=== PATIENT | female | born 1985 | race Caucasian/White ===

== ENCOUNTER → 2019-01-18 11:26 | Outpatient (CLI) | payer OTHER, SELFPAY ==
[2019-01-18 11:22] VITALS: BMI 35.3
--- NOTE | 2019-01-18 11:30 | RAD_ITS ---
STUDY: X-RAY - RIGHT ANKLE REASON FOR EXAM: Female, 33 years old. Lateral pain following a recent twisting injury to TECHNIQUE: 3 view(s) of the ankle. COMPARISON: None. FINDINGS: Normal visualized distal tibia and fibula. Normal medial and lateral malleoli. Normal tibiotalar articulation and ankle mortise. Normal visualized talus and calcaneus. The visualized subtalar, talonavicular, calcaneocuboid and tarsal articulations are normal. Lateral soft tissue swelling. RAD/Ankle min 3 Views IMPRESSION: Lateral soft tissue swelling. Electronically Signed: Ray Nguyen, at 12:21 EDT , Service support ,
== END ==
PROVIDERS: Family Provider Physician Assistant; PCP Physician Assistant; Referring Provider Physician Assistant Surgical; Visit Provider Physician Assistant Surgical
DX: S93.401A Sprain of unspecified ligament of right ankle, initial encounter (principal); W19.XXXA Unspecified fall, initial encounter
CPT/HCPCS: 73610

== ENCOUNTER 2021-08-11 15:50 | Outpatient (CLI) | payer OTHER, SELFPAY ==
[2021-08-11 16:18] VITALS: BP 122/79; TEMP 36.8
[2021-08-11 16:19] VITALS: PULSE 102; O2SAT 97
[2021-08-11 16:28] VITALS: BP 121/79; PULSE 99
[2021-08-11 16:30] LABS: Bedside Glucose 92 mg/dL (74-106)
[2021-08-11 16:38] VITALS: BP 118/72; PULSE 93
[2021-08-11] MEDS: 0.9% Normal Saline 1,000 ML 500 ML IV (17:05)
[2021-08-11] MEDS: Ondansetron 4 MG/2 ML Vial IV (17:09)
[2021-08-11 17:29] VITALS: BMI 34.4
[2021-08-11 17:33] LABS: Hematocrit 33.1 % (37-47); Hemoglobin 10.6 g/dL (12.0-15.0); Mean Corpuscular Hgb 28.3 pg (27.0-32.0); Mean Corpuscular Volume 88.5 fL (81-99); Mean Platelet Vol. 10.9 fl (6.2-12.0); Platelet Count 179 K/mm3 (150-450); RBC Distribution Width CV 15.9 % (11.6-14.6); RBC Distribution Width SD 51.7 fl (35.1-43.9); Red Blood Count 3.74 M/mm3 (4.2-5.4); White Blood Count 8.4 K/mm3 (4.4-11.0)
[2021-08-11 17:43] LABS: AST(SGOT) 20 U/L (15-37); Alanine Aminotransfer ALT/SGPT 27 U/L (13-56); Creatinine, Serum 0.51 mg/dL (0.55-1.02); EST Glomerular Filtration Rate 145 mL/min (>60); Est Glom Filt Rate - Afr Amer 175 mL/min (>60); Estimated Creatinine Clearance 146.87 ml/min
[2021-08-11 17:44] LABS: Anion Gap 8 (5-15); BUN 8 mg/dL (7-18); BUN/Creat Ratio 14.7 RATIO (10-20); Calcium,Total 8.9 mg/dL (8.5-10.1); Chloride 107 mmol/L (98-107); Creatinine, Serum 0.54 mg/dL (0.55-1.02); EST Glomerular Filtration Rate 134 mL/min (>60); Est Glom Filt Rate - Afr Amer 162 mL/min (>60); Estimated Creatinine Clearance 138.71 ml/min; Glucose 80 mg/dL (74-106); Potassium 3.5 mmol/L (3.5-5.1); Sodium Level 138 mmol/L (136-145)
[2021-08-11 18:02] LABS: Protein, Urine (Random) 91.7 mg/dL (<11.9); Protein:Creat Ratio 309 mg/g CRE (0-200)
--- NOTE | 2021-08-11 18:25 | OB.TRI.NOTE ---
HPI - General HPI Narrative BALTAZAR DEMPSEY, is a 36 F who presents with N&V since yesterday. She is feeling better since the zofran. Denies headache or blurry vision. Denies regular ctxs/VB/LOF. Also reports good FM. Maternal Data Information Gestational age: 34&5 PFSH [facility] Medical History (Updated 08/11/21 @ 18:[address] Brian Aguilar MD) Arthritis Home Medications acetaminophen 325 mg capsule 325 mg PO Q6H PRN 01/18/19 [History Last Taken Unknown] Benadryl 50 mg PO/SL QHS PRN 08/11/21 [History Last Taken Unknown] Humalog Pen 4 units OTHER BREAKFAST 08/11/21 [History Last Taken Unknown] Novolin N Flexpen 10 unit OTHER QHS 08/11/21 [History Last Taken 08/10/21 22:00] Novolin N Flexpen 16 unit OTHER DINNER 08/11/21 [History Last Taken 08/10/21 17:30] Novolin N Flexpen 30 units OTHER BREAKFAST 08/11/21 [History Last Taken 08/11/21 08:00] Prenatabs FA 1 tab PO/SL DAILY 08/11/21 [History Last Taken Unknown] iron 1 tablet PO/SL QODAY 08/11/21 [History Last Taken 08/09/21] omeprazole 1 tab PO/SL BID PRN 08/11/21 [History Last Taken Unknown] Allergy/AdvReac Type Severity Reaction Status Date / Time azithromycin Allergy Hives Verified 08/11/21 17:31 erythromycin base Allergy Unknown Verified 08/11/21 17:31 metoclopramide [From Reglan] Allergy Other Verified 08/11/21 17:31 Penicillins Allergy Hives Verified 08/11/21 17:31 Surgical History (Updated 01/18/19 @ 11:21 by Jodi Maxwell) Hx of section Social History (Updated 01/18/19 @ 12:08 by PHILOMENA Clarke) Smoking Status: Current some day smoker alcohol intake: never History Elective abortions Hx Para 1 Spontaneous abortions Hx # Term Pregnancies Ectopic pregnancies Hx # Pregnancies Multiple births # of living children NST FHR Rate Baby A Baseline: 135 Variability:: Moderate Accelerations:: 15 x 15 Decelerations:: None NST Reactive:: Yes Uterine Activity:: Irregular Assessment & Plan (1) Nausea/vomiting in : COMMENT: 34&5 PLAN: Labs overall normal Suspect GI virus IV hydration & anti-emetics GDM - BS normal Plan for discharge later today if continues to improve
[2021-08-11] MEDS: 0.9% Normal Saline 1,000 ML 200 ML IV (18:28)
--- NOTE | 2021-08-11 18:53 | NURSING ---
Patient is to skip Novolin N @ [facility]. Take full bedtime dose of Novolin N. Patient should not take Lispro while sick. If patient is still sick tomorrow, she should half each dose of her Novolin N.
[2021-08-11] MEDS: proMETHazine 25 MG Tablet PO (19:30)
[2021-08-11 19:42] VITALS: BP 119/73; PULSE 97
[2021-08-11] MEDS: Mag Hydrox/Al Hydrox/Simeth 30 ML UDC PO (21:26)
== END 2021-08-11 23:59 | disposition home or self-care (01) ==
LOC: WPOUT 16:01 → WP 16:01
PROVIDERS: PCP Physician Assistant; Visit Provider Obstetrics & Gynecology
DX: O21.2 Late vomiting of pregnancy (principal); O99.333 Smoking (tobacco) complicating pregnancy, third trimester; O99.891 Other specified diseases and conditions complicating pregnancy; F17.200 Nicotine dependence, unspecified, uncomplicated; M19.90 Unspecified osteoarthritis, unspecified site; Z3A.34 34 weeks gestation of pregnancy; Z79.899 Other long term (current) drug therapy
CPT/HCPCS: 36415; 59025; 59050; 80048; 82565; 82570; 82962; 84156; 84450; 84460; 84550; 85027; 96374; 99218; J7030; G0378; J2405

== ENCOUNTER 2021-09-10 05:00 | Inpatient (IN) | payer OTHER, SELFPAY ==
--- NOTE | 2021-09-07 10:34 | HP.PCM_ITS ---
History and Physical Date of Admission: 09/10/21 HPI: The patient is a 36 year old female presenting for pre-operative visit. She is scheduled for , for previous c/s, 39 weeks on 09/10/21. Procedure discussed along with risks, benefits and complications. Other alternatives discussed for management. Consent form signed? Yes. ? ? PAST MEDICAL HISTORY PAST MEDICAL HISTORY Diagnosis Date ? Anemia during in third trimester 07/06/2021 ? DEPRESSION ? ? elevated liver enzymes ? ? 1st ? Endometriosis ? ? Fibromyalgia ? ? Gestational diabetes mellitus, class A1 12/20/2016 ? Hypertension ? ? Infertility, female ? ? Clomid ? Lumbar herniated disc 10/2006 ? Migraines ? ? with aura ? PCOS (polycystic ovarian syndrome) ? ? depression ? ? ? PAST SURGICAL HISTORY PAST SURGICAL HISTORY Procedure Laterality Date ? DELIVERY ONLY ? 12/11/2013 ? , low transverse ? DELIVERY ONLY ? 03/06/2017 ? INSERTION OF IUD ? 07/31/2018 ? removed ? PAST SURGICAL HISTORY OF ? 2002 ? WISDOM TEETH ? ? ? CURRENT MEDICATIONS Current Outpatient Medications Medication Sig Dispense Refill ? lidocaine (XYLOCAINE) 5 % ointment Apply to affected area as needed (for rectal pain). use a small amount to affected area qid prn pain 50 g 1 ? insulin lispro 100 unit/mL injection Inject 4 Units subcutaneously daily with breakfast. 10 mL 0 ? insulin 50/50 lispro protamine/lispro units/mL (HUMALOG MIX 50-50 KWIKPEN) 100 unit/mL (50-50) inpn Inject 4 Units subcutaneously daily with breakfast. 15 mL 0 ? Insulin [place], Disposable, (PEN NEEDLE) 32 gauge x 5/32 1 Each once daily. 100 Each 5 ? insulin NPH (HumuLIN N,NovoLIN N) pen Inject 10 Units subcutaneously daily at bedtime. 30 units at breakfast and 16 units with supper 1 Pen 3 ? Insulin [place], Disposable, (MICRODOT INSULIN PEN NEEDLE) 32 gauge x 5/32 1 Each once daily. 30 Each 3 ? doxylamine-pyridoxine, vit B6, (DICLEGIS) 10-10 mg TbEC Take 2 tabs at night. If symptoms persist after 2 days add one tab in the morning. If symptoms still persist after 4 days add a tab mid-day 40 tablet 1 ? diphenhydramine HCl (BENADRYL ALLERGY ORAL) Take by mouth. ? ? ? Lancets lancets 1 Each four times daily. Use as instructed 120 Each 9 ? blood sugar diagnostic (FREESTYLE LITE STRIPS) test strip Use as instructed 120 Strip 4 ? omeprazole (PRILOSEC) 20 mg capsule Take 20 mg by mouth once daily. ? ? ? ondansetron orally disintegrating (ZOFRAN ODT) 4 mg disintegrating tablet Take 1 tablet by mouth every 8 hours as needed for nausea/vomiting. DISSOLVE ON TONGUE 30 tablet 1 ? [id number] fum-folic 27 mg iron- 800 mcg tab Take 1 tablet by mouth daily with breakfast. ? ? ? acetaminophen 325 mg cap PM ? ? ? DRYSOL 20 % external solution APPLY ONCE DAILY TO AFFECTED AREA(S) AT BEDTIME. ONCE EXCESSIVE SWEATING HAS STOPPED MAY DECREASE TO ONCE OR TWICE WEEKLY OR NEEDED. WASH ? ? ? acetaminophen 300 mg-caffeine 40 mg-butalbital 50 mg (FIORICET) per capsule Take 1 capsule by mouth every 4 hours as needed. (Patient not taking: Reported on 08/03/2021 ) 15 capsule 0 ? No current facility-administered medications for this visit. ? ? ALLERGIES: Penicillins, Erythromycin Base, and Reglan [Metoclopramide Hcl] ? PERSONAL HISTORY: SOCIAL HISTORY Social History ? Tobacco Use ? Smoking status: Current Some Day Smoker ? ? Years: 5.00 ? ? Types: Cigarettes ? Smokeless tobacco: Former User ? ? Types: Snuff ? ? Quit date: 03/30/2013 ? Tobacco comment: 1-3 cigarettes a day Vaping Use ? Vaping Use: Former ? Quit date: 02/05/2017 Substance Use Topics ? Alcohol use: Yes ? ? Comment: occasionally, NOT WHILE ? Drug use: No ? FAMILY HISTORY: FAMILY HISTORY FAMILY HISTORY Problem Relation Age of Onset ? Heart Father ? ? Hypertension Father ? ? Hypertension Paternal Grandmother ? ? Heart Paternal Grandmother ? ? other (PARKINSONS DISEASE) Paternal Grandmother ? ? Hypertension Paternal Grandfather ? ? Cancer Paternal Grandfather ? ? PRE-LEUKEMIA ? other ( DEPRESSION) Mother ? ? HAD ATTACHMENT DISORDER ? ? REVIEW OF SYMPTOMS: GENERAL: denies fevers or chills ENDOCRINOLOGY: has not been on steroids Cardiology : denies palpitations or chest pain Respiratory: denies SOB or cough Hematology: denies history of prolonged bleeding or easy bruising or VTE Allergy: Denies history of personal or family history of allergy to anesthesia ? PHYSICAL EXAMINATION: ? VITALS: Last menstrual period 12/05/2020. ? GENERAL: The patient is well nourished, well hydrated in no acute distress. , The patient is oriented to time, place, and person. NECK: Supple. No lynphadenopathy, normal thyroid, no thyromegaly. LUNGS: Clear to auscultation bilaterally. no wheezes, rhonchi or rales HEART: Regular rate and rhythm, Normal heart sounds and No murmurs or gallops abd- soft, nontender, gravid IMPRESSION: Estimated Date of Delivery: 09/17/21 w/ GDM A2 for repeat c/s ? PLAN: The risks/benefits/alternatives and personal involved for the planned repeat c/s were reviewed with the patient. Her questions were answered to her satisfaction and she desires to proceed. Consent was signed. I reviewed with her postop instructions and expectations. ? ? I have reviewed and updated past medical and surgical history, medications and allergies Assessment & Plan Assessment/Plan (1) Supervision of other high risk pregnancies, third trimester: (2) 39 weeks gestation of : (3) Gestational diabetes mellitus, class A2: (4) Advanced maternal age (AMA) in :
[2021-09-10] VITALS (24 sets, daily range): BP systolic 108–128; BP diastolic 58–95; PULSE 64–92; RESP 16–18; TEMP 36–36.6; O2SAT 93–99; BMI 35.0
[2021-09-10] MEDS: Lactated Ringers 1,000 ML 999 ML IV (05:35)
[2021-09-10] MEDS: Acetaminophen 500 MG Tablet 1000 MG PO ×4 (06:04→23:34)
[2021-09-10 06:14] LABS: Absolute Neutrophil Count 6.4 X10^3/uL (2.0-7.7); Basophil# 0.03 X10^3/uL; Basophil% 0.3 % (0-1); Eosinophil# 0.15 X10^3/uL; Eosinophils% 1.7 % (0-5); Hematocrit 32.3 % (37-47); Hemoglobin 10.4 g/dL (12.0-15.0); Lymphocyte % 17.3 % (19-41); Mean Corp Hgb Conc 32.2 g/dL (32-36); Mean Corpuscular Hgb 28.1 pg (27.0-32.0); Mean Corpuscular Volume 87.3 fL (81-99); Mean Platelet Vol. 11.5 fl (6.2-12.0); Monocyte# 0.48 X10^3/uL; Monocyte% 5.5 % (0-10); NRBC Flagged by Analyzer 0.7 % (0-5); Neutrophil # 6.39 X10^3/uL (2.7-7.7); Neutrophil % 73.8 % (47-70); Platelet Count 209 K/mm3 (150-450); RBC Distribution Width CV 15.7 % (11.6-14.6); RBC Distribution Width SD 49.7 fl (35.1-43.9); White Blood Count 8.7 K/mm3 (4.4-11.0)
[2021-09-10 06:15] LABS: Bedside Glucose 127 mg/dL (74-106)
[2021-09-10] MEDS: Lactated Ringers 1,000 ML 150 ML IV (06:26)
[2021-09-10] MEDS: Sodium Citrate/Citric Acid 30 ML UDC PO (07:07)
[2021-09-10] MEDS: Clindamycin 900 MG/50 ML BAG 75 MG IV (07:42)
--- NOTE | 2021-09-10 08:12 | OP.PCM_ITS ---
Maternal Data Information Final JAISON: 09/17/21 Gestational age: 39 0/7 Details Operative Information Date of Procedure: 09/10/21 Pre-Operative Diagnosis: 39 weeks, previous c/s Post-Operative Diagnosis: same Indications for : Repeat Elective Classification: Scheduled Procedure Type: low transverse four roll calender operator #1: Kerrie Hopkins Type of Anesthesia: Spinal Anesthesiologist: Zach Charles Special Medications: duramorph Antibiotic Given: Clindamycin 600mg IV x1 and Gentamicin 1.5mg/kg IV x1 Drain: Chaudhry to straight drain Estimated Blood Loss: 800 Fluids Replaced: 900 Procedure Start Time: 07:45 Procedure Stop Time: 08:14 Time of Delivery: 07:47 Findings Description of Procedure: The patient was taken to the operating room. She was prepped and draped in the dorsal supine position with a leftward tilt. A Pfannenstiel skin incision was made approximately 2 cm above the symphysis pubis and carried through to underlying layer fascia with the scalpel. The fascia was incised incised in the midline and extended laterally with the Gonzalez scissors. The fascia was dissected off the rectus muscles with blunt and sharp dissection. The rectus muscles were in the midline and the peritoneum was entered [bluntly]. The peritoneal incision was stretched and the bladder blade was placed. The uterine incision was made in a low transverse fashion with the scalpel and extended superiorly and inferiorly with blunt dissection. [The amniotic membranes were ruptured bluntly and clear amniotic fluid returned]. The 's head was brought to the incision in the flexed position and delivered without difficulty. The remainder of the infant was delivered with gentle traction and fundal pressure in the standard fashion. The mouth and nares were bulb suctioned. The cord was clamped and cut as the infant was stimulated. Cord clamping was delayed. The infant was handed off to the waiting nursing staff. The placenta was delivered with fundal massage and gentle traction in the standard fashion. The uterus was left in the peritoneal cavity cleared of all clots and debris. The cervix was dilated with a ring forcep. The uterine incision was closed with #1 Vicryl in a running locked fashion. A second layer of the same suture was used in an imbricating fashion. 2 [id number] sutures were needed to obtain hemostasis of some bleeding sinuses. The tubes and ovaries were examined and found to be normal. The incision was examined and was found to be hemostatic. The rectus muscles were examined and any bleeding was Bovie cauterized. The parietal peritoneum and rectus muscles were closed en bloc with an 0 Vicryl running suture. The surgical teams outer gloves were then changed. The rectus fascia was examined and any bleeding was Bovie cauterized and the rectus fascia was closed with 0 PDS suture in a running standard fashion. The subcutaneous tissue was examining and any bleeding was Bovie cauterized. The subcutaneous tissue was reapproximated with 3-0 Vicryl suture. The skin was closed in a subcuticular fashion by the DIRECTOR OF SURGERY with me present in the labor and delivery suite. I performed the remainder of the procedure with assistance. All sponge, lap, and needle counts were correct. The patient was taken to her room for recovery in a stable condition. Presentation: Positive for Vertex Amniotic Membrane Rupture Type: Spontaneous Amniotic Fluid Description: Clear Placental Delivery Description: Expressed Placenta Disposition: [facility] Specimen(s) Sent to Pathology: none Cord Vessel Description: 3 Vessels Cord Entanglement: None Infant A Gender: Male (9 lb 1 oz) (1 minute): 8 (5 minute): 9 Delayed Cord Clamping: Yes Complications Complications: none Admit VTE Documentation VTE Present on Admission: No VTE Mechan Device Prophylaxis: SCD's VTE Pharm Prophylaxis Ordered: Yes
[2021-09-10] MEDS: Oxytocin 30 units/NS 500 ml 30 UNITS/500 ML IV.SOLN 167 UNITS IV (08:45)
[2021-09-10] MEDS: Ketorolac 30 MG/ML Syringe IV ×3 (09:20→22:23)
[2021-09-10 09:30] LABS: Bedside Glucose 89 mg/dL (74-106)
[2021-09-10] MEDS: Senna/Docusate Sodium 1 Tablet PO (10:38)
[2021-09-10] MEDS: Lactated Ringers 1,000 ML 100 ML IV (12:09)
[2021-09-10] MEDS: Enoxaparin 40 MG/0.4 ML Syringe SC (20:18)
[2021-09-11 02:12] VITALS: BP 111/69; PULSE 76; RESP 14; TEMP 36.7; O2SAT 93
[2021-09-11 04:20] VITALS: BP 120/70; PULSE 86; RESP 14; TEMP 36.4; O2SAT 95
[2021-09-11] MEDS: Ketorolac 30 MG/ML Syringe IV (04:30)
[2021-09-11 06:02] VITALS: BP 115/71; PULSE 81; RESP 14; TEMP 36.6; O2SAT 96
[2021-09-11] MEDS: Acetaminophen 500 MG Tablet 1000 MG PO ×2 (06:18→12:16)
[2021-09-11 06:26] LABS: Hematocrit 29.8 % (37-47); Hemoglobin 9.4 g/dL (12.0-15.0); Mean Corp Hgb Conc 31.5 g/dL (32-36); Mean Corpuscular Hgb 27.7 pg (27.0-32.0); Mean Corpuscular Volume 87.9 fL (81-99); Mean Platelet Vol. 10.8 fl (6.2-12.0); Platelet Count 159 K/mm3 (150-450); RBC Distribution Width CV 15.8 % (11.6-14.6); RBC Distribution Width SD 50.2 fl (35.1-43.9); Red Blood Count 3.39 M/mm3 (4.2-5.4); White Blood Count 10.2 K/mm3 (4.4-11.0)
[2021-09-11 06:51] LABS: Bedside Glucose 78 mg/dL (74-106)
--- NOTE | 2021-09-11 06:59 | PCM.PN.OB ---
Subjective Subjective Patient seen at bedside. Feeling good. Denies any pain. Pain controlled with Tylenol and Toradol. Ambulating and voiding without difficulty. without support. Desires discharge home later today. Objective Data Objective Data Vital Signs: Vital Signs Temp Pulse Resp BP Pulse Ox 97.9 F 81 14 115/71 96 09/11/21 06:02 09/11/21 06:02 09/11/21 06:02 09/11/21 06:02 09/11/21 06:02 Oxygen Delivery Method Room Air Weight: 224 lb Body Mass Index (BMI) 35.0 Intake & Output: Intake and Output for Last 24 Hours 09/09/21 09/10/21 09/11/21 23:59 23:59 23:59 Intake Total 2711.42 / 2711.42 Output Total 1150 / 1150 Balance 1561.42 / 1561.42 Lab / Micro Data Result Diagrams: 09/11/21 06:10 Labs: Laboratory Results - last 24 hr 09/10/21 05:35: Blood Type O POSITIVE, Antibody Screen NEGATIVE 09/10/21 09:28: POC Glucose 89 09/11/21 06:10: WBC 10.2, RBC 3.39 L, Hgb 9.4 L, Hct 29.8 L, MCV 87.9, MCH 27.7, MCHC 31.5 L, RDW Std Deviation 50.2 H, RDW Coeff of Lux 15.8 H, Plt Count 159, MPV 10.8 09/11/21 06:40: POC Glucose 78 Micro: Microbiology 09/10/21 05:35 Nasal Secretion SARS-CoV-2 Antigen (Rapid) - Final ROS Eyes Eyes: Denies blurry vision, change in vision or spots in vision ENT HEENT: Denies dizziness or headache(s) Cardiovascular Cardiovascular: Denies abdominal pain, chest pain or dyspnea Respiratory/Chest Respiratory/Chest: Denies cough, dyspnea, shortness of breath at rest or shortness of breath with exertion Gastrointestinal Gastrointestinal: Denies abdominal pain, diarrhea or vomiting Genitourinary Genitourinary: Denies change in urinary stream, difficulty urinating or dysuria Musculoskeletal Musculoskeletal: Reports none Integumentary Integumentary: Denies rash Neurologic Neurologic: Denies dizziness, headache(s), memory loss or weakness Physical Exam Narrative Dressing is dry and intact Const alert and no apparent distress General Appearance: cooperative and comfortable Exam Limitations: no limitations HEENT normocephalic Eyes General Eye: normal appearance of both eyes Neck full ROM General: normal visual inspection Chest Chest: symmetrical chest wall rise Resp normal respiratory effort and normal air movement Effort and Inspection: symmetric chest movement Auscultation: clear to auscultation bilaterally Cardio regular rate and regular rhythm GI normal to inspection, nondistended, normoactive bowel sounds Back/Spine normal ROM Extremity full ROM and no calf tenderness General Extremity: normal exam except as noted Skin no rashes or lesions noted Neuro CN's II-XII intact bilaterally Psych mental status grossly normal Assessment & Plan (1) Delivery by section: (2) Care and examination of lactating mother: (3) Gestational diabetes mellitus, class A2: PLAN: PO day 1 Repeat C/S Pain control Routine care support BS stable this morning - 78 D/c home with follow up in office Friday for incision check
--- NOTE | 2021-09-11 07:07 | PCM.DC.SUM ---
Providers Date of Admission: 09/10/21 Primary Care Physician: PHILOMENA Martinez Reason For Visit: REPEAT Diagnosis Discharge Diagnosis (1) Delivery by section: Status: Acute (2) Care and examination of lactating mother: Status: Acute Code(s): Z39.1 - Encounter for care and examination of lactating mother (3) Gestational diabetes mellitus, class A2: Status: Acute Code(s): O24.419 - Gestational diabetes mellitus in , unspecified control Medications at Discharge Home Medications Prenatabs FA 1 tab PO/SL DAILY 08/11/21 iron 1 tablet PO/SL QODAY 08/11/21 Hospital Course Operations section Summary of Care Provided Hospital Course: Patient here for repeat section. Hospital course was uneventful. Physical Exam Narrative Dressing is dry and intact Const alert and no apparent distress General Appearance: cooperative and comfortable Exam Limitations: no limitations HEENT normocephalic Eyes General Eye: normal appearance of both eyes Neck full ROM General: normal visual inspection Chest Chest: symmetrical chest wall rise Resp normal respiratory effort and normal air movement Effort and Inspection: symmetric chest movement Auscultation: clear to auscultation bilaterally Cardio regular rate and regular rhythm GI normal to inspection, nondistended, normoactive bowel sounds Back/Spine normal ROM Extremity full ROM and no calf tenderness General Extremity: normal exam except as noted Skin no rashes or lesions noted Neuro CN's II-XII intact bilaterally Psych mental status grossly normal Weight / BMI Weight Weight: 224 lb Body Mass Index (BMI) 35.0 ABG / Lab / Microbiology Data Result Diagrams: 09/11/21 06:10 Laboratory: Laboratory Results - last 24 hr 09/10/21 05:35: Blood Type O POSITIVE, Antibody Screen NEGATIVE 09/10/21 09:28: POC Glucose 89 09/11/21 06:10: WBC 10.2, RBC 3.39 L, Hgb 9.4 L, Hct 29.8 L, MCV 87.9, MCH 27.7, MCHC 31.5 L, RDW Std Deviation 50.2 H, RDW Coeff of Lux 15.8 H, Plt Count 159, MPV 10.8 09/11/21 06:40: POC Glucose 78 Microbiology: Microbiology 09/10/21 05:35 Nasal Secretion SARS-CoV-2 Antigen (Rapid) - Final D/C Instructions Discharge Diet: No restrictions May resume sexual activity in: 6-8 weeks Weight Bearing Status: Weight bearing as tolerated Lifting Restrictions: 20 lbs Call your doctor if your incision/area has: Continuous Slow Oozing, Increased Pain/ Swelling, Increased Redness, Foul Smelling Discharge and Swelling at the incision site Call your doctor if you observe: Fever of 101 or Higher, Inability to urinate, Using more than 1 pad per hour, Shortness of breath, Chest pain, Calf discomfort and Uncontrolled pain Remove Dressing in: 5 days Cleanse incision/area with: Soap & Water and Keep Dressing Clean & Dry When: 1 week in office for incision check or sooner if needed 6 weeks Meaningful Use Info Meaningful Use Diagnoses (Choose all that apply): None applicable Discharge Plan Admission Admit Date/Time: 09/10/21 05:00 Primary Reason for Your Visit: Repeat section Attending Provider: Consuelo Llanos Primary Care Provider: Emili Dennis Discharge Orders/Prescriptions Prescriptions: Continued Prenatabs FA 1 tab PO/SL DAILY RF: 0 iron 1 tablet PO/SL QODAY RF: 0 Discontinued [id number] [Fioricet] 50-325-40 mg Tablet 1 tab PO PRN PRN (Reason: Headache) RF: 0 Benadryl 50 mg PO/SL QHS PRN (Reason: Sleep) RF: 0 Novolin N Flexpen 10 unit OTHER QHS RF: 0 Novolin N Flexpen 30 units OTHER BREAKFAST RF: 0 Novolin N Flexpen 16 unit OTHER DINNER RF: 0 omeprazole 1 tab PO/SL BID PRN (Reason: Heartburn) RF: 0 ondansetron 4 mg tablet,disintegrating 4 mg PO Q8H PRN (Reason: nausea and vomiting) Qty: 20 RF: 0 Referrals / Follow Up: Emili Dennis PA [Primary Care Provider] - Disposition Disposition (needs filled in before D/C Order can be placed): Home, Self Care
[2021-09-11 10:01] VITALS: BP 123/83; PULSE 89; RESP 18; TEMP 36.6; O2SAT 99
[2021-09-11] MEDS: Ibuprofen 600 MG Tablet PO (10:20)
[2021-09-11] MEDS: Senna/Docusate Sodium 1 Tablet PO (10:20)
== END 2021-09-11 13:25 | disposition home or self-care (01) | DRG 788 ==
PROVIDERS: Admitting Provider Obstetrics & Gynecology; PCP Physician Assistant; Visit Provider Obstetrics & Gynecology
PROC: 10D00Z1 Extraction of Products of Conception, Low, Open Approach (ICD-10-PCS; CPT 59514; principal; 2021-09-10 07:15)
DX: O34.211 Maternal care for low transverse scar from previous cesarean delivery (principal); O24.429 Gestational diabetes mellitus in childbirth, unspecified control; F17.210 Nicotine dependence, cigarettes, uncomplicated; Z79.4 Long term (current) use of insulin; O99.334 Smoking (tobacco) complicating childbirth; Z79.899 Other long term (current) drug therapy; Z3A.39 39 weeks gestation of pregnancy; Z20.822 Contact with and (suspected) exposure to COVID-19; Z37.0 Single live birth
CPT/HCPCS: 59025; 59050; 82962; 85025; 85027; 86850; 86900; 86901; 87426; 99218; 99251; 99406; J7120; G0378; G0463; J2405

== ENCOUNTER 2023-04-26 18:05 | Emergency (ER) | payer OTHER, SELFPAY ==
[2023-04-26 18:06] VITALS: BP 143/97; PULSE 71; RESP 16; TEMP 36.5; O2SAT 100; BMI 31.0
--- NOTE | 2023-04-26 18:25 | EDS_ITS ---
HPI History of Present Illness Chief Complaint: Nausea/Vomiting Informant: patient Onset/Context/Timing Onset: Days Narrative Narrative: Patient presents secondary to nausea and vomiting. She believes she is approx imately 6 weeks . She had GI symptoms over the break and just recently had 3 positive home test. She saw her [facility] because patient had an IUD. Ultrasounds did not reveal IUD and it is believed that it had fallen out. Patient states there was no evidence of ectopic on her ultrasound. She presents today secondary to nausea and vomiting. She did have hyperemesis with 2 out of her 3 prior pregnancies. [facility] Medical History 39 weeks gestation of Advanced maternal age (AMA) in Arthritis Care and examination of lactating mother Chronic hypertension Depression Gestational diabetes Gestational diabetes mellitus, class A2 depression Smoking Supervision of other high risk pregnancies, third trimester Home Medications Prenatabs FA 1 tab PO/SL DAILY 08/11/21 [History Last Taken 09/09/21] iron 1 tablet PO/SL QODAY anemia 08/11/21 [History Last Taken 09/06/21] cefdinir 300 mg capsule 300 mg PO BID #14 caps 04/17/23 [Rx Last Taken Unknown] dextromethorphan-guaifenesin 10 mg-100 mg/5 mL oral liquid (Adult Tussin Cough Congestion DM) 10 ml PO Q4H PRN cough #500 mL 04/17/23 [Rx Last Taken Unknown] ondansetron 4 mg disintegrating tablet 4 mg PO Q8H PRN PRN Nausea #20 tabs 04/26/23 [Rx Last Taken Unknown] promethazine 25 mg tablet 25 mg PO Q6H PRN nausea and vomiting #20 tabs 04/26/23 [Rx Last Taken Unknown] Allergy/AdvReac Type Severity Reaction Status Date / Time metoclopramide [From Reglan] Allergy Mild Other Verified 04/26/23 18:08 azithromycin Allergy Hives Verified 04/26/23 18:08 erythromycin base Allergy Unknown Verified 04/26/23 18:08 Penicillins Allergy Hives Verified 04/26/23 18:08 Family History Grandmother Heart defect Surgical History Delivery by section Hx of section [place] teeth extracted Social History Smoking Status: Current some day smoker tobacco type: cigarettes alcohol intake: never ROS ROS ED Constitutional Constitutional ED: Denies chills or fever(s) Eyes Eyes: Denies discharge from eye(s) ENT ENT ED: Denies discharge from eye(s), rhinorrhea or sore throat Cardiovascular Cardiovascular: Denies chest pain or palpitations Respiratory/Chest Respiratory/Chest: Denies cough or dyspnea Gastrointestinal Gastrointestinal: Reports nausea and vomiting; Denies abdominal pain or diarrhea Genitourinary Genitourinary ED: Denies dysuria Musculoskeletal Musculoskeletal: Denies back pain or extremity pain Integumentary Denies Abrasions or rash Neurologic Neurologic: Denies headache(s) or weakness Psychiatric Psychiatric: Denies anxiety or depression Allergic/Immunologic Allergic/Immunologic ED: Denies lip swelling or urticaria EXAM Physical Exam Const Vital Signs: 04/26/23 18:06 Temperature 97.7 F L Temperature Source Temporal Pulse Rate 71 Respiratory Rate 16 Blood Pressure 143/97 H Blood Pressure Mean 112 Pulse Ox 100 Oxygen Delivery Method Room Air Positive well nourished and well developed General Appearance ED: well developed HEENT Reports dry mucous membranes Mouth ED: Yes dry mucous membranes Mouth: dry mucous membranes Eyes EOMs intact bilaterally Chest Wall inspection of chest normal and palpation of chest normal Resp normal respiratory effort and clear to auscultation bilaterally Cardio regular rate and regular rhythm GI non-tender Auscultation: hypoactive bowel sounds Palpation: soft Extremity normal to inspection Neuro oriented x3 and no sensory deficits noted Motor Exam: strength 5/5 throughout Psych mental status grossly normal Skin no rashes or lesions noted MDM MDM MDM Narrative Medical decision making narrative: Patient's blood type is checked in the computer and she is a positive. IV line established. Patient given IV fluid bolus. She states Phenergan works best for her nausea and this was ordered as a p.o. tablet. There is a shortage on the IM injection. Labwork obtained to evaluate for leukocytosis, anemia, and electrol yte derangement. Urinalysis obtained to evaluate for infection/hematuria. History & Record Review Discussion w/independent historian: Patient Additional record(s) reviewed:: Prior labs Lab Data Attestation: I reviewed the patient's lab results. Labs: Laboratory Results - last 24 hr 04/26/23 04/26/23 18:35 19:05 WBC 11.9 H RBC 4.82 Hgb 13.8 Hct 41.9 MCV 86.9 MCH 28.6 MCHC 32.9 RDW Std Deviation 45.0 H RDW Coeff of Lux 13.9 Plt Count 229 MPV 10.6 Immature Gran % (Auto) 0.600 Neut % (Auto) 73.5 H Lymph % (Auto) 17.4 L [place] % (Auto) 6.8 Eos % (Auto) 1.4 Baso % (Auto) 0.3 Absolute Neuts (auto) 8.8 H Absolute Lymphs (auto) 2.08 Nucleated RBC % 0 Sodium 136 Potassium 3.7 Chloride 105 Carbon Dioxide 26.0 Anion Gap 5 BUN 9 Creatinine 0.63 Estim Creat Clear Calc 116.59 Est GFR (MDRD) Af Amer 136 Est GFR (MDRD) Non-Af 113 BUN/Creatinine Ratio 14.4 Glucose 84 Calcium 9.5 HCG, Quant 28692 H Urine Color Yellow Urine Clarity Sl. Cloudy Urine pH 8.0 Ur Specific [place] 1.015 Urine Protein Negative Urine Glucose (UA) Normal Urine Ketones Negative Urine Occult Blood Negative Urine Nitrite Negative Urine Bilirubin Negative Urine Urobilinogen Normal Ur Leukocyte Esterase Negative Urine RBC 0 SEEN Urine WBC 0 SEEN Ur Squamous Epith Cells 0-5 SEEN Urine Bacteria 0 SEEN Urine Mucus 0 SEEN Treatment and Re-Evaluation :: CBC was a white count 11.9 with 73% neutrophils. This is likely reactive from vomiting. Hemoglobin normal at 13.8. Chemistry studies are unremarkable. Glucose is 84. Quant is 90,271. Urinalysis reveals no evidence of acute infection. No ketones noted. After p.o. Phenergan patient's nausea is improved. I will write her prescriptions for both Phenergan and Zofran. She will follow-up with [facility] as scheduled. Discharge Plan Triage Chief Complaint: Nausea/Vomiting ED Provider: Shena Moore Dx/Rx/DC Orders Clinical Impression: First trimester , Vomiting Instructions: 1st Trimester, ED Vomiting (Adult) Prescriptions: New ondansetron 4 mg tablet,disintegrating 4 mg PO Q8H PRN PRN (Reason: Nausea) Qty: 20 0RF promethazine 25 mg tablet 25 mg PO Q6H PRN (Reason: nausea and vomiting) Qty: 20 0RF No Action cefdinir 300 mg capsule 300 mg PO BID Qty: 14 0RF dextromethorphan-guaifenesin [Adult Tussin Cough Congest DM] 10-100 mg/5 mL liquid 10 ml PO Q4H PRN (Reason: cough) Qty: 500 0RF Prenatabs FA 1 tab PO/SL DAILY iron 1 tablet PO/SL QODAY Primary Care Provider: Emili Dennis Referrals: Consuelo Llanos MD [Med Staff - Active Staff] - 1 Week if not improving Emili Dennis PA [Primary Care Provider] - Disposition Disposition: Home, Self Care
--- OUTSIDE RECORDS SUMMARY | 2023-04-26 18:27 | XMS RPT_ITS | CCD ---
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 Hypertension Paternal Grandmother Heart Paternal Grandmother other (PARKINSONS DISEASE) Paternal Grandmother Hypertension Paternal Grandfather Cancer Paternal Grandfather PRE-LEUKEMIA other ( DEPRESSION) Mother HAD ATTACHMENT DISORDER Social History Tobacco Use Smoking status: Some Days Years: 5.00 Types: Cigarettes Smokeless tobacco: Former Types: Snuff Quit date: 03/30/2013 Tobacco comments: 1-3 cigarettes a day Vaping Use Vaping Use: Former Quit date: 02/05/2017 Substance Use Topics Alcohol use: Yes Comment: occasionally, NOT WHILE Drug use: No Current Outpatient Medications Medication Sig levonorgestrel (MIRENA) 20 mcg/24 hours (7 yrs) 52 mg IUD 1 Each by INTRAUTERINE route as directed. escitalopram oxalate (LEXAPRO) 10 mg tablet Take 1 tablet by mouth once daily. lidocaine (XYLOCAINE) 5 % ointment Apply to affected area as needed (for rectal pain). use a small amount to affected area qid prn pain (Patient not taking: Reported on 12/12/2021) omeprazole (PRILOSEC) 20 mg capsule Take 20 mg by mouth once daily. (Patient not taking: Reported on 12/12/2021) [id number] fum-folic 27 mg iron- 800 mcg tab Take 1 tablet by mouth daily with breakfast. (Patient not taking: Reported on 12/12/2021) DRYSOL 20 % external solution APPLY ONCE DAILY TO AFFECTED AREA(S) AT BEDTIME. ONCE EXCESSIVE SWEATING HAS STOPPED MAY DECREASE TO ONCE OR TWICE WEEKLY OR NEEDED. WASH (Patient not taking: Reported on 12/12/2021) No current facility-administered medications for this visit. ALLERGIES Allergen Reactions Penicillins Anaphylaxis And penicillin drug family Erythromycin Base Hives CHILDHOOD ALLERGY Reglan [Metoclopram* Other: See Comments Panic attack PHYSICAL EXAMINATION: VIDEO EXAM: (if completed, performed via video enabled technology) GENERAL: alert and appropriate, in no distress, well-hydrated, well nourished, and interactive, smiles some ASSESSMENT: Anxiety PLAN: cont. lexapro, increase to 15 mg. Call if side effects or change in mood. Encouraged to remain on through holidays and reevaluate. contact office if wants to wean off There are no Patient Instructions on file for this visit. Neva Ro MD documented in this encounter [facility] 12-12-2021 Instructions Renata Mortensen Ma - 12/12/2021 3:16 PM EDT POST IUD INSTRUCTIONS You may have irregular bleeding during the first 3 months of use. You may have mild-severe cramping for the next 48 hours. You may use over the counter medication (Motrin, Tylenol) as needed. Your IUD must be removed or replaced based on the following table: IUD Type Removed or replaced within: Lynn 3 years Kyleena 5 years Mirena 7 years Paragard 10 years Call my office for signs/symptoms of infection such as severe cramping, fever, or unusual bleeding. Check for string placement as instructed by your doctor. If you have any additional questions, please contact the office. documented in this encounter [facility] 12-12-2021 History of Presen t illness Narrative Lynn presents today for IUD insertion for contraception. Patient's last menstrual period was 12/08/2020 (approximate). GC/chlamydia: Not done: no risk factors and/or patient declines screening test: negative Side effects including irregular bleeding were discussed with the patient. The patient understands that it should be removed in 7 years or sooner if the patient desires a . IUD source: office provided IUD lot #: [id number] Exp date: 02/26/2024 UNIVERSAL PROTOCOL / SAFETY CHECKLIST Procedure to be Performed: Mirena IUD insetion Sign In: A Moment of CARE was completed. Personnel directly involved with the procedure wore the appropriate PPE (Personal Protective Equipment). Patient/Surrogate Stated/Verified: PATIENT VERIFIED(optional for EMERGENT procedures): Patient name, Date of , Relevant allergies, and The intended procedure Time Out Communication: Intended patient and procedure match the source documents. Consent documented and matches the intended procedure. Implant(s) inserted: Correct implant(s) confirmed including size and side. and Expiration date(s) reviewed. Sign Out: SIGN OUT (optional for EMERGENT procedures): No specimen collected. All instruments, equipment, possible retained foreign bodies accounted for. Post-procedure follow-up management communicated and Plan of Care Visit completed when applicable. Neva Ro M.D. The uterus sounded to 9 cm and the uterus is Anteverted.. After prepping the cervix with betadine and using sterile technique, the Mirena IUD was inserted without difficulty and the string was cut to 2cm from the external os of the cervix. Patient tolerated procedure well. PLAN: Patient was advised to observe for signs and symptoms of infection including but not limited to fever, malodorous vaginal discharge and/or pain. The patient was told to check the string monthly for accurate placement. Bleeding expectations were reviewed. Follow up after next menses for string check. Neva Ro MD documented in this encounter [facility] 10-22-2021 History of Presen t illness Narrative VISIT Lynn Sanchez is a 36 year old year old here for visit. Delivery Summary: repeat c/s ROS/ Recovery: Feeding: Breast feeding problems: None Menses since delivery: n/a Menstrual pattern prior to : Regular periods [place] since delivery: Not resumed Depression: denies symptoms of depression. OB Depression and Anxiety Screening- This Encounter (since 10/21/2021) None Emotional support: Yes Bowel symptoms: Negative for abdominal discomfort, blood in stools or black stools and change in bowel habits Abdomen: She reports no incisional redness, tenderness, erythema Bladder symptoms: No dysuria, gross hematuria, urinary frequency, urinary urgency, or incontinence Other issues: None Last Pap: 2020 normal HPV: negative PAST MEDICAL HISTORY Diagnosis Date Anemia during in third trimester 07/06/2021 DEPRESSION Diet controlled gestational diabetes mellitus (GDM) in third trimester 12/20/2016 December 20, 2016 Has GDM. Needs supplies and teaching ERIKA. Neva Ro MD elevated liver enzymes 1st Endometriosis Endometriosis of right ovary 09/21/2020 Fibromyalgia Gestational diabetes mellitus, class A1 12/20/2016 Hypertension Infertility, female Clomid Lumbar herniated disc 10/2006 Migraines with aura PCOS (polycystic ovarian syndrome) depression PAST SURGICAL HISTORY Procedure Laterality Date DELIVERY ONLY 12/11/2013 , low transverse DELIVERY ONLY 03/06/2017 INSERTION OF IUD 07/31/2018 removed PAST SURGICAL HISTORY OF 2002 WISDOM TEETH FAMILY HISTORY Problem Relation Age of Onset Heart Father Hypertension Father Hypertension Paternal Grandmother Heart Paternal Grandmother other (PARKINSONS DISEASE) Paternal Grandmother Hypertension Paternal Grandfather Cancer Paternal Grandfather PRE-LEUKEMIA other ( DEPRESSION) Mother HAD ATTACHMENT DISORDER Social History Tobacco Use Smoking status: Current Some Day Smoker Years: 5.00 Types: Cigarettes Smokeless tobacco: Former User Types: Snuff Quit date: 03/30/2013 Tobacco comment: 1-3 cigarettes a day Vaping Use Vaping Use: Former Quit date: 02/05/2017 Substance Use Topics Alcohol use: Yes Comment: occasionally, NOT WHILE Drug use: No PHYSICAL EXAMINATION: Wt 188 lb (85.3kg) LMP 12/08/2020 GENERAL: pleasant, female in no apparent distress HEENT: Normocephalic, atraumatic, mucus membranes moist and no lesions NECK: Supple, full range of motion, no adenopathy and thyroid normal DERMATOLOGY: Normal, without lesions, non-icteric and non-hirsute BREAST: soft, non-tender, symmetric, no dominant mass, normal nipple-areolar complex, no lymphadenopathy and no nipple discharge CHEST: Normal inspiratory effort ABDOMEN: soft, non-tender and no masses. INCISION: No incisional redness, swelling, or drainage PELVIC: external genitalia normal, normal Bartholin's glands, urethra, [place]'s glands, no vulvar lesions, no cervical lesions, good vaginal support, physiologic discharge present, normal appearing perineal body and perianal region BIMANUAL: uterus normal size, shape and consistency, no adnexal masses and non-tender NEURO: alert and oriented x3,exam grossly non-focal EXTREMITIES: normal ASSESSMENT AND PLAN: 36 year old status post CS with normal course. Contraception plan: IUD - Mirena Follow up: GDM: Needs 2 hour GTT, RTC for insertion of IUD Neva Ro MD documented in this encounter [facility] 09-17-2021 History of Presen t illness Narrative EARLY VISIT Lynn Sanchez is a 36 year old here for 1 week visit. Delivery Summary: repeat c/s ROS: General: Denies any fever or chills Hypertension Screening: Headache? No. Visual Changes? No Epigastric Pain? No Increased Swelling? No Taking any BP medications at home? No If applicable, monitoring BP at home? (If Yes, include results) NA Mood: normal Depression: denies symptoms of depression. OB Depression and Anxiety Screening- This Encounter (since 09/16/2021) None Feeding: Breast feeding problems: None Bladder: No dysuria, gross hematuria, urinary frequency, urinary urgency, or incontinence Bowel symptoms: Negative for abdominal discomfort, blood in stools or black stools and change in bowel habits Abdomen: She reports no incisional redness, tenderness, erythema Bleeding: light flow Bottom and Perineum: Sore Sleep: no sleep concerns, feels rested [place] since delivery: Not resumed Emotional support: Yes Exercise: N/A Other issues: None PHYSICAL EXAMINATION: LMP 12/08/2020 (Approximate) General: pleasant,female in no apparent distress, A&O x 3. Skin warm and intact. Breast: Deferred Abdomen: soft, non-tender and no masses /Incision: No incisional redness, swelling, or drainage Pelvic: Deferred Bimanual: Deferred ASSESSMENT AND PLAN: 1. 36 year old status post CS with normal course. 2. Contraception plan: IUD - Mirena. Reinforced 6-week pelvic rest. Encouraged condom usage should patient deviate. 3. Education: resources provided - see MA/RN note Follow up: Return to Clinic for 6 week visit and as needed Medical Decision Making Neva Ro MD documented in this encounter [facility] 09-07-2021 History of Presen t illness Narrative NST SUMMARY PROVIDER ASSESSMENT AND INTERPRETATION Lynn Sanchez is a 36 year old female, , who is at 38w4d with an JAISON of 09/17/2021, by Ultrasound dating method. Indications for NST: AMA and Diabetes - Insulin Controlled Baseline: 135 Variability: Moderate Accelerations: Present 15 X 15 Decelerations: None Contractions: TOCO: Irregular Interpretation: Category I and Reactive SIGNATURE: Neva Ro MD documented in this encounter [facility] 09-07-2021 History and physical note Pre-Op History and Physical HPI: The patient is a 36 year old female presenting for pre-operative visit. She is scheduled for , for previous c/s, 39 weeks on 09/10/21. Procedure discussed along with risks, benefits and complications. Other alternatives discussed for management. Consent form signed? Yes. PAST MEDICAL HISTORY Diagnosis Date Anemia during in third trimester 07/06/2021 DEPRESSION elevated liver enzymes 1st Endometriosis Fibromyalgia Gestational diabetes mellitus, class A1 12/20/2016 Hypertension Infertility, female Clomid Lumbar herniated disc 10/2006 Migraines with aura PCOS (polycystic ovarian syndrome) depression PAST SURGICAL HISTORY Procedure Laterality Date DELIVERY ONLY 12/11/2013 , low transverse DELIVERY ONLY 03/06/2017 INSERTION OF IUD 07/31/2018 removed PAST SURGICAL HISTORY OF 2002 WISDOM TEETH Current Outpatient Medications Medication Sig Dispense Refill lidocaine (XYLOCAINE) 5 % ointment Apply to affected area as needed (for rectal pain). use a small amount to affected area qid prn pain 50 g 1 insulin lispro 100 unit/mL injection Inject 4 Units subcutaneously daily with breakfast. 10 mL 0 insulin 50/50 lispro protamine/lispro units/mL (HUMALOG MIX 50-50 KWIKPEN) 100 unit/mL (50-50) inpn Inject 4 Units subcutaneously daily with breakfast. 15 mL 0 Insulin [place], Disposable, (PEN NEEDLE) 32 gauge x 5/32 1 Each once daily. 100 Each 5 insulin NPH (HumuLIN N,NovoLIN N) pen Inject 10 Units subcutaneously daily at bedtime. 30 units at breakfast and 16 units with supper 1 Pen 3 Insulin [place], Disposable, (MICRODOT INSULIN PEN NEEDLE) 32 gauge x 5/32 1 Each once daily. 30 Each 3 doxylamine-pyridoxine, vit B6, (DICLEGIS) 10-10 mg TbEC Take 2 tabs at night. If symptoms persist after 2 days add one tab in the morning. If symptoms still persist after 4 days add a tab mid-day 40 tablet 1 diphenhydramine HCl (BENADRYL ALLERGY ORAL) Take by mouth. Lancets lancets 1 Each four times daily. Use as instructed 120 Each 9 blood sugar diagnostic (FREESTYLE LITE STRIPS) test strip Use as instructed 120 Strip 4 omeprazole (PRILOSEC) 20 mg capsule Take 20 mg by mouth once daily. ondansetron orally disintegrating (ZOFRAN ODT) 4 mg disintegrating tablet Take 1 tablet by mouth every 8 hours as needed for nausea/vomiting. DISSOLVE ON TONGUE 30 tablet 1 [id number] fum-folic 27 mg iron- 800 mcg tab Take 1 tablet by mouth daily with breakfast. acetaminophen 325 mg cap PM DRYSOL 20 % external solution APPLY ONCE DAILY TO AFFECTED AREA(S) AT BEDTIME. ONCE EXCESSIVE SWEATING HAS STOPPED MAY DECREASE TO ONCE OR TWICE WEEKLY OR NEEDED. WASH acetaminophen 300 mg-caffeine 40 mg-butalbital 50 mg (FIORICET) per capsule Take 1 capsule by mouth every 4 hours as needed. (Patient not taking: Reported on 08/03/2021 ) 15 capsule 0 No current facility-administered medications for this visit. ALLERGIES: Penicillins, Erythromycin Base, and Reglan [Metoclopramide Hcl] PERSONAL HISTORY: Social History Tobacco Use Smoking status: Current Some Day Smoker Years: 5.00 Types: Cigarettes Smokeless tobacco: Former User Types: Snuff Quit date: 03/30/2013 Tobacco comment: 1-3 cigarettes a day Vaping Use Vaping Use: Former Quit date: 02/05/2017 Substance Use Topics Alcohol use: Yes Comment: occasionally, NOT WHILE Drug use: No FAMILY HISTORY: FAMILY HISTORY Problem Relation Age of Onset Heart Father Hypertension Father Hypertension Paternal Grandmother Heart Paternal Grandmother other (PARKINSONS DISEASE) Paternal Grandmother Hypertension Paternal Grandfather Cancer Paternal Grandfather PRE-LEUKEMIA other ( DEPRESSION) Mother HAD ATTACHMENT DISORDER REVIEW OF SYMPTOMS: GENERAL: denies fevers or chills ENDOCRINOLOGY: has not been on steroids Cardiology : denies palpitations or chest pain Respiratory: denies SOB or cough Hematology: denies history of prolonged bleeding or easy bruising or VTE Allergy: Denies history of personal or family history of allergy to anesthesia PHYSICAL EXAMINATION: VITALS: Last menstrual period 12/05/2020. GENERAL: The patient is well nourished, well hydrated in no acute distress. , The patient is oriented to time, place, and person. NECK: Supple. No lynphadenopathy, normal thyroid, no thyromegaly. LUNGS: Clear to auscultation bilaterally. no wheezes, rhonchi or rales HEART: Regular rate and rhythm, Normal heart sounds and No murmurs or gallops abd- soft, nontender, gravid IMPRESSION: Estimated Date of Delivery: 09/17/21 w/ GDM A2 for repeat c/s PLAN: The risks/benefits/alternatives and personal involved for the planned repeat c/s were reviewed with the patient. Her questions were answered to her satisfaction and she desires to proceed. Consent was signed. I reviewed with her postop instructions and expectations. I have reviewed and updated past medical and surgical history, medications and allergies Neva Ro M.D. documented in this encounter [facility] 09-07-2021 Miscellaneous Notes RR- VB No. LOF No. CTXS few. Movement: present. Other c/o: Yes: Other: tired and sore from walking around zoo yesterday. Some n/v. BS stable. Medication list reviewed. Physical Exam See Flow Sheet Abd: soft, nontender, gravid Ext: edema: 1+ A/P 38w4d Estimated Date of Delivery: 09/17/21 Kick counts reviewed, NST reactive cont insulin plans repeat c/s, r/b/a reviewed, consent signed. . Neva Ro M.D. documented in this encounter [facility] 09-07-2021 Maria Esther Mortensen Co - 09/07/2021 9:37 AM EDT SEQUENTIAL SCREENINGS The [facility] offers sequential screenings for women who are interested in screenings for chromosomal abnormalities and certain defects during a . The sequential screen combines ultrasound and blood tests to determine the risk of chromosomal abnormalities, including Down's Syndrome (Trisomy 21) and Trisomy 18, as well as open neural tube defects including spina bifida. Ultrasound examination is performed between 11 weeks and 13 weeks gestational age. Blood tests are drawn after the ultrasound and again later in the between 15 and 21 weeks gestational age. Please let your physician know if you are interested in this testing. It will require an appointment with our calibration laboratory technician. This is not an ultrasound performed by a physician in our office during a routine visit. SIGNS AND SYMPTOMS OF LABOR 1. Contractions every 10 minutes or more often 2. Clear, pink, or brownish fluid (water) leaking from vagina 3. Feeling that baby is pushing down, pressure 4. Low, dull backache 5. Cramps that feel like a period 6. Cramps with or without diarrhea If you notice any of the above symptoms, contact our office at [phone] and ask to speak with a nurse. After hours, you can call doctors registry at [phone] OR call [facility] at [phone] and ask to have the doctor contact center agent paged. If you consider this an emergency, dial 2-5-7 or go to your nearest emergency department. NEED HELP? Are you dealing with a violent or abusive relationship? Are you a victim of rape or sexual assult? Call [facility] ([place]) 24 hour Crisis Hotline: 367.738.6853 or 150-483-0862. MANUAL Your Guide to a Healthy manual is now on-line. Visit [email or web address] to download your free copy documented in this encounter [facility] 09-03-2021 Instructions Renata Mortensen Ma - 09/03/2021 10:39 AM EDT SEQUENTIAL SCREENINGS The [facility] offers sequential screenings for women who are interested in screenings for chromosomal abnormalities and certain defects during a . The sequential screen combines ultrasound and blood tests to determine the risk of chromosomal abnormalities, including Down's Syndrome (Trisomy 21) and Trisomy 18, as well as open neural tube defects including spina bifida. Ultrasound examination is performed between 11 weeks and 13 weeks gestational age. Blood tests are drawn after the ultrasound and again later in the between 15 and 21 weeks gestational age. Please let your physician know if you are interested in this testing. It will require an appointment with our calibration laboratory technician. This is not an ultrasound performed by a physician in our office during a routine visit. SIGNS AND SYMPTOMS OF LABOR 1. Contractions every 10 minutes or more often 2. Clear, pink, or brownish fluid (water) leaking from vagina 3. Feeling that baby is pushing down, pressure 4. Low, dull backache 5. Cramps that feel like a period 6. Cramps with or without diarrhea If you notice any of the above symptoms, contact our office at [phone] and ask to speak with a nurse. After hours, you can call doctors registry at [phone] OR call [facility] at [phone] and ask to have the doctor contact center agent paged. If you consider this an emergency, dial 9-1-8 or go to your nearest emergency department. NEED HELP? Are you dealing with a violent or abusive relationship? Are you a victim of rape or sexual assult? Call [facility] ([place]) 24 hour Crisis Hotline: 748.242.2000 or 525-817-2119. MANUAL Your Guide to a Healthy manual is now on-line. Visit [email or web address] to download your free copy documented in this encounter [facility] 09-03-2021 History of Presen t illness Narrative NST SUMMARY PROVIDER ASSESSMENT AND INTERPRETATION Lynn Sanchez is a 36 year old female, , who is at 38w0d with an JAISON of 09/17/2021, by Ultrasound dating method. Indications for NST: AMA and Gestational Diabetes - Insulin Controlled Baseline: 140 Variability: Moderate Accelerations: Present 15 X 15 Decelerations: None Contractions: TOCO: None Interpretation: Category I and Reactive SIGNATURE: Neva Ro MD documented in this encounter [facility] 09-03-2021 Miscellaneous Notes RR- Taking insulin. Fastings at target. Some PP elevated. Good FM. No regular ctxs. No VB/LOF. NST today. Kick counts. plans repeat c/s f/u later this week or prn Neva Ro MD documented in this encounter [facility] 08-31-2021 Procedure note NST SUMMARY PROVIDER ASSESSMENT AND INTERPRETATION Lynn Sanchez is a 36 year old female, , who is at 37w4d with an JAISON of 09/17/2021, by Ultrasound dating method. Indications for NST: Antiphospholipid Syndrome and Gestational Diabetes - Insulin Controlled Baseline: 135 Variability: Moderate Accelerations: Present 15 X 15 Decelerations: None Contractions: TOCO: None Interpretation: Category I and Reactive SIGNATURE: Neva Ro MD documented in this encounter [facility] 08-31-2021 Miscellaneous Notes RR_ No VB/LOF. Good FM. No regular ctxs. BS log reviewed. Uncomfortable. Denies MEDINA or visual changes. A/p 37w4d GDMA2- bs w/ some elevated but inconsistent enough that adding more insulin would increase risk of hypoglycemia. Continue to monitor. NST reactie kick counts plan repeat c/s BP stalbe, no evidence of preeclampsia Neva Ro MD documented in this encounter [facility] 08-31-2021 Maria Esther Mortensen Ma - 08/31/2021 10:01 AM EDT SEQUENTIAL SCREENINGS The [facility] offers sequential screenings for women who are interested in screenings for chromosomal abnormalities and certain defects during a . The sequential screen combines ultrasound and blood tests to determine the risk of chromosomal abnormalities, including Down's Syndrome (Trisomy 21) and Trisomy 18, as well as open neural tube defects including spina bifida. Ultrasound examination is performed between 11 weeks and 13 weeks gestational age. Blood tests are drawn after the ultrasound and again later in the between 15 and 21 weeks gestational age. Please let your physician know if you are interested in this testing. It will require an appointment with our calibration laboratory technician. This is not an ultrasound performed by a physician in our office during a routine visit. SIGNS AND SYMPTOMS OF LABOR 1. Contractions every 10 minutes or more often 2. Clear, pink, or brownish fluid (water) leaking from vagina 3. Feeling that baby is pushing down, pressure 4. Low, dull backache 5. Cramps that feel like a period 6. Cramps with or without diarrhea If you notice any of the above symptoms, contact our office at [phone] and ask to speak with a nurse. After hours, you can call doctors registry at [phone] OR call [facility] at [phone] and ask to have the doctor contact center agent paged. If you consider this an emergency, dial 9-1-2 or go to your nearest emergency department. NEED HELP? Are you dealing with a violent or abusive relationship? Are you a victim of rape or sexual assult? Call [facility] ([place]) 24 hour Crisis Hotline: 904.328.7959 or 286-048-4844. MANUAL Your Guide to a Healthy manual is now on-line. Visit [email or web address] [email or web address] to download your free copy documented in this encounter [facility] 08-27-2021 Miscellaneous Notes RR- VB No. LOF No. CTXS No. Movement: present. Other c/o: yes, emesis this am. No persistent MEDINA or visual changes Medication list reviewed. Physical Exam See Flow Sheet Abd: soft, nontender, gravid Ext: edema: Trace A/P 37w0d Estimated Date of Delivery: 09/17/21 Kick counts reviewed, GDM A2. FBS within target this weekend, postprandials for most part at target, 2 elevated but she knows she ate extra carbs NST reactive BP stable, no evidence of preeclampsia. Monitor closely. return as scheduled or prn Neva Ro M.D. documented in this encounter [facility] 08-27-2021 History of Presen t illness Narrative NST SUMMARY PROVIDER ASSESSMENT AND INTERPRETATION Lynn Sanchez is a 36 year old female, , who is at 37w0d with an JAISON of 09/17/2021, by Ultrasound dating method. Indications for NST: AMA and Gestational Diabetes - Insulin Controlled Baseline: 140 Variability: Moderate Accelerations: Present 15 X 15 Decelerations: None Contractions: TOCO: None Interpretation: Category I and Reactive SIGNATURE: Neva Ro MD documented in this encounter [facility] 08-27-2021 Maria Esther Bejarano Co - 08/27/2021 9:34 AM EDT SEQUENTIAL SCREENINGS The [facility] offers sequential screenings for women who are interested in screenings for chromosomal abnormalities and certain defects during a . The sequential screen combines ultrasound and blood tests to determine the risk of chromosomal abnormalities, including Down's Syndrome (Trisomy 21) and Trisomy 18, as well as open neural tube defects including spina bifida. Ultrasound examination is performed between 11 weeks and 13 weeks gestational age. Blood tests are drawn after the ultrasound and again later in the between 15 and 21 weeks gestational age. Please let your physician know if you are interested in this testing. It will require an appointment with our calibration laboratory technician. This is not an ultrasound performed by a physician in our office during a routine visit. SIGNS AND SYMPTOMS OF LABOR 1. Contractions every 10 minutes or more often 2. Clear, pink, or brownish fluid (water) leaking from vagina 3. Feeling that baby is pushing down, pressure 4. Low, dull backache 5. Cramps that feel like a period 6. Cramps with or without diarrhea If you notice any of the above symptoms, contact our office at [phone] and ask to speak with a nurse. After hours, you can call doctors registry at [phone] OR call [facility] at [phone] and ask to have the doctor contact center agent paged. If you consider this an emergency, dial -5 or go to your nearest emergency department. NEED HELP? Are you dealing with a violent or abusive relationship? Are you a victim of rape or sexual assult? Call [facility] ([facility] 24 hour Crisis Hotline: 676.232.3213 or 799-233-3067. MANUAL Your Guide to a Healthy manual is now on-line. Visit [email or web address] ancyGuide to download your free copy documented in this encounter [facility] 08-24-2021 History of Presen t illness Narrative NST SUMMARY PROVIDER ASSESSMENT AND INTERPRETATION Lynn Sanchez is a 36 year old female, , who is at 36w4d with an JAISON of 09/17/2021, by Ultrasound dating method. Indications for NST: AMA and Gestational Diabetes - Insulin Controlled Baseline: 145 Variability: Moderate Accelerations: Present 15 X 15 Decelerations: None Contractions: TOCO: Irregular Interpretation: Category I and Reactive SIGNATURE: Neva Ro MD documented in this encounter [facility] 08-24-2021 Miscellaneous Notes RR- VB No. LOF No. CTXS No. Movement: present. Other c/o: No. Feeling better overall. Diarrhea and nasuea improved. Denies MEDINA or visual changes Medication list reviewed. Physical Exam See Flow Sheet Abd: soft, nontender, gravid Ext: edema: Trace , 2+ DTRs, no clonus A/P 36w4d Estimated Date of Delivery: 09/17/21 kick counts NST reactive GDMA2- bs log reviewed, some high, more than 50% within target. No one BS is consistently elevated so will not increase insulin b/c of risk of low blood sugar. F/u in 1 week or prn. . Neva Ro M.D. documented in this encounter [facility] 08-24-2021 Maria Esther Mcdonald LPN - 08/24/2021 10:44 AM EDT SEQUENTIAL SCREENINGS The [facility] offers sequential screenings for women who are interested in screenings for chromosomal abnormalities and certain defects during a . The sequential screen combines ultrasound and blood tests to determine the risk of chromosomal abnormalities, including Down's Syndrome (Trisomy 21) and Trisomy 18, as well as open neural tube defects including spina bifida. Ultrasound examination is performed between 11 weeks and 13 weeks gestational age. Blood tests are drawn after the ultrasound and again later in the between 15 and 21 weeks gestational age. Please let your physician know if you are interested in this testing. It will require an appointment with our calibration laboratory technician. This is not an ultrasound performed by a physician in our office during a routine visit. SIGNS AND SYMPTOMS OF LABOR 1. Contractions every 10 minutes or more often 2. Clear, pink, or brownish fluid (water) leaking from vagina 3. Feeling that baby is pushing down, pressure 4. Low, dull backache 5. Cramps that feel like a period 6. Cramps with or without diarrhea If you notice any of the above symptoms, contact our office at [phone] and ask to speak with a nurse. After hours, you can call doctors registry at [phone] OR call [facility] at [phone] and ask to have the doctor contact center agent paged. If you consider this an emergency, dial 9-1-3 or go to your nearest emergency department. NEED HELP? Are you dealing with a violent or abusive relationship? Are you a victim of rape or sexual assult? Call [facility] ([place]) 24 hour Crisis Hotline: 502.171.9396 or 490-218-3709. MANUAL Your Guide to a Healthy manual is now on-line. Visit [email or web address] ancyGuide to download your free copy documented in this encounter [facility] 08-21-2021 Miscellaneous Notes Received approval for Lidocaine ointment. Pt notified via [employer] message. Soumya Fraire LPN Electronic PA remains in pending state. Will further watch for approval or denial. Soumya Fraire LPN Electronic PA submitted for Lidocaine Ointment 5%. Will await further response from pt's insurance. Soumya Fraire LPN documented in this encounter [facility] 08-20-2021 History of Presen t illness Narrative NST SUMMARY PROVIDER ASSESSMENT AND INTERPRETATION Lynn Sanchez is a 36 year old female, , who is at 36w0d with an JAISON of 09/17/2021, by Ultrasound dating method. Indications for NST: Diabetes - Insulin Controlled Baseline: 150 Variability: Moderate Accelerations: Present 15 X 15 Decelerations: None Contractions: TOCO: Irregular Interpretation: Reactive SIGNATURE: Wolfgang Boyce APRN.CNM documented in this encounter [facility] 08-20-2021 Miscellaneous Notes DEIDRE-S: Lynn Sanchez is a 36 year old female who presents at 36w0d with JAISON:09/17/2021, by Ultrasound Good FM. Denies headache, visual changes, chest pain, shortness of breath, vaginal bleeding, leakage of fluid, or dysuria. Patient with questions about insulin. Did not start Lispro due to recent GI illness. Taking NPH 30 units at breakfast, 15 units with supper, and 10 units at bedtime. O: See flow sheet Gen: No apparent distress Abd: Gravid, nontender NST reactive BS log for review because patient has questions. FBS 73-89 2hPP 3 elevated 130, 141, 141, 50% elevated. ASSESSMENT/PLAN: 1. 35 weeks gestation of 2. Multigravida of advanced maternal age in third trimester 3. Gestational diabetes mellitus (GDM) requiring insulin 4. High-risk in third trimester P: 1) PTL precautions reviewed and when to call 2) RTO as scheduled with physician 3) Consultation with for insulin management. Ok to continue current regiment and not start Lispro at this time. Will see in 3 days and can adjust at that time if needed. Wolfgang Boyce APRN.CNM documented in this encounter [facility] 08-17-2021 History of Presen t illness Narrative NST SUMMARY PROVIDER ASSESSMENT AND INTERPRETATION Lynn Sanchez is a 36 year old female, , who is at 35w4d with an JAISON of 09/17/2021, by Ultrasound dating method. Indications for NST: AMA Baseline: 140 Variability: Moderate Accelerations: Present 15 X 15 Decelerations: None Contractions: TOCO: Irregular Interpretation: Category I and Reactive SIGNATURE: Neva Ro MD documented in this encounter [facility] 08-16-2021 Miscellaneous Notes RR- VB No. LOF No. CTXS No. Movement: present. Other c/o: Yes: Other: diarrhea. Tried immodium. Went 4-5 times yesterday. Hemorrhoids. Medication list reviewed. Physical Exam See Flow Sheet Gen: ill appearing, no accute distress Abd: soft, nontender, gravid Ext: edema: Trace A/P 35w3d Estimated Date of Delivery: 09/17/21 GDMA2- on insulin. Hasn't started am breakfast insulin b/c hasn't felt well. Hasn't eaten regularly b/c of not feeling well. Stressed importance of this. BS was in 60s yesterday am. Came up after a meal. Diarrhea 3 days. Nausea but no vomiting in over 24 hrs Recommend probiotic. Eat bland, push fluids Wants to be done w/ work. Drives a lot, difficulty getting up stairs b/c of pain. GBS done today NST kick counts trial lidocaine w/ other OTC remedies recommended Neva Ro M.D. documented in this encounter [facility] 08-16-2021 Instructions Renata Mortensen Ma - 08/16/2021 9:46 AM EDT SEQUENTIAL SCREENINGS The [facility] offers sequential screenings for women who are interested in screenings for chromosomal abnormalities and certain defects during a . The sequential screen combines ultrasound and blood tests to determine the risk of chromosomal abnormalities, including Down's Syndrome (Trisomy 21) and Trisomy 18, as well as open neural tube defects including spina bifida. Ultrasound examination is performed between 11 weeks and 13 weeks gestational age. Blood tests are drawn after the ultrasound and again later in the between 15 and 21 weeks gestational age. Please let your physician know if you are interested in this testing. It will require an appointment with our calibration laboratory technician. This is not an ultrasound performed by a physician in our office during a routine visit. SIGNS AND SYMPTOMS OF LABOR 1. Contractions every 10 minutes or more often 2. Clear, pink, or brownish fluid (water) leaking from vagina 3. Feeling that baby is pushing down, pressure 4. Low, dull backache 5. Cramps that feel like a period 6. Cramps with or without diarrhea If you notice any of the above symptoms, contact our office at [phone] and ask to speak with a nurse. After hours, you can call doctors registry at [phone] OR call [facility] at [phone] and ask to have the doctor contact center agent paged. If you consider this an emergency, dial 9-1-1 or go to your nearest emergency department. NEED HELP? Are you dealing with a violent or abusive relationship? Are you a victim of rape or sexual assult? Call [facility] ([place]) 24 hour Crisis Hotline: 606.602.9325 or 933-803-7808. MANUAL Your Guide to a Healthy manual is now on-line. Visit [email or web address] ancyGuide to download your free copy documented in this encounter [facility] 08-14-2021 Miscellaneous Notes Patient given directive. I am glad to hear she is feeling a little better. Have her continue to half her NPH dose until eating a more normal diet. Continuing the lispro for now. She can take immodium to help with the diarrhea. It is important that she stay hydrated. Mac Guzmán MD 35w1d Patient seen in L&D on Friday for suspected gastroenteritis per patient. Calling in to office to give an update. She has not started the fast acting insulin sent on . She took a couple of BS on Friday, but wasn't eating very much. Below are Friday's and today's BS. Eating better, but not able to eat much. Had toast and a diabetic shake for breakfast today. DATE 08/13 08/14 Fasting 70 72 Post Breakfast 85 103 Post Lunch 109 Post Dinner 82 Diarrhea began last night. Multiple episodes. x3 so far today. Happens right after she eats now. Trying to stay hydrated. Drinking water and diet 7-Up. Please advise. Shena Thomas RN documented in this encounter [facility] 08-09-2021 Miscellaneous Notes The following approved medications have been transmitted electronically. Signed Prescriptions Disp Refills insulin 50/50 lispro protamine/lispro units/mL (HUMALOG MIX 50-50 KWIKPEN) 100 unit/mL (50-50) inpn 15 mL 0 Sig: Inject 4 Units subcutaneously daily with breakfast. Authorizing Provider: MAC GUZMÁN Insulin [place], Disposable, (PEN NEEDLE) 32 gauge x 5/32 100 Each 5 Si Each once daily. Authorizing Provider: MAC GUZMÁN Pharmacy Information Pharmacy Address Telephone [facility] [id number] [place] [address] Barbara Lei RN Done Mac Guzmán MD Pharmacy calling and stated that pt has been using insulin in pen form, the insulin ordered today is a vial. Pt is worried about drawing medication up. Can you change order to pen? Soumya Fraire LPN documented in this encounter [facility] 08-09-2021 Miscellaneous Notes KJ - NST only. BS log discussed as sent in [employer] message. A&P: GDMA2 - start lispro 4 units with breakfast. Continue NPH. Patient will discuss work plans with next week Mac Guzmán MD documented in this encounter [facility] 08-09-2021 History of Presen t illness Narrative NST SUMMARY PROVIDER ASSESSMENT AND INTERPRETATION Lynn Sanchez is a 36 year old female, , who is at 34w3d with an JAISON of 09/17/2021, by Ultrasound dating method. Indications for NST: Diabetes - Insulin Controlled (gestational) Baseline: 125 Variability: Moderate Accelerations: Present 15 X 15 Decelerations: None Contractions: TOCO: Irregular Interpretation: Reactive SIGNATURE: Mac Guzmán MD documented in this encounter [facility] 08-09-2021 Maria Esther Bejarano Ma - 08/09/2021 2:12 PM EDT SEQUENTIAL SCREENINGS The [facility] offers sequential screenings for women who are interested in screenings for chromosomal abnormalities and certain defects during a . The sequential screen combines ultrasound and blood tests to determine the risk of chromosomal abnormalities, including Down's Syndrome (Trisomy 21) and Trisomy 18, as well as open neural tube defects including spina bifida. Ultrasound examination is performed between 11 weeks and 13 weeks gestational age. Blood tests are drawn after the ultrasound and again later in the between 15 and 21 weeks gestational age. Please let your physician know if you are interested in this testing. It will require an appointment with our calibration laboratory technician. This is not an ultrasound performed by a physician in our office during a routine visit. SIGNS AND SYMPTOMS OF LABOR 1. Contractions every 10 minutes or more often 2. Clear, pink, or brownish fluid (water) leaking from vagina 3. Feeling that baby is pushing down, pressure 4. Low, dull backache 5. Cramps that feel like a period 6. Cramps with or without diarrhea If you notice any of the above symptoms, contact our office at [phone] and ask to speak with a nurse. After hours, you can call doctors registry at [phone] OR call [facility] at [phone] and ask to have the doctor contact center agent paged. If you consider this an emergency, dial 12-27-1 or go to your nearest emergency department. NEED HELP? Are you dealing with a violent or abusive relationship? Are you a victim of rape or sexual assult? Call [facility] ([place]) 24 hour Crisis Hotline: 293.330.1535 or 806-137-4170. MANUAL Your Guide to a Healthy manual is now on-line. Visit [email or web address] ancyGuide to download your free copy documented in this encounter [facility] 08-03-2021 Miscellaneous Notes Addended by: NEVA RO on: 08/03/2021 10:59 AM Modules accepted: Orders RR_ No VB/LOF. Good FM. No ctxs. Mild edema. Struggling at work. Hard to walk up steps b/c of hip pain. Has to get up and down off the floor w/ kids. Doing better this week at spring break. Not sleeping well. Hard to check blood sugar. Reviewed BS log and fastings elevated. Did not have a lot of postprandials but those she had are within target range. Encouraged to ffollow diet. Desires to continue to work for now though is struggling. F/u weekly for NSTs and reviewed BS log. Start NPH 10 units at night. documented in this encounter [facility] 08-03-2021 Instructions Renata Mortensen Kenny - 08/03/2021 10:02 AM EDT SEQUENTIAL SCREENINGS The [facility] offers sequential screenings for women who are interested in screenings for chromosomal abnormalities and certain defects during a . The sequential screen combines ultrasound and blood tests to determine the risk of chromosomal abnormalities, including Down's Syndrome (Trisomy 21) and Trisomy 18, as well as open neural tube defects including spina bifida. Ultrasound examination is performed between 11 weeks and 13 weeks gestational age. Blood tests are drawn after the ultrasound and again later in the between 15 and 21 weeks gestational age. Please let your physician know if you are interested in this testing. It will require an appointment with our calibration laboratory technician. This is not an ultrasound performed by a physician in our office during a routine visit. SIGNS AND SYMPTOMS OF LABOR 1. Contractions every 10 minutes or more often 2. Clear, pink, or brownish fluid (water) leaking from vagina 3. Feeling that baby is pushing down, pressure 4. Low, dull backache 5. Cramps that feel like a period 6. Cramps with or without diarrhea If you notice any of the above symptoms, contact our office at [phone] and ask to speak with a nurse. After hours, you can call doctors registry at [phone] OR call [facility] at [phone] and ask to have the doctor contact center agent paged. If you consider this an emergency, dial 9--1 or go to your nearest emergency department. NEED HELP? Are you dealing with a violent or abusive relationship? Are you a victim of rape or sexual assult? Call [facility] ([place]) 24 hour Crisis Hotline: 307.255.1857 or 726-531-8926. MANUAL Your Guide to a Healthy manual is now on-line. Visit [email or web address] ancyGuide to download your free copy documented in this encounter [facility] 07-18-2021 Miscellaneous Notes DM- Pt doing well today. Denies Vaginal Bleeding, Leaking fluid, or contractions. Pt reports good movement. RTO 2 weeks. Just started check BS- 120 this morning. Will set up for diabetic teaching. S> D has growth us scheduled. Will schedule Repeat cs to be scheduled with RR. Planning Mirena at PP. Pt requesting off work- reviewed that at this time I do not have medical indication for this. Reviewed that she needs to work on diet which will help to get BS lowered which in return would likely help with how she is feeling during the day. Will need NSTs weekly after growth us. RTO 2 wks. Guerita Osorio MD documented in this encounter [facility] 07-18-2021 Instructions Shandra Rich Ma - 07/18/2021 11:07 AM EDT SEQUENTIAL SCREENINGS The [facility] offers sequential screenings for women who are interested in screenings for chromosomal abnormalities and certain defects during a . The sequential screen combines ultrasound and blood tests to determine the risk of chromosomal abnormalities, including Down's Syndrome (Trisomy 21) and Trisomy 18, as well as open neural tube defects including spina bifida. Ultrasound examination is performed between 11 weeks and 13 weeks gestational age. Blood tests are drawn after the ultrasound and again later in the between 15 and 21 weeks gestational age. Please let your physician know if you are interested in this testing. It will require an appointment with our calibration laboratory technician. This is not an ultrasound performed by a physician in our office during a routine visit. SIGNS AND SYMPTOMS OF LABOR 1. Contractions every 10 minutes or more often 2. Clear, pink, or brownish fluid (water) leaking from vagina 3. Feeling that baby is pushing down, pressure 4. Low, dull backache 5. Cramps that feel like a period 6. Cramps with or without diarrhea If you notice any of the above symptoms, contact our office at [phone] and ask to speak with a nurse. After hours, you can call doctors registry at [phone] OR call [facility] at [phone] and ask to have the doctor contact center agent paged. If you consider this an emergency, dial 9-1-1 or go to your nearest emergency department. NEED HELP? Are you dealing with a violent or abusive relationship? Are you a victim of rape or sexual assult? Call [facility] ([place]) 24 hour Crisis Hotline: 767.921.2383 or 973-890-7187. MANUAL Your Guide to a Healthy manual is now on-line. Visit [email or web address] [email or web address] to download your free copy documented in this encounter [facility] 07-18-2021 Miscellaneous Notes Patient scheduled with Dr [email or web address] Please see pt's [email or web address] message and advise. Soumya Fraire LPN documented in this encounter [facility] 07-17-2021 Miscellaneous Notes [email or web address] message sent to patient. Barbara Lei RN Rx sent. Thanks. Neva Ro MD Patient has a freestyle glucometer. Is requesting testing strips and lancets. 31w0d Patient saw 3 hour glucose test results. She previously had GDM in last . Thinks that she does have her glucometer still. She will call office back to let us know what brand of test strips she will need with it. Declined diabetic education and program attendant for now. She had that last too. Advised if sugars are not controlled provider may request she schedule those again and patient agreed. Patient aware to check her blood sugars 4 times a day and bring log with her to each appointment. Next visit with DM 07/20/21. Await patients return call. Selena Rai RN documented in this encounter [facility] documented as of this encounter (statuses as of 09/17/2021) [facility] History of Past illness Narrative* Problem Noted Date Resolved Date Anemia during in third trimester 07/0609/17/2021 Antepartum multigravida of advanced maternal age 1002/05/2021 09/17/2021 Overview: 02/05/2021atient is 35 years old. Advanced Maternal age discussed. Invasive and noninvasive testing options discussed. Patient declines further information on amniocentesis and CVS. Patient desires nuchal ultrasound and materniti 21 testing.TKRN History of cholestasis during 02/06/2009/17/2021 Overview: prior Endometriosis of right ovary 09/21/2020 History of gestational diabetes 04/16/2017 07/17/2021 Overview: 02/05/2021 Patient has a history of gestational diabetes with her last . She did use insulin towards the end of her . TKRN Diet controlled gestational diabetes mellitus (GDM) in third trimester 12/20/2016 09/17/2021 Overview: December 20, 2016 Has GDM. Needs supplies and teaching ERIKA. Neva Ro MD Umbilical hernia without obstruction or gangrene 10/07/2016 05/14/2019 Abnormal antibody titer 09/17/2016 04/16/20 Overview: September 17, 2016 See blood bank note. Paternal sample needs anaylized. Neva Ro MD September 24, 2016 Unable to do maternal crossmatch w/ 's blood due to ABO incompatability. Neva Ro MD associated with us e of clomiphene, currently in third trimester 08/01/2016 04/16/2017 Overview: 08/01/2016This is a Clomid . Patient and have been attempting for 1 year. TKRN with history of section, ante 08/01/2016 09/17/2021 Overview: 02/05/2021t had 2 previous C sections. She would like to discuss a possible with Dr. Ro at her new OB appointment. EMMIs on and ordered. I asked patient to please attempt to watch these prior to her new OB appointment with Dr. Ro. TKRN History of macrosomia in inf ant in prior , currently 08/01/2016 09/17/2021 Overview: 02/05/2021atient's first child's weight was 9 pounds 13 ounces, second child 8 pounds 10 ounces. TKRN History of hypertension 08/01/2016 09/18/19 22 Overview: 02/05/2021atient has a history of hypertension diagnosed January [address] Willian Marquez. She states she has been off medication since April 2016. TKRN Family history of spina bifida 08/01/2016 0 09/17/2021 Overview: 02/05/2021 Patient's 4th cousin with spina bifida.TKRN Patient requested diagnostic testing 08/01/2016 09/17/2021 Overview: 02/05/2021 patient requests nuchal ultrasound and [id number] testing. Patient declines genetic carrier screening testing.Vickie De Leon RN High-risk supervision 10/08/2013 01/21/2014 Overview: 12/06/13 Copy of records from 2007 faxed to L&D and sent to [facility]. Cholestasis of 10/06/2013 014 Overview: mfm consult, ursodiol 500 mg BID. Increased testing will discuss with MFM. Emely Olivia MD Pruritus of 09/28/2013 01/21/2014 Overview: 09/28: w/u for cholestasis Abnormal glucose complicating 09/09/19 14 07/17/2021 Overview: July 06, 2021 needs 3 hr Supervision of normal first 05/06/2013 10/08/2013 Nausea and vomiting during 05/06/2013 04/16/2017 Overview: 08/01/2016Patient is complaining of nausea and vomiting in . Advised patient to call/come in if she is unable to keep any food or fluids down in a 24-hour period.TKRN Quit smoking 04/06/2013 05/14/2019 Overview: 08/01/2016Pt recently quit smoking March 30. Discussed risks of smoking during and advised pt to continue not smoking.TKRM History of depression 04/06/2013 09/17/2021 Overview: 02/05/2021 Pt has a history of depression diagnosed in 2008 treated by a psychiatrist in [place]. . She has been off medication since 2013. She states she did have depression after the of her first child discussed increased risks of depression during and and importance of reporting the development or worsening of symptoms should they occur.Pt denies ever having any suicidal thoughts or tendencies or thoughts of hurting others. TKRN Family history of congenital heart defect 201209/17/2021 Overview: 04/06/2013 The father of the baby's brother born with an undiagnosed heart defect and of sudden cardiac arrest at age 17. Patient's grandmother born with heart valve defect. TKRN documented as of this encounter (statuses as of 10/22/2021) [facility]03-11-2022 History of Past illness Narrative* Problem Noted Date Resolved Date Anemia during in third trimester 07/0609/17/2021 Antepartum multigravida of advanced maternal age 1002/05/2021 09/17/2021 Overview: 02/05/2021atient is 35 years old. Advanced Maternal age discussed. Invasive and noninvasive testing options discussed. Patient declines further information on amniocentesis and [facility]. Patient desires nuchal ultrasound and materniti 21 testing.TKRN History of cholestasis during 02/06/2009/17/2021 Overview: prior Endometriosis of right ovary 09/21/2020 History of gestational diabetes 04/16/2017 07/17/2021 Overview: 02/05/2021 Patient has a history of gestational diabetes with her last . She did use insulin towards the end of her . TKRN Diet controlled gestational diabetes mellitus (GDM) in third trimester 12/20/2016 09/17/2021 Overview: December 20, 2016 Has GDM. Needs supplies and teaching ERIKA. Neva Ro MD Umbilical hernia without obstruction or gangrene 10/07/2016 05/14/2019 Abnormal antibody titer 09/17/2016 04/16/20 Overview: September 17, 2016 See blood bank note. Paternal sample needs anaylized. Neva Ro MD September 24, 2016 Unable to do maternal crossmatch w/ 's blood due to ABO incompatability. Neva Ro MD associated with us e of clomiphene, currently in third trimester 08/01/2016 04/16/2017 Overview: 08/01/2016This is a Clomid . Patient and have been attempting for 1 year. TKRN with history of section, ante 08/01/2016 09/17/2021 Overview: 02/05/2021t had 2 previous C sections. She would like to discuss a possible with Dr. Ro at her new OB appointment. EMMIs on and ordered. I asked patient to please attempt to watch these prior to her new OB appointment with Dr. Ro. TKRN History of macrosomia in inf ant in prior , currently 08/01/2016 09/17/2021 Overview: 02/05/2021atient's first child's weight was 9 pounds 13 ounces, second child 8 pounds 10 ounces. TKRN History of hypertension 08/01/2016 09/18/19 22 Overview: 02/05/2021atient has a history of hypertension diagnosed January [address] Willian Marquez. She states she has been off medication since April 2016. TKRN Family history of spina bifida 08/01/2016 0 09/17/2021 Overview: 02/05/2021 Patient's 4th cousin with spina bifida.TKRN Patient requested diagnostic testing 08/01/2016 09/17/2021 Overview: 02/05/2021 patient requests nuchal ultrasound and [id number] testing. Patient declines genetic carrier screening testing.Vickie De Leon RN High-risk supervision 10/08/2013 01/21/2014 Overview: 12/06/13 Copy of records from 2007 faxed to L&D and [place] [facility] Cholestasis of 10/06/2013 014 Overview: mfm consult, ursodiol 500 mg BID. Increased testing will discuss with MFM. Emely Olivia MD Pruritus of 09/28/2013 01/21/2014 Overview: /3: w/u for cholestasis Abnormal glucose complicating 09/09/19 14 07/17/2021 Overview: July 06, 2021 needs 3 hr Supervision of normal first 05/06/2013 10/08/2013 Nausea and vomiting during 05/06/2013 04/16/2017 Overview: 08/01/2016Patient is complaining of nausea and vomiting in . Advised patient to call/come in if she is unable to keep any food or fluids down in a 24-hour period.TKRN Quit smoking 04/06/2013 05/14/2019 Overview: 08/01/2016Pt recently quit smoking March 30. Discussed risks of smoking during and advised pt to continue not smoking.TKRM History of depression 04/06/2013 09/17/2021 Overview: 02/05/2021 Pt has a history of depression diagnosed in 2008 treated by a psychiatrist in [place]. . She has been off medication since 2013. She states she did have depression after the of her first child discussed increased risks of depression during and and importance of reporting the development or worsening of symptoms should they occur.Pt denies ever having any suicidal thoughts or tendencies or thoughts of hurting others. TKRN Family history of congenital heart defect 201209/17/2021 Overview: 04/06/2013 The father of the baby's brother born with an undiagnosed heart defect and of sudden cardiac arrest at age 17. Patient's grandmother born with heart valve defect. TKRN documented as of this encounter (statuses as of 12/12/2021) [facility]03-11-2022 History of Past illness Narrative* Problem Noted Date Resolved Date Anemia during in third trimester 07/0609/17/2021 Antepartum multigravida of advanced maternal age 1002/05/2021 09/17/2021 Overview: 02/05/2021atient is 35 years old. Advanced Maternal age discussed. Invasive and noninvasive testing options discussed. Patient declines further information on amniocentesis and [facility]. Patient desires nuchal ultrasound and materniti 21 testing.TKRN Tobacco use during 02/05/2021 Overview: 02/05/2021t smokes 3 cigarettes a day down from 1 pack a day. Discussed risks of smoking during . Advised pt to quit.TKRN History of cholestasis during 02/06/2009/17/2021 Overview: prior Endometriosis of right ovary 09/21/2020 History of gestational diabetes 04/16/2017 07/17/2021 Overview: 02/05/2021 Patient has a history of gestational diabetes with her last . She did use insulin towards the end of her . TKRN Diet controlled gestational diabetes mellitus (GDM) in third trimester 12/20/2016 09/17/2021 Overview: December 20, 2016 Has GDM. Needs supplies and teaching ERIKA. Nvea Ro MD Umbilical hernia without obstruction or gangrene 10/07/2016 05/14/2019 Abnormal antibody titer 09/17/2016 04/16/20 Overview: September 17, 2016 See blood bank note. Paternal sample needs anaylized. Neva Ro MD September 24, 2016 Unable to do maternal crossmatch w/ 's blood due to ABO incompatability. Neva Ro MD associated with us e of clomiphene, currently in third trimester 08/01/2016 04/16/2017 Overview: 08/01/2016This is a Clomid . Patient and have been attempting for 1 year. TKRN with history of section, ante 08/01/2016 09/17/2021 Overview: 02/05/2021t had 2 previous C sections. She would like to discuss a possible with Dr. Ro at her new OB appointment. EMMIs on and ordered. I asked patient to please attempt to watch these prior to her new OB appointment with Dr. Ro. TKRN History of macrosomia in inf ant in prior , currently 08/01/2016 09/17/2021 Overview: 02/05/2021atient's first child's weight was 9 pounds 13 ounces, second child 8 pounds 10 ounces. TKRN History of hypertension 08/01/2016 09/18/19 22 Overview: 02/05/2021atient has a history of hypertension diagnosed January [address] Willian Marquez. She states she has been off medication since April 2016. TKRN Family history of spina bifida 08/01/2016 0 09/17/2021 Overview: 02/05/2021 Patient's 4th cousin with spina bifida.TKRN Patient requested diagnostic testing 08/01/2016 09/17/2021 Overview: 02/05/2021 patient requests nuchal ultrasound and [id number] testing. Patient declines genetic carrier screening testing.Vickie De Leon RN High-risk supervision 10/08/2013 01/21/2014 Overview: 12/06/13 Copy of records from 2007 faxed to L&D and sent [place] [facility] [place] Cholestasis of 10/06/2013 014 Overview: mfm consult, ursodiol 500 mg BID. Increased testing will discuss with MFM. Emely Olivia MD Pruritus of 09/28/2013 01/21/2014 Overview: 09/28: w/u for cholestasis Abnormal glucose complicating 09/09/19 14 07/17/2021 Overview: July 06, 2021 needs 3 hr Supervision of normal first 05/06/2013 10/08/2013 Nausea and vomiting during 05/06/2013 04/16/2017 Overview: 08/01/2016Patient is complaining of nausea and vomiting in . Advised patient to call/come in if she is unable to keep any food or fluids down in a 24-hour period.TKRN Quit smoking 04/06/2013 05/14/2019 Overview: 08/01/2016Pt recently quit smoking March 30. Discussed risks of smoking during and advised pt to continue not smoking.TKRM History of depression 04/06/2013 09/17/2021 Overview: 02/05/2021 Pt has a history of depression diagnosed in 2008 treated by a psychiatrist in [place]. . She has been off medication since 2013. She states she did have depression after the of her first child discussed increased risks of depression during and and importance of reporting the development or worsening of symptoms should they occur.Pt denies ever having any suicidal thoughts or tendencies or thoughts of hurting others. TKRN Family history of congenital heart defect 201209/17/2021 Overview: 04/06/2013 The father of the baby's brother born with an undiagnosed heart defect and of sudden cardiac arrest at age 17. Patient's grandmother born with heart valve defect. TKRN documented as of this encounter (statuses as of 02/19/2022) [facility]03-11-2022 History of Past illness Narrative* Problem Noted Date Resolved Date Anemia during in third trimester 07/0609/17/2021 Antepartum multigravida of advanced maternal age 1002/05/2021 09/17/2021 Overview: 02/05/2021atient is 35 years old. Advanced Maternal age discussed. Invasive and noninvasive testing options discussed. Patient declines further information on amniocentesis and [facility]. Patient desires nuchal ultrasound and materniti 21 testing.TKRN Tobacco use during 02/05/2021 Overview: 02/05/2021t smokes 3 cigarettes a day down from 1 pack a day. Discussed risks of smoking during . Advised pt to quit.TKRN History of cholestasis during 02/06/2009/17/2021 Overview: prior Endometriosis of right ovary 09/21/2020 History of gestational diabetes 04/16/2017 07/17/2021 Overview: 02/05/2021 Patient has a history of gestational diabetes with her last . She did use insulin towards the end of her . TKRN Diet controlled gestational diabetes mellitus (GDM) in third trimester 12/20/2016 09/17/2021 Overview: December 20, 2016 Has GDM. Needs supplies and teaching ERIKA. Neva Ro MD Umbilical hernia without obstruction or gangrene 10/07/2016 05/14/2019 Abnormal antibody titer 09/17/2016 04/16/20 Overview: September 17, 2016 See blood bank note. Paternal sample needs anaylized. Neva Ro MD September 24, 2016 Unable to do maternal crossmatch w/ 's blood due to ABO incompatability. Neva Ro MD associated with us e of clomiphene, currently in third trimester 08/01/2016 04/16/2017 Overview: 08/01/2016This is a Clomid . Patient and have been attempting for 1 year. TKRN with history of section, ante 08/01/2016 09/17/2021 Overview: 02/05/2021t had 2 previous C sections. She would like to discuss a possible with Dr. Ro at her new OB appointment. EMMIs on and ordered. I asked patient to please attempt to watch these prior to her new OB appointment with Dr. Ro. TKRN History of macrosomia in inf ant in prior , currently 08/01/2016 09/17/2021 Overview: 02/05/2021atient's first child's weight was 9 pounds 13 ounces, second child 8 pounds 10 ounces. TKRN History of hypertension 08/01/2016 09/18/19 Overview: 02/05/2021atient has a history of hypertension diagnosed January [address] Willian Marquez. She states she has been off medication since April 2016. TKRN Family history of spina bifida 08/01/2016 0 09/17/2021 Overview: 02/05/2021 Patient's 4th cousin with spina bifida.TKRN Patient requested diagnostic testing 08/01/2016 09/17/2021 Overview: 02/05/2021 patient requests nuchal ultrasound and [id number] testing. Patient declines genetic carrier screening testing.Vickie De Leon RN High-risk supervision 10/08/2013 01/21/2014 Overview: 12/06/13 Copy of records from 2007 faxed to L&D and sent [place] [facility] [place] Cholestasis of 10/06/2013 014 Overview: mfm consult, ursodiol 500 mg BID. Increased testing will discuss with MFM. Emely Olivia MD Pruritus of 09/28/2013 01/21/2014 Overview: 09/28: w/u for cholestasis Abnormal glucose complicating 09/09/19 14 07/17/2021 Overview: July 06, 2021 needs 3 hr Supervision of normal first 05/06/2013 10/08/2013 Nausea and vomiting during 05/06/2013 04/16/2017 Overview: 08/01/2016Patient is complaining of nausea and vomiting in . Advised patient to call/come in if she is unable to keep any food or fluids down in a 24-hour period.TKRN Quit smoking 04/06/2013 05/14/2019 Overview: 08/01/2016Pt recently quit smoking March 30. Discussed risks of smoking during and advised pt to continue not smoking.TKRM History of depression 04/06/2013 09/17/2021 Overview: 02/05/2021 Pt has a history of depression diagnosed in 2008 treated by a psychiatrist in [place]. . She has been off medication since 2013. She states she did have depression after the of her first child discussed increased risks of depression during and and importance of reporting the development or worsening of symptoms should they occur.Pt denies ever having any suicidal thoughts or tendencies or thoughts of hurting others. TKRN Family history of congenital heart defect 201209/17/2021 Overview: 04/06/2013 The father of the baby's brother born with an undiagnosed heart defect and of sudden cardiac arrest at age 17. Patient's grandmother born with heart valve defect. TKRN documented as of this encounter (statuses as of 03/01/2022) [facility]03-[facility] History of Past illness Narrative* Problem Noted Date Resolved Date Anemia during in third trimester 07/0609/17/2021 Antepartum multigravida of advanced maternal age 1002/05/2021 09/17/2021 Overview: 02/05/2021atient is 35 years old. Advanced Maternal age discussed. Invasive and noninvasive testing options discussed. Patient declines further information on amniocentesis and [facility]. Patient desires nuchal ultrasound and materniti 21 testing.TKRN Tobacco use during 02/05/2021 Overview: 02/05/2021t smokes 3 cigarettes a day down from 1 pack a day. Discussed risks of smoking during . Advised pt to quit.TKRN History of cholestasis during 02/06/2009/17/2021 Overview: prior Endometriosis of right ovary 09/21/2020 History of gestational diabetes 04/16/2017 07/17/2021 Overview: 02/05/2021 Patient has a history of gestational diabetes with her last . She did use insulin towards the end of her . TKRN Diet controlled gestational diabetes mellitus (GDM) in third trimester 12/20/2016 09/17/2021 Overview: December 20, 2016 Has GDM. Needs supplies and teaching ERIKA. Neva Ro MD Umbilical hernia without obstruction or gangrene 10/07/2016 05/14/2019 Abnormal antibody titer 09/17/2016 04/16/20 Overview: September 17, 2016 See blood bank note. Paternal sample needs anaylized. Neva Ro MD September 24, 2016 Unable to do maternal crossmatch w/ 's blood due to ABO incompatability. Neva Ro MD associated with us e of clomiphene, currently in third trimester 08/01/2016 04/16/2017 Overview: 08/01/2016This is a Clomid . Patient and have been attempting for 1 year. TKRN with history of section, ante 08/01/2016 09/17/2021 Overview: 02/05/2021t had 2 previous C sections. She would like to discuss a possible with Dr. Ro at her new OB appointment. EMMIs on and ordered. I asked patient to please attempt to watch these prior to her new OB appointment with Dr. Ro. TKRN History of macrosomia in inf ant in prior , currently 08/01/2016 09/17/2021 Overview: 02/05/2021atient's first child's weight was 9 pounds 13 ounces, second child 8 pounds 10 ounces. TKRN History of hypertension 08/01/2016 09/18/19 Overview: 02/05/2021atient has a history of hypertension diagnosed January [address] Willian Marquez. She states she has been off medication since April 2016. TKRN Family history of spina bifida 08/01/2016 0 09/17/2021 Overview: 02/05/2021 Patient's 4th cousin with spina bifida.TKRN Patient requested diagnostic testing 08/01/2016 09/17/2021 Overview: 02/05/2021 patient requests nuchal ultrasound and [id number] testing. Patient declines genetic carrier screening testing.Vickie De Leon RN High-risk supervision 10/08/2013 01/21/2014 Overview: 12/06/13 Copy of records from 2007 faxed to L&D and sent [facility] [place] Cholestasis of 10/06/2013 014 Overview: mfm consult, ursodiol 500 mg BID. Increased testing will discuss with MFM. Emely Olivia MD Pruritus of 09/28/2013 01/21/2014 Overview: 09/28: w/u for cholestasis Abnormal glucose complicating 09/09/19 14 07/17/2021 Overview: July 06, 2021 needs 3 hr Supervision of normal first 05/06/2013 10/08/2013 Nausea and vomiting during 05/06/2013 04/16/2017 Overview: 08/01/2016Patient is complaining of nausea and vomiting in . Advised patient to call/come in if she is unable to keep any food or fluids down in a 24-hour period.TKRN Quit smoking 04/06/2013 05/14/2019 Overview: 08/01/2016Pt recently quit smoking March 30. Discussed risks of smoking during and advised pt to continue not smoking.TKRM History of depression 04/06/2013 09/17/2021 Overview: 02/05/2021 Pt has a history of depression diagnosed in 2008 treated by a psychiatrist in [place]. . She has been off medication since 2013. She states she did have depression after the of her first child discussed increased risks of depression during and and importance of reporting the development or worsening of symptoms should they occur.Pt denies ever having any suicidal thoughts or tendencies or thoughts of hurting others. TKRN Family history of congenital heart defect 201209/17/2021 Overview: 04/06/2013 The father of the baby's brother born with an undiagnosed heart defect and of sudden cardiac arrest at age 17. Patient's grandmother born with heart valve defect. TKRN documented as of this encounter (statuses as of 07/04/2022) [facility]03[facility] History of Past illness Narrative* Problem Noted Date Resolved Date Anemia during in third trimester 07/0609/17/2021 Antepartum multigravida of advanced maternal age 1002/05/2021 09/17/2021 Overview: 02/05/2021atient is 35 years old. Advanced Maternal age discussed. Invasive and noninvasive testing options discussed. Patient declines further information on amniocentesis and [facility]. Patient desires nuchal ultrasound and materniti 21 testing.TKRN Tobacco use during 02/05/2021 Overview: 02/05/2021t smokes 3 cigarettes a day down from 1 pack a day. Discussed risks of smoking during . Advised pt to quit.TKRN History of cholestasis during 02/06/2009/17/2021 Overview: prior Endometriosis of right ovary 09/21/2020 History of gestational diabetes 04/16/2017 07/17/2021 Overview: 02/05/2021 Patient has a history of gestational diabetes with her last . She did use insulin towards the end of her . TKRN Diet controlled gestational diabetes mellitus (GDM) in third trimester 12/20/2016 09/17/2021 Overview: December 20, 2016 Has GDM. Needs supplies and teaching ERIKA. Neva Ro MD Umbilical hernia without obstruction or gangrene 10/07/2016 05/14/2019 Abnormal antibody titer 09/17/2016 04/16/20 17 Overview: September 17, 2016 See blood bank note. Paternal sample needs anaylized. Neva Ro MD September 24, 2016 Unable to do maternal crossmatch w/ 's blood due to ABO incompatability. Neva Ro MD associated with us e of clomiphene, currently in third trimester 08/01/2016 04/16/2017 Overview: 08/01/2016This is a Clomid . Patient and have been attempting for 1 year. TKRN with history of section, ante 08/01/2016 09/17/2021 Overview: 02/05/2021t had 2 previous C sections. She would like to discuss a possible with Dr. Ro at her new OB appointment. EMMIs on and ordered. I asked patient to please attempt to watch these prior to her new OB appointment with Dr. Ro. TKRN History of macrosomia in inf ant in prior , currently 08/01/2016 09/17/2021 Overview: 02/05/2021atient's first child's weight was 9 pounds 13 ounces, second child 8 pounds 10 ounces. TKRN History of hypertension 08/01/2016 09/18/19 22 Overview: 02/05/2021atient has a history of hypertension diagnosed January [address] Willian Marquez. She states she has been off medication since April 2016. TKRN Family history of spina bifida 08/01/2016 0 09/17/2021 Overview: 02/05/2021 Patient's 4th cousin with spina bifida.TKRN Patient requested diagnostic testing 08/01/2016 09/17/2021 Overview: 02/05/2021 patient requests nuchal ultrasound and [id number] testing. Patient declines genetic carrier screening testing.Vickie De Leon RN High-risk supervision 10/08/2013 01/21/2014 Overview: 12/06/13 Copy of records from 2007 faxed to [facility]&D and sent to [facility]. Cholestasis of 10/06/2013 014 Overview: mfm consult, ursodiol 500 mg BID. Increased testing will discuss with MFM. Emely Olivia MD Pruritus of 09/28/2013 01/21/2014 Overview: 09/28: w/u for cholestasis Abnormal glucose complicating 09/09/19 14 07/17/2021 Overview: July 06, 2021 needs 3 hr Supervision of normal first 05/06/2013 10/08/2013 Nausea and vomiting during 05/06/2013 04/16/2017 Overview: 08/01/2016Patient is complaining of nausea and vomiting in . Advised patient to call/come in if she is unable to keep any food or fluids down in a 24-hour period.TKRN Quit smoking 04/06/2013 05/14/2019 Overview: 08/01/2016Pt recently quit smoking March 30. Discussed risks of smoking during and advised pt to continue not smoking.TKRM History of depression 04/06/2013 09/17/2021 Overview: 02/05/2021 Pt has a history of depression diagnosed in 2008 treated by a psychiatrist in [place]. . She has been off medication since 2013. She states she did have depression after the of her first child discussed increased risks of depression during and and importance of reporting the development or worsening of symptoms should they occur.Pt denies ever having any suicidal thoughts or tendencies or thoughts of hurting others. TKRN Family history of congenital heart defect 201209/17/2021 Overview: 04/06/2013 The father of the baby's brother born with an undiagnosed heart defect and of sudden cardiac arrest at age 17. Patient's grandmother born with heart valve defect. TKRN documented as of this encounter (statuses as of 07/11/2022) [facility]03-11-2022 History of Past illness Narrative* Problem Noted Date Resolved Date Anemia during in third trimester 07/0609/17/2021 Antepartum multigravida of advanced maternal age 1002/05/2021 09/17/2021 Overview: 02/05/2021atient is 35 years old. Advanced Maternal age discussed. Invasive and noninvasive testing options discussed. Patient declines further information on amniocentesis and [facility]. Patient desires nuchal ultrasound and materniti 21 testing.TKRN Tobacco use during 02/05/2021 Overview: 02/05/2021t smokes 3 cigarettes a day down from 1 pack a day. Discussed risks of smoking during . Advised pt to quit.TKRN History of cholestasis during 02/06/2009/17/2021 Overview: prior Endometriosis of right ovary 09/21/2020 History of gestational diabetes 04/16/2017 07/17/2021 Overview: 02/05/2021 Patient has a history of gestational diabetes with her last . She did use insulin towards the end of her . TKRN Diet controlled gestational diabetes mellitus (GDM) in third trimester 12/20/2016 09/17/2021 Overview: December 20, 2016 Has GDM. Needs supplies and teaching ERIKA. Neva Ro MD Umbilical hernia without obstruction or gangrene 10/07/2016 05/14/2019 Abnormal antibody titer 09/17/2016 04/16/20 Overview: September 17, 2016 See blood bank note. Paternal sample needs anaylized. Neva Ro MD September 24, 2016 Unable to do maternal crossmatch w/ 's blood due to ABO incompatability. Neva Ro MD associated with us e of clomiphene, currently in third trimester 08/01/2016 04/16/2017 Overview: 08/01/2016This is a Clomid . Patient and have been attempting for 1 year. TKRN with history of section, ante 08/01/2016 09/17/2021 Overview: 02/05/2021t had 2 previous C sections. She would like to discuss a possible with Dr. Ro at her new OB appointment. EMMIs on and ordered. I asked patient to please attempt to watch these prior to her new OB appointment with Dr. Ro. TKRN History of macrosomia in inf ant in prior , currently 08/01/2016 09/17/2021 Overview: 02/05/2021atient's first child's weight was 9 pounds 13 ounces, second child 8 pounds 10 ounces. TKRN History of hypertension 08/01/2016 09/18/19 Overview: 02/05/2021atient has a history of hypertension diagnosed January [address] Willian Marquez. She states she has been off medication since April 2016. TKRN Family history of spina bifida 08/01/2016 0 09/17/2021 Overview: 02/05/2021 Patient's 4th cousin with spina bifida.TKRN Patient requested diagnostic testing 08/01/2016 09/17/2021 Overview: 02/05/2021 patient requests nuchal ultrasound and testing. Patient declines genetic carrier screening testing.Vickie De Leon RN High-risk supervision 10/08/2013 01/21/2014 Overview: 12/06/13 Copy of records from 2007 faxed to L&D and sent to [facility]. Cholestasis of 10/06/2013 014 Overview: mfm consult, ursodiol 500 mg BID. Increased testing will discuss with MFM. Emely Olivia MD Pruritus of 09/28/2013 01/21/2014 Overview: 09/28: w/u for cholestasis Abnormal glucose complicating 09/09/19 14 07/17/2021 Overview: July 06, 2021 needs 3 hr Supervision of normal first 05/06/2013 10/08/2013 Nausea and vomiting during 05/06/2013 04/16/2017 Overview: 08/01/2016Patient is complaining of nausea and vomiting in . Advised patient to call/come in if she is unable to keep any food or fluids down in a 24-hour period.TKRN Quit smoking 04/06/2013 05/14/2019 Overview: 08/01/2016Pt recently quit smoking March 30. Discussed risks of smoking during and advised pt to continue not smoking.TKRM History of depression 04/06/2013 09/17/2021 Overview: 02/05/2021 Pt has a history of depression diagnosed in 2008 treated by a psychiatrist in [place]. . She has been off medication since 2013. She states she did have depression after the of her first child discussed increased risks of depression during and and importance of reporting the development or worsening of symptoms should they occur.Pt denies ever having any suicidal thoughts or tendencies or thoughts of hurting others. TKRN Family history of congenital heart defect 201209/17/2021 Overview: 04/06/2013 The father of the baby's brother born with an undiagnosed heart defect and of sudden cardiac arrest at age 17. Patient's grandmother born with heart valve defect. TKRN documented as of this encounter (statuses as of 07/12/2022) [facility]03-11-2022 History of Past illness Narrative* Problem Noted Date Resolved Date Anemia during in third trimester 07/0609/17/2021 Antepartum multigravida of advanced maternal age 1002/05/2021 09/17/2021 Overview: 02/05/2021atient is 35 years old. Advanced Maternal age discussed. Invasive and noninvasive testing options discussed. Patient declines further information on amniocentesis and [facility]. Patient desires nuchal ultrasound and materniti 21 testing.TKRN Tobacco use during 02/05/2021 Overview: 02/05/2021t smokes 3 cigarettes a day down from 1 pack a day. Discussed risks of smoking during . Advised pt to quit.TKRN History of cholestasis during 02/06/2009/17/2021 Overview: prior Endometriosis of right ovary 09/21/2020 History of gestational diabetes 04/16/2017 07/17/2021 Overview: 02/05/2021 Patient has a history of gestational diabetes with her last . She did use insulin towards the end of her . TKRN Diet controlled gestational diabetes mellitus (GDM) in third trimester 12/20/2016 09/17/2021 Overview: December 20, 2016 Has GDM. Needs supplies and teaching ERIKA. Neva Ro MD Umbilical hernia without obstruction or gangrene 10/07/2016 05/14/2019 Abnormal antibody titer 09/17/2016 04/16/20 Overview: September 17, 2016 See blood bank note. Paternal sample needs anaylized. Neva Ro MD September 24, 2016 Unable to do maternal crossmatch w/ 's blood due to ABO incompatability. Neva Ro MD associated with us e of clomiphene, currently in third trimester 08/01/2016 04/16/2017 Overview: 08/01/2016This is a Clomid . Patient and have been attempting for 1 year. TKRN with history of section, ante 08/01/2016 09/17/2021 Overview: 02/05/2021t had 2 previous C sections. She would like to discuss a possible with Dr. Ro at her new OB appointment. EMMIs on and ordered. I asked patient to please attempt to watch these prior to her new OB appointment with Dr. Ro. TKRN History of macrosomia in inf ant in prior , currently 08/01/2016 09/17/2021 Overview: 02/05/2021atient's first child's weight was 9 pounds 13 ounces, second child 8 pounds 10 ounces. TKRN History of hypertension 08/01/2016 09/18/19 22 Overview: 02/05/2021atient has a history of hypertension diagnosed January [address] Willian Marquez. She states she has been off medication since April 2016. TKRN Family history of spina bifida 08/01/2016 0 09/17/2021 Overview: 02/05/2021 Patient's 4th cousin with spina bifida.TKRN Patient requested diagnostic testing 08/01/2016 09/17/2021 Overview: 02/05/2021 patient requests nuchal ultrasound and [id number] testing. Patient declines genetic carrier screening testing.Vickie De Leon RN High-risk supervision 10/08/2013 01/21/2014 Overview: 12/06/13 Copy of records from 2007 faxed to L&D and [place] [facility] [place] Cholestasis of 10/06/2013 014 Overview: mfm consult, ursodiol 500 mg BID. Increased testing will discuss with MFM. Emely Olivia MD Pruritus of 09/28/2013 01/21/2014 Overview: 09/28: w/u for cholestasis Abnormal glucose complicating 09/09/19 14 07/17/2021 Overview: July 06, 2021 needs 3 hr Supervision of normal first 05/06/2013 10/08/2013 Nausea and vomiting during 05/06/2013 04/16/2017 Overview: 08/01/2016Patient is complaining of nausea and vomiting in . Advised patient to call/come in if she is unable to keep any food or fluids down in a 24-hour period.TKRN Quit smoking 04/06/2013 05/14/2019 Overview: 08/01/2016Pt recently quit smoking March 30. Discussed risks of smoking during and advised pt to continue not smoking.TKRM History of depression 04/06/2013 09/17/2021 Overview: 02/05/2021 Pt has a history of depression diagnosed in 2008 treated by a psychiatrist in [place]. . She has been off medication since 2013. She states she did have depression after the of her first child discussed increased risks of depression during and and importance of reporting the development or worsening of symptoms should they occur.Pt denies ever having any suicidal thoughts or tendencies or thoughts of hurting others. TKRN Family history of congenital heart defect 201209/17/2021 Overview: 04/06/2013 The father of the baby's brother born with an undiagnosed heart defect and of sudden cardiac arrest at age 17. Patient's grandmother born with heart valve defect. TKRN documented as of this encounter (statuses as of 09/05/2022) [facility]03-11-2022 History of Past illness Narrative* Problem Noted Date Diagnosed Date Resolved Date Anemia during in third trimester 07/06/2021 09/17/2021 Antepartum multigravida of a dvanced maternal age 1002/05/2021 09/17/2021 Overview: 02/05/2021atient is 35 years old. Advanced Maternal age discussed. Invasive and noninvasive testing options discussed. Patient declines further information on amniocentesis and [facility]. Patient desires nuchal ultrasound and materniti 21 testing.TKRN Tobacco use during 02/05/2021 02/19/2022 Overview: 02/05/2021t smokes 3 cigarettes a day down from 1 pack a day. Discussed risks of smoking during . Advised pt to quit.TKRN History of cholestasis during 02/05/2021 09/17/2021 Overview: prior Endometriosis of right ovary 09/21/2020 09/17/2021 History of gestational diabetes 04/16/2017 07/17/2021 Overview: 02/05/2021 Patient has a history of gestational diabetes with her last . She did use insulin towards the end of her . TKRN Diet controlled gestational diabetes mellitus (GDM) in third trimester 12/20/2016 09/17/2021 Overview: December 20, 2016 Has GDM. Needs supplies and teaching ERIKA. Neva Ro MD Umbilical hernia without obs truction or gangrene 10/07/2016 05/14/2019 Abnormal antibody titer 09/17/201603/29 Overview: September 17, 2016 See blood bank note. Paternal sample needs anaylized. Neva Ro MD September 24, 2016 Unable to do maternal crossmatch w/ 's blood due to ABO incompatability. Neva Ro MD associated with us e of clomiphene, currently in third trimester 08/01/2016 04/16/2017 Overview: 08/01/2016This is a Clomid . Patient and have been attempting for 1 year. TKRN with history of ce sarean section, antepartum 08/01/2016 09/17/2021 Overview: 02/05/2021t had 2 previous C sections. She would like to discuss a possible with Dr. Ro at her new OB appointment. EMMIs on and ordered. I asked patient to please attempt to watch these prior to her new OB appointment with Dr. Ro. TKRN History of macrosomia in inf ant in prior , currently 08/01/2016 09/17/2021 Overview: 02/05/2021atient's first child's weight was 9 pounds 13 ounces, second child 8 pounds 10 ounces. TKRN History of hypertension 08/01/201608/27 Overview: 02/05/2021atient has a history of hypertension diagnosed January [address] Willian Marquez. She states she has been off medication since April 2016. TKRN Family history of spina bifida 08/01/2016 09/17/2021 Overview: 02/05/2021 Patient's 4th cousin with spina bifida.TKRN Patient requested diagnostic testing 08/01/2016 09/17/2021 Overview: 02/05/2021 patient requests nuchal ultrasound and [id number] testing. Patient declines genetic carrier screening testing.Vickie De Leon RN High-risk supervision 10/08/2013 01/21/2014 Overview: 12/06/13 Copy of records from 2007 faxed to L&D and sent to [facility] [place] Cholestasis of 10/06/2013 Overview: mfm consult, ursodiol 500 mg BID. Increased testing will discuss with MFM. Emely Olivia MD Pruritus of 09/28/20132013 Overview: 6/: w/u for cholestasis Abnormal glucose complicating 09/08/2013 07/17/2021 Overview: July 06, 2021 needs 3 hr Supervision of normal first 05/06/2013 10/08/2013 Nausea and vomiting during 05/06/2013 04/16/2017 Overview: 08/01/2016Patient is complaining of nausea and vomiting in . Advised patient to call/come in if she is unable to keep any food or fluids down in a 24-hour period.TKRN Quit smoking 04/06/2013 05/14/2019 Overview: 08/01/2016Pt recently quit smoking March 30. Discussed risks of smoking during and advised pt to continue not smoking.TKRM History of depression 04/06/20132021 Overview: 02/05/2021 Pt has a history of depression diagnosed in 2008 treated by a psychiatrist in [place]. . She has been off medication since 2013. She states she did have depression after the of her first child discussed increased risks of depression during and and importance of reporting the development or worsening of symptoms should they occur.Pt denies ever having any suicidal thoughts or tendencies or thoughts of hurting others. TKRN Family history of congenital heart defect 04/06/2013 09/17/2021 Overview: 04/06/2013 The father of the baby's brother born with an undiagnosed heart defect and of sudden cardiac arrest at age 17. Patient's grandmother born with heart valve defect. TKRN documented as of this encounter (statuses as of 01/01/2023) [facility]03-11-2022 History of Past illness Narrative* Problem Noted Date Diagnosed Date Resolved Date Anemia during in third trimester 07/06/2021 09/17/2021 Antepartum multigravida of a dvanced maternal age 1002/05/2021 09/17/2021 Overview: 02/05/2021atient is 35 years old. Advanced Maternal age discussed. Invasive and noninvasive testing options discussed. Patient declines further information on amniocentesis and [facility]. Patient desires nuchal ultrasound and materniti 21 testing.TKRN Tobacco use during 02/05/2021 02/19/2022 Overview: 02/05/2021t smokes 3 cigarettes a day down from 1 pack a day. Discussed risks of smoking during . Advised pt to quit.TKRN History of cholestasis during 02/05/2021 09/17/2021 Overview: prior Endometriosis of right ovary 09/21/2020 09/17/2021 History of gestational diabetes 04/16/2017 07/17/2021 Overview: 02/05/2021 Patient has a history of gestational diabetes with her last . She did use insulin towards the end of her . TKRN Diet controlled gestational diabetes mellitus (GDM) in third trimester 12/20/2016 09/17/2021 Overview: December 20, 2016 Has GDM. Needs supplies and teaching ERIKA. Neva Ro MD Umbilical hernia without obs truction or gangrene 10/07/2016 05/14/2019 Abnormal antibody titer 09/17/201603/29 Overview: September 17, 2016 See blood bank note. Paternal sample needs anaylized. Neva Ro MD September 24, 2016 Unable to do maternal crossmatch w/ 's blood due to ABO incompatability. Neva Ro MD associated with us e of clomiphene, currently in third trimester 08/01/2016 04/16/2017 Overview: 08/01/2016This is a Clomid . Patient and have been attempting for 1 year. TKRN with history of ce sarean section, antepartum 08/01/2016 09/17/2021 Overview: 02/05/2021t had 2 previous C sections. She would like to discuss a possible with Dr. Ro at her new OB appointment. EMMIs on and ordered. I asked patient to please attempt to watch these prior to her new OB appointment with Dr. Ro. TKRN History of macrosomia in inf ant in prior , currently 08/01/2016 09/17/2021 Overview: 02/05/2021atient's first child's weight was 9 pounds 13 ounces, second child 8 pounds 10 ounces. TKRN History of hypertension 08/01/201608/27 Overview: 02/05/2021atient has a history of hypertension diagnosed January [address] Willian Marquez. She states she has been off medication since April 2016. TKRN Family history of spina bifida 08/01/2016 09/17/2021 Overview: 02/05/2021 Patient's 4th cousin with spina bifida.TKRN Patient requested diagnostic testing 08/01/2016 09/17/2021 Overview: 02/05/2021 patient requests nuchal ultrasound and [id number] testing. Patient declines genetic carrier screening testing.Vickie De Leon RN High-risk supervision 10/08/2013 01/21/2014 Overview: 12/06/13 Copy of records from 2007 faxed to L&D and sent to [facility]. [place] Cholestasis of 10/06/2013 Overview: mfm consult, ursodiol 500 mg BID. Increased testing will discuss with MFM. Emely Olivia MD Pruritus of 09/28/20132013 Overview: 09/28: w/u for cholestasis Abnormal glucose complicating 09/08/2013 07/17/2021 Overview: July 06, 2021 needs 3 hr Supervision of normal first 05/06/2013 10/08/2013 Nausea and vomiting during 05/06/2013 04/16/2017 Overview: 08/01/2016Patient is complaining of nausea and vomiting in . Advised patient to call/come in if she is unable to keep any food or fluids down in a 24-hour period.TKRN Quit smoking 04/06/2013 05/14/2019 Overview: 08/01/2016Pt recently quit smoking March 30. Discussed risks of smoking during and advised pt to continue not smoking.TKRM History of depression 04/06/20132021 Overview: 02/05/2021 Pt has a history of depression diagnosed in 2008 treated by a psychiatrist in [place]. . She has been off medication since 2013. She states she did have depression after the of her first child discussed increased risks of depression during and and importance of reporting the development or worsening of symptoms should they occur.Pt denies ever having any suicidal thoughts or tendencies or thoughts of hurting others. TKRN Family history of congenital heart defect 04/06/2013 09/17/2021 Overview: 04/06/2013 The father of the baby's brother born with an undiagnosed heart defect and of sudden cardiac arrest at age 17. Patient's grandmother born with heart valve defect. TKRN documented as of this encounter (statuses as of 03/19/2023) [facility]03-11-20[facility] History of Past illness Narrative* Problem Noted Date Diagnosed Date Resolved Date Anemia during in third trimester 07/06/2021 09/17/2021 Antepartum multigravida of a dvanced maternal age 1002/05/2021 09/17/2021 Overview: 02/05/2021atient is 35 years old. Advanced Maternal age discussed. Invasive and noninvasive testing options discussed. Patient declines further information on amniocentesis and [facility]. Patient desires nuchal ultrasound and materniti 21 testing.TKRN Tobacco use during 02/05/2021 02/19/2022 Overview: 02/05/2021t smokes 3 cigarettes a day down from 1 pack a day. Discussed risks of smoking during . Advised pt to quit.TKRN History of cholestasis during 02/05/2021 09/17/2021 Overview: prior Endometriosis of right ovary 09/21/2020 09/17/2021 History of gestational diabetes 04/16/2017 07/17/2021 Overview: 02/05/2021 Patient has a history of gestational diabetes with her last . She did use insulin towards the end of her . TKRN Diet controlled gestational diabetes mellitus (GDM) in third trimester 12/20/2016 09/17/2021 Overview: December 20, 2016 Has GDM. Needs supplies and teaching ERIKA. Neva Ro MD Umbilical hernia without obs truction or gangrene 10/07/2016 05/14/2019 Abnormal antibody titer 09/17/201603/29 Overview: September 17, 2016 See blood bank note. Paternal sample needs anaylized. Neva Ro MD September 24, 2016 Unable to do maternal crossmatch w/ 's blood due to ABO incompatability. Neva Ro MD associated with us e of clomiphene, currently in third trimester 08/01/2016 04/16/2017 Overview: 08/01/2016This is a Clomid . Patient and have been attempting for 1 year. TKRN with history of ce sarean section, antepartum 08/01/2016 09/17/2021 Overview: 02/05/2021t had 2 previous C sections. She would like to discuss a possible with Dr. Ro at her new OB appointment. EMMIs on and ordered. I asked patient to please attempt to watch these prior to her new OB appointment with Dr. Ro. TKRN History of macrosomia in inf ant in prior , currently 08/01/2016 09/17/2021 Overview: 02/05/2021atient's first child's weight was 9 pounds 13 ounces, second child 8 pounds 10 ounces. TKRN History of hypertension 08/01/201608/27 Overview: 02/05/2021atient has a history of hypertension diagnosed January [address] Willian Marquez. She states she has been off medication since April 2016. TKRN Family history of spina bifida 08/01/2016 09/17/2021 Overview: 02/05/2021 Patient's 4th cousin with spina bifida.TKRN Patient requested diagnostic testing 08/01/2016 09/17/2021 Overview: 02/05/2021 patient requests nuchal ultrasound and [id number] testing. Patient declines genetic carrier screening testing.Vickie De Leon RN High-risk supervision 10/08/2013 01/21/2014 Overview: 12/06/13 Copy of records from 2007 faxed to L&D and sent to [facility]. [place] Cholestasis of 10/06/2013 Overview: mfm consult, ursodiol 500 mg BID. Increased testing will discuss with MFM. Emely Olivia MD Pruritus of 09/28/20132013 Overview: 09/28: w/u for cholestasis Abnormal glucose complicating 09/08/2013 07/17/2021 Overview: July 06, 2021 needs 3 hr Supervision of normal first 05/06/2013 10/08/2013 Nausea and vomiting during 05/06/2013 04/16/2017 Overview: 08/01/2016Patient is complaining of nausea and vomiting in . Advised patient to call/come in if she is unable to keep any food or fluids down in a 24-hour period.TKRN Quit smoking 04/06/2013 05/14/2019 Overview: 08/01/2016Pt recently quit smoking March 30. Discussed risks of smoking during and advised pt to continue not smoking.TKRM History of depression 04/06/20132021 Overview: 02/05/2021 Pt has a history of depression diagnosed in 2008 treated by a psychiatrist in [place]. . She has been off medication since 2013. She states she did have depression after the of her first child discussed increased risks of depression during and and importance of reporting the development or worsening of symptoms should they occur.Pt denies ever having any suicidal thoughts or tendencies or thoughts of hurting others. TKRN Family history of congenital heart defect 04/06/2013 09/17/2021 Overview: 04/06/2013 The father of the baby's brother born with an undiagnosed heart defect and of sudden cardiac arrest at age 17. Patient's grandmother born with heart valve defect. TKRN documented as of this encounter (statuses as of 04/04/2023) [facility] History of Past illness Narrative* Problem Noted Date Resolved Date History of gestational diabetes 04/16/2017 07/17/2021 Overview: 02/05/2021 Patient has a history of gestational diabetes with her last . She did use insulin towards the end of her . TKRN Umbilical hernia without obstruction or gangrene 10/07/2016 05/14/2019 Abnormal antibody titer 09/17/2016 04/16/20 17 Overview: September 17, 2016 See blood bank note. Paternal sample needs anaylized. Neva Ro MD September 24, 2016 Unable to do maternal crossmatch w/ 's blood due to ABO incompatability. Neva Ro MD associated with us e of clomiphene, currently in third trimester 08/01/2016 04/16/2017 Overview: 08/01/2016This is a Clomid . Patient and have been attempting for 1 year. TKRN High-risk supervision 10/08/2013 01/21/2014 Overview: 12/06/13 Copy of records from 2007 faxed to L&D and sent to [facility]. Cholestasis of 10/06/2013 014 Overview: mfm consult, ursodiol 500 mg BID. Increased testing will discuss with MFM. Emely Olivia MD Pruritus of 09/28/2013 01/21/2014 Overview: 09/28: w/u for cholestasis Abnormal glucose complicating 09/09/19 14 07/17/2021 Overview: July 06, 2021 needs 3 hr Supervision of normal first 05/06/2013 10/08/2013 Nausea and vomiting during 05/06/2013 04/16/2017 Overview: 08/01/2016Patient is complaining of nausea and vomiting in . Advised patient to call/come in if she is unable to keep any food or fluids down in a 24-hour period.TKRN Quit smoking 04/06/2013 05/14/2019 Overview: 08/01/2016Pt recently quit smoking March 30. Discussed risks of smoking during and advised pt to continue not smoking.TKRM documented as of this encounter (statuses as of 07/17/2021) [facility]12-20-2017 History of Past illness Narrative* Problem Noted Date Resolved Date History of gestational diabetes 04/16/2017 07/17/2021 Overview: 02/05/2021 Patient has a history of gestational diabetes with her last . She did use insulin towards the end of her . TKRN Umbilical hernia without obstruction or gangrene 10/07/2016 05/14/2019 Abnormal antibody titer 09/17/2016 04/16/20 Overview: September 17, 2016 See blood bank note. Paternal sample needs anaylized. Neva Ro MD September 24, 2016 Unable to do maternal crossmatch w/ 's blood due to ABO incompatability. Neva Ro MD associated with us e of clomiphene, currently in third trimester 08/01/2016 04/16/2017 Overview: 08/01/2016This is a Clomid . Patient and have been attempting for 1 year. TKRN High-risk supervision 10/08/2013 01/21/2014 Overview: 12/06/13 Copy of records from 2007 faxed to L&D and [place] [facility] Cholestasis of 10/06/2013 014 Overview: mfm consult, ursodiol 500 mg BID. Increased testing will discuss with MFM. Emely Olivia MD Pruritus of 09/28/2013 01/21/2014 Overview: 09/28: w/u for cholestasis Abnormal glucose complicating 09/09/19 14 07/17/2021 Overview: July 06, 2021 needs 3 hr Supervision of normal first 05/06/2013 10/08/2013 Nausea and vomiting during 05/06/2013 04/16/2017 Overview: 08/01/2016Patient is complaining of nausea and vomiting in . Advised patient to call/come in if she is unable to keep any food or fluids down in a 24-hour period.TKRN Quit smoking 04/06/2013 05/14/2019 Overview: 08/01/2016Pt recently quit smoking March 30. Discussed risks of smoking during and advised pt to continue not smoking.TKRM documented as of this encounter (statuses as of 07/18/2021) [facility]12[facility]2017 History of Past illness Narrative* Problem Noted Date Resolved Date History of gestational diabetes 04/16/2017 07/17/2021 Overview: 02/05/2021 Patient has a history of gestational diabetes with her last . She did use insulin towards the end of her . TKRN Umbilical hernia without obstruction or gangrene 10/07/2016 05/14/2019 Abnormal antibody titer 09/17/2016 04/16/20 17 Overview: September 17, 2016 See blood bank note. Paternal sample needs anaylized. Neva Ro MD September 24, 2016 Unable to do maternal crossmatch w/ 's blood due to ABO incompatability. Neva Ro MD associated with us e of clomiphene, currently in third trimester 08/01/2016 04/16/2017 Overview: 08/01/2016This is a Clomid . Patient and have been attempting for 1 year. TKRN High-risk supervision 10/08/2013 01/21/2014 Overview: 12/06/13 Copy of records from 2007 faxed to L&D and sent to [facility]. Cholestasis of 10/06/2013 014 Overview: mfm consult, ursodiol 500 mg BID. Increased testing will discuss with MFM. Emely Olivia MD Pruritus of 09/28/2013 01/21/2014 Overview: 09/28: w/u for cholestasis Abnormal glucose complicating 09/09/19 14 07/17/2021 Overview: July 06, 2021 needs 3 hr Supervision of normal first 05/06/2013 10/08/2013 Nausea and vomiting during 05/06/2013 04/16/2017 Overview: 08/01/2016Patient is complaining of nausea and vomiting in . Advised patient to call/come in if she is unable to keep any food or fluids down in a 24-hour period.TKRN Quit smoking 04/06/2013 05/14/2019 Overview: 08/01/2016Pt recently quit smoking March 30. Discussed risks of smoking during and advised pt to continue not smoking.TKRM documented as of this encounter (statuses as of 07/18/2021) [facility]12[facility]2017 History of Past illness Narrative* Problem Noted Date Resolved Date History of gestational diabetes 04/16/2017 07/17/2021 Overview: 02/05/2021 Patient has a history of gestational diabetes with her last . She did use insulin towards the end of her . TKRN Umbilical hernia without obstruction or gangrene 10/07/2016 05/14/2019 Abnormal antibody titer 09/17/2016 04/16/20 Overview: September 17, 2016 See blood bank note. Paternal sample needs anaylized. Neva Ro MD September 24, 2016 Unable to do maternal crossmatch w/ 's blood due to ABO incompatability. Neva Ro MD associated with us e of clomiphene, currently in third trimester 08/01/2016 04/16/2017 Overview: 08/01/2016This is a Clomid . Patient and have been attempting for 1 year. TKRN High-risk supervision 10/08/2013 01/21/2014 Overview: 12/06/13 Copy of records from 2007 faxed to L&D and [place] [facility] Cholestasis of 10/06/2013 014 Overview: mfm consult, ursodiol 500 mg BID. Increased testing will discuss with MFM. Emely Olivia MD Pruritus of 09/28/2013 01/21/2014 Overview: 09/28: w/u for cholestasis Abnormal glucose complicating 09/09/19 14 07/17/2021 Overview: July 06, 2021 needs 3 hr Supervision of normal first 05/06/2013 10/08/2013 Nausea and vomiting during 05/06/2013 04/16/2017 Overview: 08/01/2016Patient is complaining of nausea and vomiting in . Advised patient to call/come in if she is unable to keep any food or fluids down in a 24-hour period.TKRN Quit smoking 04/06/2013 05/14/2019 Overview: 08/01/2016Pt recently quit smoking March 30. Discussed risks of smoking during and advised pt to continue not smoking.TKRM documented as of this encounter (statuses as of 08/03/2021) [facility]12-20[facility]2017 History of Past illness Narrative* Problem Noted Date Resolved Date History of gestational diabetes 04/16/2017 07/17/2021 Overview: 02/05/2021 Patient has a history of gestational diabetes with her last . She did use insulin towards the end of her . TKRN Umbilical hernia without obstruction or gangrene 10/07/2016 05/14/2019 Abnormal antibody titer 09/17/2016 04/16/20 Overview: September 17, 2016 See blood bank note. Paternal sample needs anaylized. Neva Ro MD September 24, 2016 Unable to do maternal crossmatch w/ 's blood due to ABO incompatability. Neva Ro MD associated with us e of clomiphene, currently in third trimester 08/01/2016 04/16/2017 Overview: 08/01/2016This is a Clomid . Patient and have been attempting for 1 year. TKRN High-risk supervision 10/08/2013 01/21/2014 Overview: 12/06/13 Copy of records from 2007 faxed to L&D and [place] [facility] Cholestasis of 10/06/2013 014 Overview: mfm consult, ursodiol 500 mg BID. Increased testing will discuss with MFM. Emely Olivia MD Pruritus of 09/28/2013 01/21/2014 Overview: 09/28: w/u for cholestasis Abnormal glucose complicating 09/09/19 14 07/17/2021 Overview: July 06, 2021 needs 3 hr Supervision of normal first 05/06/2013 10/08/2013 Nausea and vomiting during 05/06/2013 04/16/2017 Overview: 08/01/2016Patient is complaining of nausea and vomiting in . Advised patient to call/come in if she is unable to keep any food or fluids down in a 24-hour period.TKRN Quit smoking 04/06/2013 05/14/2019 Overview: 08/01/2016Pt recently quit smoking March 30. Discussed risks of smoking during and advised pt to continue not smoking.TKRM documented as of this encounter (statuses as of 08/03/2021) [facility]12[facility]2017 History of Past illness Narrative* Problem Noted Date Resolved Date History of gestational diabetes 04/16/2017 07/17/2021 Overview: 02/05/2021 Patient has a history of gestational diabetes with her last . She did use insulin towards the end of her . TKRN Umbilical hernia without obstruction or gangrene 10/07/2016 05/14/2019 Abnormal antibody titer 09/17/2016 04/16/20 Overview: September 17, 2016 See blood bank note. Paternal sample needs anaylized. Neva Ro MD September 24, 2016 Unable to do maternal crossmatch w/ 's blood due to ABO incompatability. Neva Ro MD associated with us e of clomiphene, currently in third trimester 08/01/2016 04/16/2017 Overview: 08/01/2016This is a Clomid . Patient and have been attempting for 1 year. TKRN High-risk supervision 10/08/2013 01/21/2014 Overview: 12/06/13 Copy of records from 2007 faxed to L&D and sent to [facility] [place] Cholestasis of 10/06/2013 014 Overview: mfm consult, ursodiol 500 mg BID. Increased testing will discuss with MFM. Emely Olivia MD Pruritus of 09/28/2013 01/21/2014 Overview: 09/28: w/u for cholestasis Abnormal glucose complicating 09/09/19 14 07/17/2021 Overview: July 06, 2021 needs 3 hr Supervision of normal first 05/06/2013 10/08/2013 Nausea and vomiting during 05/06/2013 04/16/2017 Overview: 08/01/2016Patient is complaining of nausea and vomiting in . Advised patient to call/come in if she is unable to keep any food or fluids down in a 24-hour period.TKRN Quit smoking 04/06/2013 05/14/2019 Overview: 08/01/2016Pt recently quit smoking March 30. Discussed risks of smoking during and advised pt to continue not smoking.TKRM documented as of this encounter (statuses as of 08/09/2021) [facility]12[facility]2017 History of Past illness Narrative* Problem Noted Date Resolved Date History of gestational diabetes 04/16/2017 07/17/2021 Overview: 02/05/2021 Patient has a history of gestational diabetes with her last . She did use insulin towards the end of her . TKRN Umbilical hernia without obstruction or gangrene 10/07/2016 05/14/2019 Abnormal antibody titer 09/17/2016 04/16/20 17 Overview: September 17, 2016 See blood bank note. Paternal sample needs anaylized. Neva Ro MD September 24, 2016 Unable to do maternal crossmatch w/ 's blood due to ABO incompatability. Neva Ro MD associated with us e of clomiphene, currently in third trimester 08/01/2016 04/16/2017 Overview: 08/01/2016This is a Clomid . Patient and have been attempting for 1 year. TKRN High-risk supervision 10/08/2013 01/21/2014 Overview: 12/06/13 Copy of records from 2007 faxed to L&D and sent to [facility]. Cholestasis of 10/06/2013 014 Overview: mfm consult, ursodiol 500 mg BID. Increased testing will discuss with MFM. Emely Olivia MD Pruritus of 09/28/2013 01/21/2014 Overview: 09/28: w/u for cholestasis Abnormal glucose complicating 09/09/19 14 07/17/2021 Overview: July 06, 2021 needs 3 hr Supervision of normal first 05/06/2013 10/08/2013 Nausea and vomiting during 05/06/2013 04/16/2017 Overview: 08/01/2016Patient is complaining of nausea and vomiting in . Advised patient to call/come in if she is unable to keep any food or fluids down in a 24-hour period.TKRN Quit smoking 04/06/2013 05/14/2019 Overview: 08/01/2016Pt recently quit smoking March 30. Discussed risks of smoking during and advised pt to continue not smoking.TKRM documented as of this encounter (statuses as of 08/09/2021) [facility]12[facility]2017 History of Past illness Narrative* Problem Noted Date Resolved Date History of gestational diabetes 04/16/2017 07/17/2021 Overview: 02/05/2021 Patient has a history of gestational diabetes with her last . She did use insulin towards the end of her . TKRN Umbilical hernia without obstruction or gangrene 10/07/2016 05/14/2019 Abnormal antibody titer 09/17/2016 04/16/20 Overview: September 17, 2016 See blood bank note. Paternal sample needs anaylized. Neva Ro MD September 24, 2016 Unable to do maternal crossmatch w/ 's blood due to ABO incompatability. Neva Ro MD associated with us e of clomiphene, currently in third trimester 08/01/2016 04/16/2017 Overview: 08/01/2016This is a Clomid . Patient and have been attempting for 1 year. TKRN High-risk supervision 10/08/2013 01/21/2014 Overview: 12/06/13 Copy of records from 2007 faxed to L&D and sent to [facility]. Cholestasis of 10/06/2013 014 Overview: mfm consult, ursodiol 500 mg BID. Increased testing will discuss with MFM. Emely Olivia MD Pruritus of 09/28/2013 01/21/2014 Overview: 09/28: w/u for cholestasis Abnormal glucose complicating 09/09/19 14 07/17/2021 Overview: July 06, 2021 needs 3 hr Supervision of normal first 05/06/2013 10/08/2013 Nausea and vomiting during 05/06/2013 04/16/2017 Overview: 08/01/2016Patient is complaining of nausea and vomiting in . Advised patient to call/come in if she is unable to keep any food or fluids down in a 24-hour period.TKRN Quit smoking 04/06/2013 05/14/2019 Overview: 08/01/2016Pt recently quit smoking March 30. Discussed risks of smoking during and advised pt to continue not smoking.TKRM documented as of this encounter (statuses as of 08/14/2021) [facility]12[facility]2017 History of Past illness Narrative* Problem Noted Date Resolved Date History of gestational diabetes 04/16/2017 07/17/2021 Overview: 02/05/2021 Patient has a history of gestational diabetes with her last . She did use insulin towards the end of her . TKRN Umbilical hernia without obstruction or gangrene 10/07/2016 05/14/2019 Abnormal antibody titer 09/17/2016 04/16/20 Overview: September 17, 2016 See blood bank note. Paternal sample needs anaylized. Neva Ro MD September 24, 2016 Unable to do maternal crossmatch w/ 's blood due to ABO incompatability. Neva Ro MD associated with us e of clomiphene, currently in third trimester 08/01/2016 04/16/2017 Overview: 08/01/2016This is a Clomid . Patient and have been attempting for 1 year. TKRN High-risk supervision 10/08/2013 01/21/2014 Overview: 12/06/13 Copy of records from 2007 faxed to L&D and sent [place] [facility] Cholestasis of 10/06/2013 014 Overview: mfm consult, ursodiol 500 mg BID. Increased testing will discuss with MFM. Emely Olivia MD Pruritus of 09/28/2013 01/21/2014 Overview: 09/28: w/u for cholestasis Abnormal glucose complicating 09/09/19 14 07/17/2021 Overview: July 06, 2021 needs 3 hr Supervision of normal first 05/06/2013 10/08/2013 Nausea and vomiting during 05/06/2013 04/16/2017 Overview: 08/01/2016Patient is complaining of nausea and vomiting in . Advised patient to call/come in if she is unable to keep any food or fluids down in a 24-hour period.TKRN Quit smoking 04/06/2013 05/14/2019 Overview: 08/01/2016Pt recently quit smoking March 30. Discussed risks of smoking during and advised pt to continue not smoking.TKRM documented as of this encounter (statuses as of 08/17/2021) [facility]12[facility]2017 History of Past illness Narrative* Problem Noted Date Resolved Date History of gestational diabetes 04/16/2017 07/17/2021 Overview: 02/05/2021 Patient has a history of gestational diabetes with her last . She did use insulin towards the end of her . TKRN Umbilical hernia without obstruction or gangrene 10/07/2016 05/14/2019 Abnormal antibody titer 09/17/2016 04/16/20 Overview: September 17, 2016 See blood bank note. Paternal sample needs anaylized. Neva Ro MD September 24, 2016 Unable to do maternal crossmatch w/ 's blood due to ABO incompatability. Neva Ro MD associated with us e of clomiphene, currently in third trimester 08/01/2016 04/16/2017 Overview: 08/01/2016This is a Clomid . Patient and have been attempting for 1 year. TKRN High-risk supervision 10/08/2013 01/21/2014 Overview: 12/06/13 Copy of records from 2007 faxed to L&D and sent [place] [facility] [place] Cholestasis of 10/06/2013 014 Overview: mfm consult, ursodiol 500 mg BID. Increased testing will discuss with MFM. Emely Olivia MD Pruritus of 09/28/2013 01/21/2014 Overview: 09/28: w/u for cholestasis Abnormal glucose complicating 09/09/19 14 07/17/2021 Overview: July 06, 2021 needs 3 hr Supervision of normal first 05/06/2013 10/08/2013 Nausea and vomiting during 05/06/2013 04/16/2017 Overview: 08/01/2016Patient is complaining of nausea and vomiting in . Advised patient to call/come in if she is unable to keep any food or fluids down in a 24-hour period.TKRN Quit smoking 04/06/2013 05/14/2019 Overview: 08/01/2016Pt recently quit smoking March 30. Discussed risks of smoking during and advised pt to continue not smoking.TKRM documented as of this encounter (statuses as of 08/20/2021) [facility]12[facility]2017 History of Past illness Narrative* Problem Noted Date Resolved Date History of gestational diabetes 04/16/2017 07/17/2021 Overview: 02/05/2021 Patient has a history of gestational diabetes with her last . She did use insulin towards the end of her . TKRN Umbilical hernia without obstruction or gangrene 10/07/2016 05/14/2019 Abnormal antibody titer 09/17/2016 04/16/20 17 Overview: September 17, 2016 See blood bank note. Paternal sample needs anaylized. Neva Ro MD September 24, 2016 Unable to do maternal crossmatch w/ 's blood due to ABO incompatability. Neva Ro MD associated with us e of clomiphene, currently in third trimester 08/01/2016 04/16/2017 Overview: 08/01/2016This is a Clomid . Patient and have been attempting for 1 year. TKRN High-risk supervision 10/08/2013 01/21/2014 Overview: 12/06/13 Copy of records from 2007 faxed to L&D and sent to [facility]. Cholestasis of 10/06/2013 014 Overview: mfm consult, ursodiol 500 mg BID. Increased testing will discuss with MFM. Emely Olivia MD Pruritus of 09/28/2013 01/21/2014 Overview: 09/28: w/u for cholestasis Abnormal glucose complicating 09/09/19 14 07/17/2021 Overview: July 06, 2021 needs 3 hr Supervision of normal first 05/06/2013 10/08/2013 Nausea and vomiting during 05/06/2013 04/16/2017 Overview: 08/01/2016Patient is complaining of nausea and vomiting in . Advised patient to call/come in if she is unable to keep any food or fluids down in a 24-hour period.TKRN Quit smoking 04/06/2013 05/14/2019 Overview: 08/01/2016Pt recently quit smoking March 30. Discussed risks of smoking during and advised pt to continue not smoking.TKRM documented as of this encounter (statuses as of 08/21/2021) [facility] History of Past illness Narrative* Problem Noted Date Resolved Date History of gestational diabetes 04/16/2017 07/17/2021 Overview: 02/05/2021 Patient has a history of gestational diabetes with her last . She did use insulin towards the end of her . TKRN Umbilical hernia without obstruction or gangrene 10/07/2016 05/14/2019 Abnormal antibody titer 09/17/2016 04/16/20 17 Overview: September 17, 2016 See blood bank note. Paternal sample needs anaylized. Neva Ro MD September 24, 2016 Unable to do maternal crossmatch w/ 's blood due to ABO incompatability. Neva Ro MD associated with us e of clomiphene, currently in third trimester 08/01/2016 04/16/2017 Overview: 08/01/2016This is a Clomid . Patient and have been attempting for 1 year. TKRN High-risk supervision 10/08/2013 01/21/2014 Overview: 12/06/13 Copy of records from 2007 faxed to L&D and sent to [facility]. Cholestasis of 10/06/2013 014 Overview: mfm consult, ursodiol 500 mg BID. Increased testing will discuss with MFM. Emely Olivia MD Pruritus of 09/28/2013 01/21/2014 Overview: 09/28: w/u for cholestasis Abnormal glucose complicating 09/09/19 14 07/17/2021 Overview: July 06, 2021 needs 3 hr Supervision of normal first 05/06/2013 10/08/2013 Nausea and vomiting during 05/06/2013 04/16/2017 Overview: 08/01/2016Patient is complaining of nausea and vomiting in . Advised patient to call/come in if she is unable to keep any food or fluids down in a 24-hour period.TKRN Quit smoking 04/06/2013 05/14/2019 Overview: 08/01/2016Pt recently quit smoking March 30. Discussed risks of smoking during and advised pt to continue not smoking.TKRM documented as of this encounter (statuses as of 08/24/2021) [facility] History of Past illness Narrative* Problem Noted Date Resolved Date History of gestational diabetes 04/16/2017 07/17/2021 Overview: 02/05/2021 Patient has a history of gestational diabetes with her last . She did use insulin towards the end of her . TKRN Umbilical hernia without obstruction or gangrene 10/07/2016 05/14/2019 Abnormal antibody titer 09/17/2016 04/16/20 Overview: September 17, 2016 See blood bank note. Paternal sample needs anaylized. Neva Ro MD September 24, 2016 Unable to do maternal crossmatch w/ 's blood due to ABO incompatability. Neva Ro MD associated with us e of clomiphene, currently in third trimester 08/01/2016 04/16/2017 Overview: 08/01/2016This is a Clomid . Patient and have been attempting for 1 year. TKRN High-risk supervision 10/08/2013 01/21/2014 Overview: 12/06/13 Copy of records from 2007 faxed to L&D and [place] [facility] Cholestasis of 10/06/2013 014 Overview: mfm consult, ursodiol 500 mg BID. Increased testing will discuss with MFM. Emely Olivia MD Pruritus of 09/28/2013 01/21/2014 Overview: 09/28: w/u for cholestasis Abnormal glucose complicating 09/09/19 14 07/17/2021 Overview: July 06, 2021 needs 3 hr Supervision of normal first 05/06/2013 10/08/2013 Nausea and vomiting during 05/06/2013 04/16/2017 Overview: 08/01/2016Patient is complaining of nausea and vomiting in . Advised patient to call/come in if she is unable to keep any food or fluids down in a 24-hour period.TKRN Quit smoking 04/06/2013 05/14/2019 Overview: 08/01/2016Pt recently quit smoking March 30. Discussed risks of smoking during and advised pt to continue not smoking.TKRM documented as of this encounter (statuses as of 08/27/2021) [facility] History of Past illness Narrative* Problem Noted Date Resolved Date History of gestational diabetes 04/16/2017 07/17/2021 Overview: 02/05/2021 Patient has a history of gestational diabetes with her last . She did use insulin towards the end of her . TKRN Umbilical hernia without obstruction or gangrene 10/07/2016 05/14/2019 Abnormal antibody titer 09/17/2016 04/16/20 17 Overview: September 17, 2016 See blood bank note. Paternal sample needs anaylized. Neva Ro MD September 24, 2016 Unable to do maternal crossmatch w/ 's blood due to ABO incompatability. Neva Ro MD associated with us e of clomiphene, currently in third trimester 08/01/2016 04/16/2017 Overview: 08/01/2016This is a Clomid . Patient and have been attempting for 1 year. TKRN High-risk supervision 10/08/2013 01/21/2014 Overview: 12/06/13 Copy of records from 2007 faxed to L&D and sent to [facility]. Cholestasis of 10/06/2013 014 Overview: mfm consult, ursodiol 500 mg BID. Increased testing will discuss with MFM. Emely Olivia MD Pruritus of 09/28/2013 01/21/2014 Overview: 09/28: w/u for cholestasis Abnormal glucose complicating 09/09/19 14 07/17/2021 Overview: July 06, 2021 needs 3 hr Supervision of normal first 05/06/2013 10/08/2013 Nausea and vomiting during 05/06/2013 04/16/2017 Overview: 08/01/2016Patient is complaining of nausea and vomiting in . Advised patient to call/come in if she is unable to keep any food or fluids down in a 24-hour period.TKRN Quit smoking 04/06/2013 05/14/2019 Overview: 08/01/2016Pt recently quit smoking March 30. Discussed risks of smoking during and advised pt to continue not smoking.TKRM documented as of this encounter (statuses as of 08/31/2021) [facility] History of Past illness Narrative* Problem Noted Date Resolved Date History of gestational diabetes 04/16/2017 07/17/2021 Overview: 02/05/2021 Patient has a history of gestational diabetes with her last . She did use insulin towards the end of her . TKRN Umbilical hernia without obstruction or gangrene 10/07/2016 05/14/2019 Abnormal antibody titer 09/17/2016 04/16/20 17 Overview: September 17, 2016 See blood bank note. Paternal sample needs anaylized. Neva Ro MD September 24, 2016 Unable to do maternal crossmatch w/ 's blood due to ABO incompatability. Neva Ro MD associated with us e of clomiphene, currently in third trimester 08/01/2016 04/16/2017 Overview: 08/01/2016This is a Clomid . Patient and have been attempting for 1 year. TKRN High-risk supervision 10/08/2013 01/21/2014 Overview: 12/06/13 Copy of records from 2007 faxed to L&D and [place] [facility] Cholestasis of 10/06/2013 014 Overview: mfm consult, ursodiol 500 mg BID. Increased testing will discuss with MFM. Emely Olivia MD Pruritus of 09/28/2013 01/21/2014 Overview: 09/28: w/u for cholestasis Abnormal glucose complicating 09/09/19 14 07/17/2021 Overview: July 06, 2021 needs 3 hr Supervision of normal first 05/06/2013 10/08/2013 Nausea and vomiting during 05/06/2013 04/16/2017 Overview: 08/01/2016Patient is complaining of nausea and vomiting in . Advised patient to call/come in if she is unable to keep any food or fluids down in a 24-hour period.TKRN Quit smoking 04/06/2013 05/14/2019 Overview: 08/01/2016Pt recently quit smoking March 30. Discussed risks of smoking during and advised pt to continue not smoking.TKRM documented as of this encounter (statuses as of 09/03/2021) [facility] [facility] of Past illness Narrative* Problem Noted Date Resolved Date History of gestational diabetes 04/16/2017 07/17/2021 Overview: 02/05/2021 Patient has a history of gestational diabetes with her last . She did use insulin towards the end of her . TKRN Umbilical hernia without obstruction or gangrene 10/07/2016 05/14/2019 Abnormal antibody titer 09/17/2016 04/16/20 Overview: September 17, 2016 See blood bank note. Paternal sample needs anaylized. Neva Ro MD September 24, 2016 Unable to do maternal crossmatch w/ 's blood due to ABO incompatability. Neva Ro MD associated with us e of clomiphene, currently in third trimester 08/01/2016 04/16/2017 Overview: 08/01/2016This is a Clomid . Patient and have been attempting for 1 year. TKRN High-risk supervision 10/08/2013 01/21/2014 Overview: 12/06/13 Copy of records from 2007 faxed to L&D and sent [facility] [place] Cholestasis of 10/06/2013 014 Overview: mfm consult, ursodiol 500 mg BID. Increased testing will discuss with MFM. Emely Olivia MD Pruritus of 09/28/2013 01/21/2014 Overview: 09/28: w/u for cholestasis Abnormal glucose complicating 09/09/19 14 07/17/2021 Overview: July 06, 2021 needs 3 hr Supervision of normal first 05/06/2013 10/08/2013 Nausea and vomiting during 05/06/2013 04/16/2017 Overview: 08/01/2016Patient is complaining of nausea and vomiting in . Advised patient to call/come in if she is unable to keep any food or fluids down in a 24-hour period.TKRN Quit smoking 04/06/2013 05/14/2019 Overview: 08/01/2016Pt recently quit smoking March 30. Discussed risks of smoking during and advised pt to continue not smoking.TKRM documented as of this encounter (statuses as of 09/07/2021) [facility] Abnormal maternal glucose tolerance, antepartum- Primary [facility] Diagnosis Gestational diabetes mellitus, class A1- Primary Abnormal maternal glucose tolerance, complicating , childbirth, or the puerperium, unspecified as to episode of care History of macrosomia in in prior , currently with other poor obstetric history AMA (advanced maternal age) multigravida 35+, third trimester 31 weeks gestation of state, incidental [facility] Diagnosis Multigravida of advanced maternal age in third trimester- Primary Gestational diabetes mellitus, class A1 Abnormal maternal glucose tolerance, complicating , childbirth, or the puerperium, unspecified as to episode of care 33 weeks gestation of state, incidental Gestational diabetes mellitus, class A2 Abnormal maternal glucose tolerance, complicating , childbirth, or the puerperium, unspecified as to episode of care [facility] Diagnosis Gestational diabetes mellitus (GDM) requiring insulin- Primary 33 weeks gestation of state, incidental [facility] Diagnosis Multigravida of advanced maternal age in third trimester 33 weeks gestation of state, incidental Gestational diabetes mellitus, class A2 Abnormal maternal glucose tolerance, complicating , childbirth, or the puerperium, unspecified as to episode of care [facility] Diagnosis 35 weeks gestation of - Primary state, incidental Multigravida of advanced maternal age in third trimester Gestational diabetes mellitus (GDM) requiring insulin High-risk in third trimester Grade II hemorrhoids Unspecified hemorrhoids with other complication [facility] Diagnosis 35 weeks gestation of state, incidental Multigravida of advanced maternal age in third trimester Gestational diabetes mellitus (GDM) requiring insulin High-risk in third trimester [facility] Diagnosis 36 weeks gestation of - Primary state, incidental Multigravida of advanced maternal age in third trimester Gestational diabetes mellitus (GDM) requiring insulin High-risk in third trimester [facility] Diagnosis 37 weeks gestation of - Primary state, incidental Multigravida of advanced maternal age in third trimester Gestational diabetes mellitus (GDM) requiring insulin High-risk in third trimester [facility] Diagnosis 37 weeks gestation of - Primary state, incidental Multigravida of advanced maternal age in third trimester Gestational diabetes mellitus (GDM) requiring insulin High-risk in third trimester [facility] Diagnosis Gestational diabetes mellitus, class A2- Primary Abnormal maternal glucose tolerance, complicating , childbirth, or the puerperium, unspecified as to episode of care Multigravida of advanced maternal age in third trimester High-risk in third trimester Advanced maternal age in multigravida, third trimester 38 weeks gestation of state, incidental [facility] Diagnosis Gestational diabetes mellitus, class A2- Primary Abnormal maternal glucose tolerance, complicating , childbirth, or the puerperium, unspecified as to episode of care Multigravida of advanced maternal age in third trimester High-risk in third trimester 38 weeks gestation of state, incidental [facility] Diagnosis Status post section routine follow-up- Primary Routine follow-up History of gestational diabetes mellitus Personal history of gestational diabetes Encounter for IUD insertion Encounter for insertion of intrauterine contraceptive device [facility] Diagnosis History of gestational diabetes mellitus- Primary Personal history of gestational diabetes care and examination Routine follow-up Encounter for IUD insertion Encounter for insertion of intrauterine contraceptive device documented in this encounter [facility] note* Diagnosis Encounter for IUD insertion- Primary Encounter for insertion of intrauterine contraceptive device documented in this encounter [facility] note* Diagnosis Anxiety, generalized- Primary Generalized anxiety disorder documented in this encounter [facility] note* Diagnosis Breakthrough bleeding associated with intrauterine device (IUD)- Primary Abnormal uterine bleeding (AUB) IUD (intrauterine device) in place Presence of intrauterine contraceptive device documented in this encounter [facility] note* Diagnosis Breakthrough bleeding associated with intrauterine device (IUD)- Primary Surveillance of previously prescribed intrauterine contraceptive device documented in this encounter [facility] for referral (narrative)* Outpatient Procedure (Routine) - Authorized Specialty Diagnoses / Procedures Referred By Emily gross Referred To Contact [facility] Diagnoses Multigravida of advanced maternal age in third trimester 33 weeks gestation of Gestational diabetes mellitus, class A2 Procedures NON-STRESS TEST NON-STRESS TEST Neva Ro MD [address] [place] [address] [address] Referral ID Status Reason Start Date Expiration Date Visits Requested Visits Authorized [id number] Authorized Auto-Generat ed Referral 08/03/2021 04/27/2022 1 1 T [facility] for referral (narrative)* Outpatient Procedure (Routine) - Authorized Specialty Diagnoses / Procedures Referred By Emily gross Referred To Contact [facility] Diagnoses 35 weeks gestation of Multigravida of advanced maternal age in third trimester Gestational diabetes mellitus (GDM) requiring insulin High-risk in third trimester Z3A.35 O09.523 O24.414 O09.93 Procedures NON-STRESS TEST NON-STRESS TEST Neva Ro MD [address] [place] [address] [address] Referral ID Status Reason Start Date Expiration Date Visits Requested Visits Authorized [id number] Authorized Auto-Generat ed Referral 04/28/2021 04/27/2022 8 8 T [facility] for referral (narrative)* Outpatient Procedure (Routine) - Pending Review Specialty Diagnoses / Procedures Referred By Emily gross Referred To Contact [facility] Diagnoses Encounter for IUD insertion Procedures INSERT INTRAUTERINE DEVICE LEVONORGESTREL IU 52MG 5 YR INSERT INTRAUTERINE DEVICE Neva Ro MD [address] [place] [place] [address] [facility] [address] [place] [address] Referral ID Status Reason Start Date Expiration Date Visits Requested Visits Authorized [id number] Pending Review Auto-Generat ed Referral 09/17/2021 09/17/2022 1 1 T [facility] for referral (narrative)* Outpatient Procedure (Routine) - Pending Review Specialty Diagnoses / Procedures Referred By Emily gross Referred To Contact [facility] Diagnoses Encounter for IUD insertion Procedures INSERT INTRAUTERINE DEVICE LEVONORGESTREL IU 52MG 5 YR INSERT INTRAUTERINE DEVICE Neva Ro MD [address] [place] [address] [facility] [address] [place] [address] Referral ID Status Reason Start Date Expiration Date Visits Requested Visits Authorized [id number] Pending Review Auto-Generat ed Referral 10/22/2021 10/22/2022 1 1 [facility] for referral (narrative)* Diagnostic Procedure Only (Routine) - Pending Review Specialty Diagnoses / Procedures Referred By Emily gross Referred To Contact [facility] Diagnoses Breakthrough bleeding associated with intrauterine device (IUD) Abnormal uterine bleeding (AUB) IUD (intrauterine device) in place Procedures US FEMALE PELVIS TRANSVAG US TRANSVAGINAL Guerita Felder MD [address] [address] [facility] Referral ID Status Reason Start Date Expiration Date Visits Requested Visits Authorized [id number] Pending Review Auto-Generat ed Referral 07/11/2022 08/10/2023 1 1 [facility] for visit Narrative* Outpatient Procedure (Routine) - Authorized Specialty Diagnoses / Procedures Referred By Contac t Referred To Contact [facility] Diagnoses 35 weeks gestation of Multigravida of advanced maternal age in third trimester Gestational diabetes mellitus (GDM) requiring insulin High-risk in third trimester Z3A.35 O09.523 O24.414 O09.93 Procedures NON-STRESS TEST NON-STRESS TEST Neva Ro MD [address] [place] [address] [facility] [address] [place] [address] Referral ID Status Reason Start Date Expiration Date Visits Requested Visits Authorized [id number] Authorized Auto-Generat ed Referral 04/28/2021 04/27/2022 8 8 [facility] Summary Purpose Family History No Family History Records FoundNo Family History Records FoundNo Family History Records FoundNo Family History Records FoundNo Family History Records FoundNo Family History Records Found Advance Directives No Advanced Directives Records FoundNo Advanced Directives Records FoundNo Advanced Directives Records FoundNo Advanced Directives Records FoundNo Advanced Directives Records FoundNo Advanced Directives Records Found Reason for Referral Specialty Diagnoses / Procedures Referred By Contac t Referred To Contact Diagnoses 31 weeks gestation of Gestational diabetes mellitus, class A1 Procedures CONSULT TO DIABETES EDUCATION OFFICE/OUTPATIENT [facility] 60-74 MINUTES Guerita Felder MD [address] [place] [address] Referral ID Status Reason Start Date Expiration Date Visits Requested Visits Authorized [id number] Pending Review PCP Requested Referral 07/18/2021 07/18/2022 1 1 Specialty Diagnoses / Procedures Referred By Contac t Referred To Contact [facility] Diagnoses 31 weeks gestation of Gestational diabetes mellitus, class A1 Procedures CONSULT TO NUTRITION THERAPY OFFICE/OUTPATIENT [facility] HIGH MDM 60-74 MINUTES Guerita Felder MD [address] [place] [address] Referral ID Status Reason Start Date Expiration Date Visits Requested Visits Authorized [id number] Pending Review PCP Requested Referral 07/18/2021 07/18/2022 1 1 Medications Administered Section Inactive Administered Medications - up to 3 most recent administrations Medication Order MAR Action Action Date Dose Rate Site levonorgestrel 20 mcg/24 hours (7 yrs) 52 mg 1 Each intrauterine device (MIRENA) 1 Each, INTRAUTERINE, ONCE (UP TO 30 DAYS AMB), 1 dose, On Fri12/12/21 at 1600, Hazardous Potential Reproductive Risk Drug: Use appropriate PPE. Given 12/12/2021 4:43 PM EDT 1 Each Additional Source Comments INFORMATION SOURCE (unrecogn ized section and content) DATE CREATED AUTHOR AUTHOR'S ORGANIZ ATION 10/02/2018 [facility] DATE CREATED AUTHOR AUTHOR'S ORGANIZ ATION 06/21/2019 [facility] DATE CREATED AUTHOR AUTHOR'S ORGANIZ ATION 02/25/2023 [facility] DATE CREATED AUTHOR AUTHOR'S ORGANIZ ATION 03/18/2023 [facility] DATE CREATED AUTHOR AUTHOR'S ORGANIZ ATION 04/25/2023 [facility] Source Comments (unrecognize d section and content) In the event this informatio n is protected by the Federal Confidentiality of Alcohol and Drug Abuse Patient Records regulations: The Federal rules restrict any use of the information to criminally investigate or prosecute any alcohol or drug abuse patient.[facility] the event this information is protected by the Federal Confidentiality of Alcohol and Drug Abuse Patient Records regulations: The Federal rules restrict any use of the information to criminally investigate or prosecute any alcohol or drug abuse patient.[facility] the event this information is protected by the Federal Confidentiality of Alcohol and Drug Abuse Patient Records regulations: The Federal rules restrict any use of the information to criminally investigate or prosecute any alcohol or drug abuse patient.[facility] the event this information is protected by the Federal Confidentiality of Alcohol and Drug Abuse Patient Records regulations: The Federal rules restrict any use of the information to criminally investigate or prosecute any alcohol or drug abuse patient.[facility] the event this information is protected by the Federal Confidentiality of Alcohol and Drug Abuse Patient Records regulations: The Federal rules restrict any use of the information to criminally investigate or prosecute any alcohol or drug abuse patient.[facility] the event this information is protected by the Federal Confidentiality of Alcohol and Drug Abuse Patient Records regulations: The Federal rules restrict any use of the information to criminally investigate or prosecute any alcohol or drug abuse patient.[facility] the event this information is protected by the Federal Confidentiality of Alcohol and Drug Abuse Patient Records regulations: The Federal rules restrict any use of the information to criminally investigate or prosecute any alcohol or drug abuse patient.[facility] the event this information is protected by the Federal Confidentiality of Alcohol and Drug Abuse Patient Records regulations: The Federal rules restrict any use of the information to criminally investigate or prosecute any alcohol or drug abuse patient.[facility] the event this information is protected by the Federal Confidentiality of Alcohol and Drug Abuse Patient Records regulations: The Federal rules restrict any use of the information to criminally investigate or prosecute any alcohol or drug abuse patient.[facility] the event this information is protected by the Federal Confidentiality of Alcohol and Drug Abuse Patient Records regulations: The Federal rules restrict any use of the information to criminally investigate or prosecute any alcohol or drug abuse patient.[facility] the event this information is protected by the Federal Confidentiality of Alcohol and Drug Abuse Patient Records regulations: The Federal rules restrict any use of the information to criminally investigate or prosecute any alcohol or drug abuse patient.[facility] the event this information is protected by the Federal Confidentiality of Alcohol and Drug Abuse Patient Records regulations: The Federal rules restrict any use of the information to criminally investigate or prosecute any alcohol or drug abuse patient.[facility] Hospital[facility] the event this information is protected by the Federal Confidentiality of Alcohol and Drug Abuse Patient Records regulations: The Federal rules restrict any use of the information to criminally investigate or prosecute any alcohol or drug abuse patient.[facility] the event this information is protected by the Federal Confidentiality of Alcohol and Drug Abuse Patient Records regulations: The Federal rules restrict any use of the information to criminally investigate or prosecute any alcohol or drug abuse patient.[facility] Hospital[facility] the event this information is protected by the Federal Confidentiality of Alcohol and Drug Abuse Patient Records regulations: The Federal rules restrict any use of the information to criminally investigate or prosecute any alcohol or drug abuse patient.[facility] Hospital[facility] the event this information is protected by the Federal Confidentiality of Alcohol and Drug Abuse Patient Records regulations: The Federal rules restrict any use of the information to criminally investigate or prosecute any alcohol or drug abuse patient.[facility] Hospital[facility] the event this information is protected by the Federal Confidentiality of Alcohol and Drug Abuse Patient Records regulations: The Federal rules restrict any use of the information to criminally investigate or prosecute any alcohol or drug abuse patient.[facility] Hospital[facility] the event this information is protected by the Federal Confidentiality of Alcohol and Drug Abuse Patient Records regulations: The Federal rules restrict any use of the information to criminally investigate or prosecute any alcohol or drug abuse patient.[facility] Hospital[facility] the event this information is protected by the Federal Confidentiality of Alcohol and Drug Abuse Patient Records regulations: The Federal rules restrict any use of the information to criminally investigate or prosecute any alcohol or drug abuse patient.[facility] Hospital[facility] the event this information is protected by the Federal Confidentiality of Alcohol and Drug Abuse Patient Records regulations: The Federal rules restrict any use of the information to criminally investigate or prosecute any alcohol or drug abuse patient.[facility] Hospital[facility] the event this information is protected by the Federal Confidentiality of Alcohol and Drug Abuse Patient Records regulations: The Federal rules restrict any use of the information to criminally investigate or prosecute any alcohol or drug abuse patient.[facility] HospitalIn the event this information is protected by the Federal Confidentiality of Alcohol and Drug Abuse Patient Records regulations: The Federal rules restrict any use of the information to criminally investigate or prosecute any alcohol or drug abuse patient.[facility] HospitalIn the event this information is protected by the Federal Confidentiality of Alcohol and Drug Abuse Patient Records regulations: The Federal rules restrict any use of the information to criminally investigate or prosecute any alcohol or drug abuse patient.[facility] HospitalIn the event this information is protected by the Federal Confidentiality of Alcohol and Drug Abuse Patient Records regulations: The Federal rules restrict any use of the information to criminally investigate or prosecute any alcohol or drug abuse patient.[facility] HospitalIn the event this information is protected by the Federal Confidentiality of Alcohol and Drug Abuse Patient Records regulations: The Federal rules restrict any use of the information to criminally investigate or prosecute any alcohol or drug abuse patient.[facility] HospitalIn the event this information is protected by the Federal Confidentiality of Alcohol and Drug Abuse Patient Records regulations: The Federal rules restrict any use of the information to criminally investigate or prosecute any alcohol or drug abuse patient.[facility]In the event this information is protected by the Federal Confidentiality of Alcohol and Drug Abuse Patient Records regulations: The Federal rules restrict any use of the information to criminally investigate or prosecute any alcohol or drug abuse patient.[facility] HospitalIn the event this information is protected by the Federal Confidentiality of Alcohol and Drug Abuse Patient Records regulations: The Federal rules restrict any use of the information to criminally investigate or prosecute any alcohol or drug abuse patient.[facility] Reason for Visit (unrecogniz ed section and content) Specialty Diagnoses / Procedures Referred By Contac t Referred To Contact [employer] [facility] Diagnoses ob Procedures EST PATIENT VISIT LEVEL 5 EST [facility] OB Self Neva Ro MD [address] [place] [address] Referral ID Status Reason Start Date Expiration Date V isits Requested Visits Authorized [id number] Authorized 03/07/2021 03/07/2022 99 99 Reason Comments Early Reason Onset Date Comments Care 09/07/2021 Specialty Diagnoses / Procedures Referred By Contac t Referred To Contact [employer] [facility] Diagnoses ob Procedures EST PATIENT VISIT LEVEL 5 EST [facility] OB Self Neva Ro MD [address] [place] [address] Reason Onset Date Comments Care 09/03/2021 Reason Comments Results Reason Onset Date Comments Care 07/18/2021 Specialty Diagnoses / Procedures Referred By Contac t Referred To Contact [employer] [facility] Diagnoses OB Procedures OFFICE/OUTPATIENT ESTABLISHED MOD MDM 30-39 MIN EST [facility] OB Self Guerita Felder MD [address] [place] [address] Referral ID Status Reason Start Date Expiration Date Visits Re quested Visits Authorized [id number] Closed 04/28/2021 04/27/2022 1 1 Reason Onset Date Comments Care 08/03/2021 Specialty Diagnoses / Procedures Referred By Contac t Referred To Contact [employer] [facility] Diagnoses OB Procedures EST [facility] OB Neva Ro MD [address] [place] [address] Neva Ro MD [address] [place] [address] Referral ID Status Reason Start Date Expiration Date Visits Re quested Visits Authorized [id number] Closed 08/03/2021 11/01/2021 1 1 Reason Comments US Specialty Diagnoses / Procedures Referred By Contac t Referred To [facility] Diagnoses AMA (advanced maternal age) multigravida 35+, third trimester 29 weeks gestation of Supervision of other high risk pregnancies, third trimester Procedures OBSTETRIC ULTRASOUND WHI US PREG UTERUS AFTER 1ST TRIMEST GESTATION Neva Ro MD [address] [place] [address] [address] Referral ID Status Reason Start Date Expiration Date V isits Requested Visits Authorized [id number] Closed Auto-Generate d Referral 04/28/2021 04/27/2022 1 1 Reason Onset Date Comments Care 08/09/2021 Specialty Diagnoses / Procedures Referred By Contac t Referred To Contact [facility] Diagnoses Multigravida of advanced maternal age in third trimester 33 weeks gestation of Gestational diabetes mellitus, class A2 Procedures NON-STRESS TEST NON-STRESS TEST Neva Ro MD [address] [place] [place] [address] [address] Referral ID Status Reason Start Date Expiration Date V isits Requested Visits Authorized [id number] Closed Auto-Generate d Referral 08/03/2021 04/27/2022 1 1 Reason Comments Patient Question Reason Comments Patient Update Reason Onset Date Comments Care 08/16/2021 Reason Comments Insurance Authorization Reason Onset Date Comments Care 08/24/2021 Specialty Diagnoses / Procedures Referred By Contac t Referred To Contact [employer] Diagnoses Dizziness dizziness Procedures OFFICE/OUTPATIENT ESTABLISHED HIGH MDM 40-54 MIN EST WHI OB Aleida Cole APRN.CNM [address] [place] [address] Aleida Cole APRN.CNM [address] [place] [address] Referral ID Status Reason Start Date Expiration Date Visits Re quested Visits Authorized [id number] Closed 06/20/2021 04/27/2022 1 1 Reason Onset Date Comments Care 08/27/2021 Specialty Diagnoses / Procedures Referred By Contac t Referred To Contact [facility] Diagnoses 35 weeks gestation of Multigravida of advanced maternal age in third trimester Gestational diabetes mellitus (GDM) requiring insulin High-risk in third trimester Z3A.35 O09.523 O24.414 O09.93 Procedures NON-STRESS TEST NON-STRESS TEST Neva Ro MD [address] [place] [address] [place] [phone] Referral ID Status Reason Start Date Expiration Date Visits Requested Visits Authorized [id number] Authorized Auto-Generat ed Referral 04/28/2021 04/27/2022 8 8 Reason Onset Date Comments Care 08/31/2021 Reason Onset Date Comments Insertion Of IUD 12/12/2021 Specialty Diagnoses / Procedures Referred By Emily gross Referred To Contact [facility] Diagnoses Encounter for IUD insertion Encounter for removal of intrauterine contraceptive device Procedures INSERT INTRAUTERINE DEVICE LEVONORGESTREL IU 52MG 5 YR INSERT INTRAUTERINE DEVICE REMOVE INTRAUTERINE DEVICE Neva Ro MD [address] [place] [phone] [address] [address] Referral ID Status Reason Start Date Expiration Date Visits Requested Visits Authorized [id number] Authorized Auto-Generat ed Referral 12/05/2021 04/27/2022 2 2 Reason Comments Anxiety Specialty Diagnoses / Procedures Referred By Emily gross Referred To Contact [employer] Diagnoses Follow-up exam Virtual med f/u- needs refill Procedures PHYS/QHP TELEPHONE EVALUATION 5-10 MIN VIDEO SPEC EST Self Neva Ro MD [address] [place] [address] Referral ID Status Reason Start Date Expiration Date Visits Re quested Visits Authorized [id number] Closed 02/19/2022 04/27/2022 1 1 Reason Onset Date Comments Refill Request 07/04/2022 Reason Comments IUD Patient Update Reason Comments IUD check Specialty Diagnoses / Procedures Referred By Emily gross Referred To Contact Gynecology / [employer] [facility] Diagnoses IUD check up IUD check- see phone note Procedures OFFICE/OUTPATIENT ESTABLISHED HIGH MDM 40-54 MIN EST WHI PATIENT Alyssa Dennis Raulito [address] [place] [address] Janelle Rocha, UNIQUE.CENTER DIRECTOR [address] [address] Referral ID Status Reason Start Date Expiration Date Visits Re quested Visits Authorized [id number] Closed 07/12/2022 04/27/2023 1 1 Reason Onset Date Comments Refill Request 09/05/2022 Reason Onset Date Comments Refill Request 01/01/2023 Reason Onset Date Comments Refill Request 03/19/2023 Care Teams (unrecognized sec tion and content) Hospice Bereavement Coordinator Relationship Specialty Start Date End Date Alyssa Dennis Raulito PCP - General Family Practice 07/31/15 Hospice Bereavement Coordinator Relationship Specialty Start Date End Date Alyssa Dennis Raulito PCP - General Family Practice 07/31/15 Hospice Bereavement Coordinator Relationship Specialty Start Date End Date Alyssa Dennis Raulito PCP - General Family Practice 07/31/15 Hospice Bereavement Coordinator Relationship Specialty Start Date End Date Alyssa Dennis Raulito PCP - General Family Practice 07/31/15 Hospice Bereavement Coordinator Relationship Specialty Start Date End Date Alyssa Dennis Raulito PCP - General Family Practice 07/31/15 Hospice Bereavement Coordinator Relationship Specialty Start Date End Date DennisAlyssa whitmore Raulito PCP - General Family Practice 07/31/15 Hospice Bereavement Coordinator Relationship Specialty Start Date End Date DennisAlyssa whitmore Raulito PCP - General Family Practice 07/31/15 Hospice Bereavement Coordinator Relationship Specialty Start Date End Date Alyssa Dennis PCP - General Family Practice 07/31/15 Hospice Bereavement Coordinator Relationship Specialty Start Date End Date Alyssa Dennis PCP - General Family Practice 07/31/15 Hospice Bereavement Coordinator Relationship Specialty Start Date End Date Alyssa Dennis PCP - General Family Practice 07/31/15 Hospice Bereavement Coordinator Relationship Specialty Start Date End Date Alyssa Dennis PCP - General Family Practice 07/31/15 Hospice Bereavement Coordinator Relationship Specialty Start Date End Date Alyssa Dennis PCP - General Family Practice 07/31/15 Hospice Bereavement Coordinator Relationship Specialty Start Date End Date Alyssa Dennis PCP - General Family Practice 07/31/15 Hospice Bereavement Coordinator Relationship Specialty Start Date End Date Alyssa Dennis PCP - General Family Practice 07/31/15 Hospice Bereavement Coordinator Relationship Specialty Start Date End Date Alyssa Dennis PCP - General Family Practice 07/31/15 Hospice Bereavement Coordinator Relationship Specialty Start Date End Date Alyssa Dennis J PCP - General Family Practice 07/31/15 Hospice Bereavement Coordinator Relationship Specialty Start Date End Date Alyssa Dennis J PCP - General Family Practice 07/31/15 Hospice Bereavement Coordinator Relationship Specialty Start Date End Date Alyssa Dennis J PCP - General Family Medicine 07/31/15 Hospice Bereavement Coordinator Relationship Specialty Start Date End Date Alyssa Dennis J PCP - General Family Medicine 07/31/15 Hospice Bereavement Coordinator Relationship Specialty Start Date End Date Alyssa Dennis PCP - [facility] 07/31/15 Hospice Bereavement Coordinator Relationship Specialty Start Date End Date Alyssa Dennis PCP - [facility] 07/31/15 Hospice Bereavement Coordinator Relationship Specialty Start Date End Date Alyssa Dennis PCP - [facility] 07/31/15 Hospice Bereavement Coordinator Relationship Specialty Start Date End Date Alyssa Dennis PCP - [facility] 07/31/15 Hospice Bereavement Coordinator Relationship Specialty Start Date End Date Alyssa Dennis [facility] - [facility] 07/31/15 FOR RECORDS PERTAINING TO PATIENTS WHO ARE OR HAVE BEEN ENROLLED IN A CHEMICAL DEPENDENCY/SUBSTANCEABUSE PROGRAM, SOME INFORMATION MAY BE OMITTED. This clinical summary was aggregated from multiple sources. Caution should be exercised in using it in the provision of clinical care. This summary normalizes information from multiple sources, and as a consequence, information in this document may materially change the coding, format and clinical context of patient data. In addition, data may be omitted in some cases. CLINICAL DECISIONS SHOULD BE BASED ON THE PRIMARY CLINICAL RECORDS. [facility] [employer], [facility]. provides no warranty or guarantee of the accuracy or completeness of information in this document.
[2023-04-26] MEDS: proMETHazine 25 MG Tablet PO (18:33)
[2023-04-26] MEDS: 0.9% Normal Saline (1000mL) 1,000 ML 1000 ML IV (18:34)
[2023-04-26 18:48] LABS: Absolute Lymphocyte Count 2.08 X10^3/uL (0.83-4.51); Absolute Neutrophil Count 8.8 X10^3/uL (2.0-7.7); Basophil# 0.04 X10^3/uL; Basophil% 0.3 % (0-1); Eosinophil# 0.17 X10^3/uL; Eosinophils% 1.4 % (0-5); Hematocrit 41.9 % (37-47); Hemoglobin 13.8 g/dL (12.0-15.0); Lymphocyte # 2.08 X10^3/ul (0.83-4.51); Lymphocyte % 17.4 % (19-41); Mean Corp Hgb Conc 32.9 g/dL (32-36); Mean Corpuscular Hgb 28.6 pg (27.0-32.0); Mean Corpuscular Volume 86.9 fL (81-99); Mean Platelet Vol. 10.6 fl (6.2-12.0); Monocyte# 0.81 X10^3/uL; Monocyte% 6.8 % (0-10); NRBC Flagged by Analyzer 0 % (0-5); Neutrophil # 8.77 X10^3/uL (2.7-7.7); Neutrophil % 73.5 % (47-70); Platelet Count 229 K/mm3 (150-450); RBC Distribution Width CV 13.9 % (11.6-14.6); Red Blood Count 4.82 M/mm3 (4.2-5.4); White Blood Count 11.9 K/mm3 (4.4-11.0)
[2023-04-26 19:06] LABS: Anion Gap 5 (5-15); BUN 9 mg/dL (7-18); BUN/Creat Ratio 14.4 RATIO (10-20); Calcium,Total 9.5 mg/dL (8.5-10.1); Chloride 105 mmol/L (98-107); Creatinine, Serum 0.63 mg/dL (0.55-1.02); EST Glomerular Filtration Rate 113 mL/min (>60); Est Glom Filt Rate - Afr Amer 136 mL/min (>60); Estimated Creatinine Clearance 116.59 ml/min; Glucose 84 mg/dL (74-106); Potassium 3.7 mmol/L (3.5-5.1); Sodium Level 136 mmol/L (136-145)
[2023-04-26 19:12] LABS: Bacteria 0 SEEN /hpf (None Seen); Mucous, Urine 0 SEEN /hpf (<or=2+); Red Blood Cells-Urine 0 SEEN /hpf (0-5); White Blood Cells 0 SEEN /hpf (0-5)
[2023-04-26 19:13] LABS: Color, Urine Yellow (Yellow); Glucose, Dipstick Normal (Normal); Ketone-Dipstick Negative (Negative); Leukocyte Esterase-Dipstick Negative /ul (Negative); Nitrite-Dipstick Negative (Negative); Occult Blood-Urine Negative /ul (Negative); Protein-Dipstick Negative (Negative); Specific Gravity, Urine 1.015 (1.002-1.030); Urine Bilirubin Dipstick Negative (Negative); Urine Clarity Sl. Cloudy (Clear); Urine Urobilinogen Normal (Normal)
[2023-04-26 19:23] LABS: Squamous Epithelial Cells - UA 0-5 SEEN /hpf (5-10)
== END 2023-04-26 20:45 | disposition home or self-care (01) ==
PROVIDERS: Emergency Provider Emergency Medicine; PCP Physician Assistant; Visit Provider Emergency Medicine
DX: O99.331 Smoking (tobacco) complicating pregnancy, first trimester (principal); O21.0 Mild hyperemesis gravidarum; F17.210 Nicotine dependence, cigarettes, uncomplicated; Z3A.01 Less than 8 weeks gestation of pregnancy
CPT/HCPCS: 80048; 81001; 84702; 85025; 96360; 96361; 99283; J7030

== ENCOUNTER 2023-11-21 09:34 | Inpatient (IN) | payer OTHER, SELFPAY ==
--- NOTE | 2023-11-19 18:28 | PCM.HP.BLA ---
History and Physical Date of Admission: 11/21/23 HPI: The patient is a 38 year old female presenting for pre-operative visit. She is scheduled for , for previous c/s, poorly controlled GDM on 11/21/23. Procedure discussed along with risks, benefits and complications. Other alternatives discussed for management. Consent form signed? Yes. PAST MEDICAL HISTORY PAST MEDICAL HISTORY Diagnosis Date ? Anemia during in third trimester 07/06/2021 ? DEPRESSION ? Diet controlled gestational diabetes mellitus (GDM) in third trimester 12/20/2016 December 20, 2016 Has GDM. Needs supplies and teaching ERIKA. Consuelo Llanos MD ? elevated liver enzymes 1st ? Endometriosis ? Endometriosis of right ovary 09/21/2020 ? Fibromyalgia ? Gestational diabetes mellitus, class A1 12/20/2016 ? History of gestational diabetes in prior , currently 04/16/2017 ? Hypertension ? Infertility, female Clomid ? Lumbar herniated disc 10/2006 ? Migraines with aura ? PCOS (polycystic ovarian syndrome) ? depression PAST SURGICAL HISTORY PAST SURGICAL HISTORY Procedure Laterality Date ? DELIVERY ONLY 12/11/2013 , low transverse ? DELIVERY ONLY 03/06/2017 ? DELIVERY ONLY 2021 ? INSERTION OF IUD 07/31/2018 removed ? PAST SURGICAL HISTORY OF 2003 WISDOM TEETH CURRENT MEDICATIONS Current Outpatient Medications Medication Sig Dispense Refill ? HUMALOG KWIKPEN INSULIN 100 unit/mL Inject 30 Units subcutaneously daily at bedtime. 6 mL 1 ? ONETOUCH ULTRA2 METER USE DIRECTED TO CHECK GLUCOSE LEVELS UP TO 7 TIMES DAILY ? ferrous sulfate (IRON ORAL) Take by mouth. ? Insulin Sherman, Disposable, (MICRODOT INSULIN PEN NEEDLE) 32 gauge x 5/32 1 Each once daily. 30 Each 3 ? blood sugar diagnostic test strip Use as directed to check glucose levels up to seven times daily. 200 Strip 8 ? Lancets Use as directed to check glucose levels up to seven times daily. 200 Each 8 ? alcohol swabs (ALCOHOL PREP PADS) Use as directed to check glucose levels up to seven times daily. 200 Each 8 ? escitalopram oxalate (LEXAPRO) 5 mg tablet Take 3 tablets by mouth once daily. 90 tablet 1 ? promethazine (PHENERGAN) 25 mg tablet Take 0.5-1 tablets by mouth every 6 hours as needed for nausea/vomiting. 30 tablet 1 ? omeprazole (PRILOSEC) 40 mg capsule Take 1 capsule by mouth once daily. 30 capsule 3 ? ondansetron orally disintegrating (ZOFRAN ODT) 4 mg disintegrating tablet Take 1-2 tablets by mouth every 8 hours as needed for nausea/vomiting. 90 tablet 1 ? vits62/FA/om3/dha/epa ( GUMMY ORAL) Take by mouth once daily. With folic acid ? ondansetron HCl (ZOFRAN ORAL) Take 8 mg by mouth three times a day as needed. No current facility-administered medications for this visit. ALLERGIES: Penicillins, Erythromycin Base, and Reglan [Metoclopramide Hcl] PERSONAL HISTORY: SOCIAL HISTORY Social History Tobacco Use ? Smoking status: Some Days Years: 5 Types: Cigarettes ? Smokeless tobacco: Former Types: Snuff Quit date: 03/30/2013 ? Tobacco comments: 1-3 cigarettes a day Vaping Use ? Vaping Use: Former ? Quit date: 02/05/2017 Substance Use Topics ? Alcohol use: Not Currently Comment: occasionally, NOT WHILE ? Drug use: No FAMILY HISTORY: FAMILY HISTORY FAMILY HISTORY Problem Relation Age of Onset ? other ( DEPRESSION) Mother HAD ATTACHMENT DISORDER ? Heart Father ? Hypertension Father ? Alcohol/Drug Brother ? Hypertension Paternal Grandmother ? Heart Paternal Grandmother ? other (PARKINSONS DISEASE) Paternal Grandmother ? Hypertension Paternal Grandfather ? Cancer Paternal Grandfather PRE-LEUKEMIA REVIEW OF SYMPTOMS: GENERAL: denies fevers or chills ENDOCRINOLOGY: has not been on steroids Cardiology : denies palpitations or chest pain Respiratory: denies SOB or cough Hematology: denies history of prolonged bleeding or easy bruising or VTE Allergy: Denies history of personal or family history of allergy to anesthesia PHYSICAL EXAMINATION: VITALS: Blood pressure 130/84, pulse 103, weight 101.2 kg (223 lb), last menstrual period 03/07/2023. GENERAL: The patient is well nourished, well hydrated in no acute distress. , The patient is oriented to time, place, and person. NECK: Supple. No lynphadenopathy, normal thyroid, no thyromegaly. LUNGS: Clear to auscultation bilaterally. no wheezes, rhonchi or rales HEART: Regular rate and rhythm, Normal heart sounds, and No murmurs or gallops abd- soft, nontender, gravid IMPRESSION: Estimated Date of Delivery: 12/12/23 w/ poorly controlled GDM and h/o previous c/s, desires tubal sterilization PLAN: The risks/benefits/alternatives and personal involved for the planned c/s and tubal sterilization were reviewed with the patient. Her questions were answered to her satisfaction and she desires to proceed. Consent was signed. I reviewed with her postop instructions and expectations. I have reviewed and updated past medical and surgical history, medications and allergies Assessment & Plan Assessment/Plan (1) Hx of section: (2) 37 weeks gestation of : (3) Maternal obesity syndrome in third trimester: (4) High risk multigravida in third trimester: (5) Advanced maternal age during in third trimester: (6) Sterilization: (7) Gestational diabetes requiring insulin: PLAN: Poorly controlled gestational diabetes. Patient has not been monitoring blood sugars regularly. Blood sugars have been significantly elevated. Decision made to proceed with delivery at 37 weeks due to noncontrolled diabetes and risks associated with this. Risk benefits and alternatives to early term delivery diabetes and I discussed with the patient she desires to proceed.
[2023-11-21] VITALS (17 sets, daily range): BP systolic 102–136; BP diastolic 65–86; PULSE 62–88; RESP 16; TEMP 36.1–36.7; O2SAT 95–100; BMI 34.7
[2023-11-21] MEDS: Acetaminophen 500 MG Tablet 1000 MG PO ×3 (09:48→23:07)
[2023-11-21] MEDS: Lactated Ringers 1,000 ML 999 ML IV (10:00)
[2023-11-21 10:25] LABS: Absolute Lymphocyte Count 1.74 X10^3/uL (0.83-4.51); Basophil# 0.04 X10^3/uL; Basophil% 0.4 % (0-1); Eosinophil# 0.14 X10^3/uL; Eosinophils% 1.3 % (0-5); Hematocrit 34.3 % (37-47); Hemoglobin 10.9 g/dL (12.0-15.0); Lymphocyte # 1.74 X10^3/ul (0.83-4.51); Lymphocyte % 16.5 % (19-41); Mean Corp Hgb Conc 31.8 g/dL (32-36); Mean Corpuscular Hgb 27.7 pg (27.0-32.0); Mean Corpuscular Volume 87.1 fL (81-99); Mean Platelet Vol. 11.4 fl (6.2-12.0); Monocyte% 4.7 % (0-10); NRBC Flagged by Analyzer 0 % (0-5); Neutrophil # 7.98 X10^3/uL (2.7-7.7); Neutrophil % 75.7 % (47-70); Platelet Count 179 K/mm3 (150-450); RBC Distribution Width CV 17.2 % (11.6-14.6); RBC Distribution Width SD 52.9 fl (35.1-43.9); Red Blood Count 3.94 M/mm3 (4.2-5.4); White Blood Count 10.6 K/mm3 (4.4-11.0)
[2023-11-21 10:50] LABS: Bedside Glucose 90 mg/dL (74-106)
[2023-11-21] MEDS: Lactated Ringers 1,000 ML 150 ML IV (10:57)
[2023-11-21] MEDS: Clindamycin 900 MG/50 ML BAG 75 MG IV (10:58)
[2023-11-21] MEDS: Gentamicin IV 310 MG in Dextrose 5%-Water (50mL Bag) 50 ML 100 MG IVPB (10:58)
[2023-11-21 10:59] LABS: Syphilis Antibodies Non-reactive
--- NOTE | 2023-11-21 12:05 | FALS_PTH ---
PATIENT: BALTAZAR DEMPSEY LOC: [facility] U#:[id number] AGE/SX: 38/F ROOM: WP008 RE11/21/[address]: Dr. Consuelo Llanos MD : 1985 BED: 1 DIS: 11/23/2023 SPEC #: [id number] RECD: 11/21/23 13:59 STATUS: PRISCILLA MUELLER #: [id number] RUDDY: 11/21/23 12:[address]: Consuelo Llanos DEPT: SURGICAL PATHOLOGY RECD BY: Jennifer Elaine ENTERED: 11/24/23 09:06 SP TYPE: FALL TUBES OTHR DR: PHILOMENA Martinez Tissues: Fallopian tube Procedures: Surgery Specimen Level II HEADER OPERATION: Tubal ligation PRE-OP DIAGNOSIS: Sterilization TISSUE SUBMITTED: Bilateral fallopian tubes- tie on right MICROSCOPIC DIAGNOSIS Right fallopian tube, salpingectomy: Complete cross sections of fallopian tube with no pathologic change. Left fallopian tube, salpingectomy: Complete cross sections of fallopian tube with no pathologic change. AM: 11/25/2023 MICROSCOPIC DESCRIPTION Slides are reviewed. GROSS DESCRIPTION Received in fixative is one container labeled with the patient's name and designated bilateral fallopian tubes- stitch on right. The specimen consists of bilateral fallopian tubes including fimbrial ends. Right fallopian tube measures 7.0 cm in length and 0.8 cm in diameter. Left fallopian tube is received in two pieces and measures 7.0cm in length and 0.7cm in diameter. Sections reveal unremarkable cut surfaces. Babbitter sections are submitted in two cassettes. 1- right fallopian tube, 2- left fallopian tube / SJ: 11/24/2023 TC:4 CPT: 79898 x2
--- NOTE | 2023-11-21 13:15 | EX.PCM.OBRPT ---
Assessment & Plan (1) Gestational diabetes requiring insulin: (2) Hx of section: (3) 37 weeks gestation of : (4) Sterilization: (5) High risk multigravida in third trimester: (6) Maternal obesity syndrome in third trimester: (7) Advanced maternal age during in third trimester: Maternal Data Information Final JAISON: 12/12/23 Final JAISON Source: [place] <20 weeks Gestational age: 37 0/7 Details Operative Information Date of Procedure: 11/21/23 Pre-Operative Diagnosis: 37 week high risk , poorly controlled GDM, previous c/s, sterilization request Post-Operative Diagnosis: same Classification: Scheduled Procedure Type: low transverse (with bilateral salpignectomy) transitional care manager #1: Dieter Fernandez Type of Anesthesia: Spinal Anesthesiologist: Yariel Olvera Antibiotic Given: Clindamycin 600mg IV x1 and Gentamicin 1.5mg/kg IV x1 Drain: Chaudhry to straight drain Estimated Blood Loss: 800 Fluids Replaced: 1000 Procedure Start Time: 12:02 Procedure Stop Time: 13:00 Time of Delivery: 12:05 Findings Description of Procedure: The patient was taken to the operating room. She was prepped and draped in the dorsal supine position with a leftward tilt. A Pfannenstiel skin incision was made approximately 2 cm above the symphysis pubis and carried through to underlying layer fascia with the scalpel. The fascia was incised incised in the midline and extended laterally with the Gonzalez scissors. The fascia was dissected off the rectus muscles with blunt and sharp dissection. The rectus muscles were in the midline and the peritoneum was entered bluntly. The peritoneal incision was stretched and the bladder blade was placed. The uterine incision was made in a low transverse fashion with the scalpel and extended superiorly and inferiorly with blunt dissection. The amniotic membranes were ruptured bluntly and clear amniotic fluid returned. The infant's head was brought to the incision in the flexed position and delivered without difficulty. The remainder of the was delivered with gentle traction and fundal pressure in the standard fashion. The mouth and nares were bulb suctioned. The cord was clamped and cut as the was stimulated. Cord clamping was delayed 30 seconds. The infant was handed off to the waiting nursing staff. The placenta was delivered with fundal massage and gentle traction in the standard fashion. The uterus was left in situ. The cervix was dilated with a ring forcep. The uterine incision was closed with #1 Vicryl in a running locked fashion. A second layer of the same suture was used in an imbricating fashion to help obtain hemostasis. Several 0 Vicryl [id number] sutures were needed in sinuses to obtain hemostasis.. The incision was examined and was found to be hemostatic. The left fallopian tube was identified and followed out to the fimbriated end. It was tented up with [place] clamps. The LigaSure device was used to clamp, seal and transect the antimesenteric portion of the tube to the insertion at the cornea which was clamped, sealed and transected with the LigaSure device. Excellent hemostasis of the pedicles was noted. The same procedure was performed on the contralateral side. The tubes were sent to pathology. Some hemoblast was placed over the uterine incision and pressure was held for 2 minutes and excellent hemostasis was noted. The rectus muscles were examined and any bleeding was Bovie cauterized. The parietal peritoneum and rectus muscles were closed en bloc with an 0 Vicryl running suture. Some hemoblast was placed over the rectus muscles. The rectus fascia was examined and any bleeding was Bovie cauterized and the rectus fascia was closed with 1 Vicryl suture in a running standard fashion. The subcutaneous tissue was examining and any bleeding was Bovie cauterized. The subcutaneous tissue was reapproximated with 3-0 Vicryl suture by the ESTIMATOR PRINTING. The skin was closed in a subcuticular fashion by the ESTIMATOR PRINTING with me present in the labor and delivery suite. I performed the remainder of the procedure with assistance. All sponge, lap, and needle counts were correct. The patient was taken to her room for recovery in a stable condition. Presentation: Positive for Vertex Amniotic Membrane Rupture Type: Artificial Amniotic Fluid Description: Clear Placental Delivery Description: Expressed Placenta Disposition: [facility] Specimen(s) Sent to Pathology: Bilateral fallopian tubes Cord Vessel Description: 3 Vessels Cord Entanglement: None A Gender: Female (Andree 8lb 1 oz) (1 minute): 7 (5 minute): 8 Delayed Cord Clamping: Yes Complications Complications: none Admit VTE Documentation VTE Present on Admission: No VTE Mechan Device Prophylaxis: SCD's VTE Pharm Prophylaxis Ordered: Yes
[2023-11-21] MEDS: Oxytocin 15 Units/NS 250ml 15 UNITS/250 ML IV.SOLN 83 UNITS IV (13:16)
[2023-11-21] MEDS: Ketorolac 30 MG/ML Syringe IV ×2 (14:05→19:59)
[2023-11-21] MEDS: 0.9% Saline Lock 10 ML Syringe IV (14:06)
[2023-11-21 14:16] LABS: Bedside Glucose 104 mg/dL (74-106)
[2023-11-22] MEDS: Enoxaparin 40 MG/0.4 ML Syringe SC (00:02)
[2023-11-22] MEDS: Ketorolac 30 MG/ML Syringe IV ×2 (02:30→07:41)
[2023-11-22] MEDS: 0.9% Saline Lock 10 ML Syringe IV ×2 (02:30→07:40)
[2023-11-22 02:35] VITALS: BP 115/69; PULSE 61; RESP 16; TEMP 36.8; O2SAT 97
[2023-11-22] MEDS: Acetaminophen 500 MG Tablet 1000 MG PO ×3 (04:17→17:22)
[2023-11-22 05:47] VITALS: BP 117/76; PULSE 68; RESP 16; TEMP 36.6; O2SAT 98
[2023-11-22 06:03] LABS: Hematocrit 27.7 % (37-47); Hemoglobin 8.9 g/dL (12.0-15.0); Mean Corp Hgb Conc 32.1 g/dL (32-36); Mean Corpuscular Hgb 28.2 pg (27.0-32.0); Mean Corpuscular Volume 87.7 fL (81-99); Mean Platelet Vol. 11.2 fl (6.2-12.0); Platelet Count 148 K/mm3 (150-450); RBC Distribution Width CV 17.2 % (11.6-14.6); RBC Distribution Width SD 54.1 fl (35.1-43.9); Red Blood Count 3.16 M/mm3 (4.2-5.4)
[2023-11-22 06:17] LABS: Bedside Glucose 92 mg/dL (74-106)
[2023-11-22 07:30] VITALS: BP 97/64; PULSE 72; RESP 16; TEMP 36.1; O2SAT 98
--- NOTE | 2023-11-22 07:33 | PN.OBGYN_ITS ---
Subjective Subjective pain well controlled, average lochia, no N/V. Objective Data Objective Data Vital Signs: Vital Signs Temp Pulse Resp BP Pulse Ox O2 Del Method 97.9 F 68 16 117/76 98 Room Air 11/22/23 05:47 11/22/23 05:47 11/22/23 05:47 11/22/23 05:47 11/22/23 05:47 11/22/23 05:47 Oxygen Delivery Method Room Air Weight: 100.698 kg Body Mass Index (BMI) 34.7 Intake & Output: Intake and Output for Last 24 Hours 11/20/23 11/21/23 11/22/23 23:59 23:59 23:59 Intake Total 1847.75 / 1847.75 Output Total 1450 / 1450 350 / 350 Balance 397.75 / 397.75 -350 / -350 Lab / Micro Data 11/22/23 05:55 Labs: Laboratory Results - last 24 hr 11/21/23 10:00: WBC 10.6, RBC 3.94 L, Hgb 10.9 L, Hct 34.3 L, MCV 87.1, MCH 27.7, MCHC 31.8 L, RDW Std Deviation 52.9 H, RDW Coeff of Lux 17.2 H, Plt Count 179, MPV 11.4, Immature Gran % (Auto) 1.400 H, Neut % (Auto) 75.7 H, Lymph % (Auto) 16.5 L, [place] % (Auto) 4.7, Eos % (Auto) 1.3, Baso % (Auto) 0.4, Absolute Neuts (auto) 8.0 H, Absolute Lymphs (auto) 1.74, Nucleated RBC % 0, Syphilis Total Ab Non-reactive, Blood Type O POSITIVE, Antibody Screen NEGATIVE 11/21/23 10:19: POC Glucose 90 11/21/23 13:52: POC Glucose 104 11/22/23 05:50: POC Glucose 92 11/22/23 05:55: WBC 11.0, RBC 3.16 L, Hgb 8.9 L, Hct 27.7 L, MCV 87.7, MCH 28.2, MCHC 32.1, RDW Std Deviation 54.1 H, RDW Coeff of Lux 17.2 H, Plt Count 148 L, MPV 11.2 Physical Exam Const alert General Appearance: cooperative GI GI Narrative: soft, moderate distention, fundus firm, appropriately tender. Abdominal bandage clean dry and intact Assessment & Plan (1) delivery delivered: PLAN: POD#1 s/p repeat c/s and tubal. Doing well. Acute on chronic anemia, appropriate for blood loss dufring surgery. and doing well. routine care today. .
[2023-11-22] MEDS: Senna/Docusate Sodium 1 Tablet PO (10:32)
[2023-11-22 12:10] VITALS: BP 118/71; PULSE 84; RESP 18; TEMP 36; O2SAT 98
--- NOTE | 2023-11-22 13:50 | CASEMGMT ---
Social Work Assessment Labor and Delivery Unit Patient Address: [address] [place] [address] Phone number: [phone] Date of Referral: 11/21/23 Time of Referral:? 10:56 and 15:35 Referred By: Consuelo Llanos Date of Intervention: 11/22/2023? Time of Intervention: 13:48 Reason for Referral:? Hx of PPD, Depression and Adjustment Disorder History obtained from: Medical records, mother of baby (MOB) Lynn and father of baby (FOB) Jason. Household composition:? GUSTAVO, FOShanice, their 3 sons, Rick, age 9, Alessandro, age 6, Luis, age 2 and baby Janae. Patient's parent/guardian status:? GUSTAVO and FOShanice have been together for 20 years and for 10. They live together and FOB will be actively involved in the care of baby as well as to the other children in the home. FOB will also serve as a support to MOB. Medical History: ?GUSTAVO has had 4 pregnancies and 4 births. GUSTAVO received care through [facility] which started at 14 weeks and 3 days. Baby?s birthweight: 8lbs and 1oz. Apgars: 7 and 8. Educational Status: No concerns with reading or writing with MOB or FOB. GUSTAVO earned a Bachelor?s degree and MAGGIE earned his Master?s. Financial Status: Secure.? MOB and FOB reported they are financially secure and are able to meet the needs of the family at this time. 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 Infant Supplies:? MOB and FOB confirmed they have all of the supplies they need for baby including but not limited to: bassinet, crib, car seat, diapers and clothing. GUSTAVO reported she?s going to borrow a pump from her friend. Childcare/Caregiver(s): GUSTAVO will be primary caregiver and is going to take a year off of work to care for baby. ?MAGGIE is not able to take paternity leave at this time and only has the rest of October off before he has to return to work. Transportation:? Secure. GUSTAVO and MAGGIE are both licensed drivers and reported that they have reliable transportation at this time to take baby to and from all of her doctor?s appointments. ?Baby?s parachute repairer was identified as Dr. Arango or ?anyone though [facility]?. Programs/Agencies Involved: None currently and none needed. ??? Children Services/Legal Issues: Denied. ? Behavioral Health Issues: ??Mental Health History: GUSTAVO has a history of PPD and Adjustment Disorder.? MOB reported some attachment issues as a child due to ?issues? she had with her family where her siblings were placed in foster and MOB was adopted by her grandparents. This allegedly occurred when GUSTAVO used to live in [place]. MOB stated she struggled some with attachment with her first baby, Rick, but stated she adjusted and described attachment and bonding to all of her children. MOB stated it was hard in the beginning, especially since she never felt that attachment with her mother so she just had to figure it out. MOB reported she?s on Lexapro which she reported manages her symptoms.? FOB reported anxiety and seasonal depression. FOB denied being on any medication and neither MOB nor FOB reported being involved in counseling at this time, nor are they interested. Substance Use History: Denied. MOB an FOB reported occasional alcohol use/socially however denied any abuse or any drug usage. ?Family History: Records review indicated family history. Drug Screens: None. [place] Depression Scale was administered. MOB?s score was noted to be a 4. viscose cellar worker provided education on score results which MOB verbalized she understood.? MOM reported that most of her symptoms were directly related to the very difficult she had in terms of being sick all the way through her entire and not being able to sleep due to the nausea, not depression. Family/Social Stressors: GUSTAVO has been very sick throughout her most recent which resulted in ?lack of sleep and increased irritability. Support Systems: MOB identified the FOB as her main support as well as PGP?s and MOB?s friend. Depression/Shaken Baby/Safe Sleeping: viscose cellar worker provided both verbal and written education on PPD, Shaken Baby and Safe Sleeping.? MOB and FOB both verbalized they understood.? MOB reported she experienced PPD with all of her children however more so with her first two just because of the adjustment of having a baby and with all of the changes that came with it. MOB reported less PPD with her last child, Henna. MOB and FOB are both aware of signs and symptoms and were able to identify available supports they can utilize if needed. ASSESSMENT: MOB an FOB provided consent for social work visit. Upon entry, MOB was sitting upright in her hospital bed and was just finishing baby and FOB was sitting nearby on the couch. MOB described baby as very ?gassy? and stated that was having an impact on baby wanting to feed and stated the nurse is aware and she has been doing some leg movement with the baby in an attempt to release some of the gas bubbles. viscose cellar worker observed positive interaction with MOB as well as with the FOB when MOB asked FOB to hold baby for a while. Positive interaction was observed between MOB and FOB. Both MOB and FOB were verbally engaged., FOB present with a bright and cheerful affect and MOB presented with more of a flat affect. MOB reported she was just very tired and exhausted from the whole as she didn?t sleep well and was sick the entire time. viscose cellar worker did ask the FOB to leave so social media community manager could talk alone with the MOB which both were agreeable to. MOB reported she feels safe in her environment and denied any safety concerns or domestic violence in the home. No additional concerns were observed or reported. Safe Plan of Care for infant related to substance use: N/A; not needed. ? PLAN:? Baby to be discharged home to MOB and FOB. viscose cellar worker also provided information on [employer]. Shena Galvez, MANAGER DAIRY, SUPERIOR COURT JUDGE
[2023-11-22] MEDS: Ibuprofen 600 MG Tablet PO ×2 (14:30→20:36)
[2023-11-22 17:32] VITALS: BP 128/79; PULSE 85; RESP 18; TEMP 36.1; O2SAT 96
[2023-11-22 20:36] VITALS: BP 136/78; PULSE 82; RESP 16; TEMP 36.2
[2023-11-23] MEDS: Acetaminophen 500 MG Tablet 1000 MG PO ×3 (00:38→12:23)
[2023-11-23] MEDS: Enoxaparin 40 MG/0.4 ML Syringe SC (00:38)
[2023-11-23 01:50] VITALS: BP 147/83; PULSE 89; RESP 16; TEMP 36.6; O2SAT 98
[2023-11-23] MEDS: Ibuprofen 600 MG Tablet PO ×2 (03:17→08:48)
[2023-11-23 08:20] VITALS: BP 126/84; PULSE 83; RESP 18; TEMP 36.3; O2SAT 97
[2023-11-23] MEDS: oxyCODONE 5 MG Tablet PO ×2 (08:47→13:07)
[2023-11-23] MEDS: Senna/Docusate Sodium 1 Tablet PO (08:47)
[2023-11-23 12:15] VITALS: BP 130/90; PULSE 83; RESP 18; TEMP 36.2; O2SAT 97
--- NOTE | 2023-11-23 12:33 | PCM.DC.SUM ---
Providers Date of Admission: 11/21/23 Date of Discharge: 11/23/23 Primary Care Physician: PHILOMENA Martinez Reason For Visit: REPEAT Diagnosis Discharge Diagnosis (1) delivery delivered: Status: Acute Code(s): O82 - Encounter for delivery without indication Plan: POD#1 s/p repeat c/s and tubal. Doing well. Acute on chronic anemia, appropriate for blood loss dufring surgery. and doing well. routine care today. . Medications at Discharge Home Medications Prenatabs FA 1 tab PO/SL DAILY 08/11/21 iron 1 tablet PO/SL QODAY anemia 08/11/21 ondansetron 4 mg disintegrating tablet 4 mg PO Q8H PRN PRN Nausea #20 tabs 04/26/23 promethazine 25 mg tablet 25 mg PO Q6H PRN nausea and vomiting #20 tabs 04/26/23 diphenhydramine HCl 50 mg/30 mL oral liquid (NightTime Sleep Aid (diphenhydramine)) 12.5 mg PO QHS sleep 11/21/23 omeprazole 10 mg capsule,delayed release 10 mg PO DAILY heartburn 11/21/23 ibuprofen 600 mg tablet 600 mg PO Q6H PRN Pain 20 days #60 TABLETS 11/23/23 oxycodone 5 mg tablet 5 mg PO Q8H PRN PRN severe pain 7 days #12 TABLETS 11/23/23 Hospital Course Operations - (Repeat LTCS with bialteral salpignectomy on 11/21/23) Procedures None Summary of Care Provided Minutes Spent on Discharge: 21 Hospital Course: 38-year-old high risk multigravida presents for repeat section on 11/21/2023. was complicated by tobacco use, advanced maternal age, previous sections, maternal obesity, and anxiety. Patient underwent repeat section with bilateral salpingectomy on 11/21/2023 without complication. By postoperative day #2 she was ambulating, urinating time regular diet without difficulty. The patient desired discharge to [facility] status. will remain under bili lights for now. is breast-feeding and doing well otherwise. Follow-up in the office in 1-2 and 6 weeks or as needed. Blood pressure check tomorrow. Patient is comfortable with this plan. Physical Exam Narrative Pain well-controlled. Average lochia. No nausea or vomiting. Ambulating and urinating without difficulty. Tolerating regular diet. Assessment and plan postoperative day #2 status post repeat section with bilateral salpingectomy. Patient and are doing well. is under bili lights. Patient desires discharge to hotel status. This document will act as patient's progress note as well as discharge summary. DC home with routine instructions and prescriptions. Const alert General Appearance: cooperative GI GI Narrative: soft, moderate distention, fundus firm, appropriately tender. Abdominal bandage clean dry and intact Weight / BMI Weight Weight: 100.698 kg Body Mass Index (BMI) 34.7 ABG / Lab / Microbiology Data 11/22/23 05:55 D/C Instructions Discharge Diet: No restrictions May resume sexual activity in: 4-6 weeks Lifting Restrictions: 20 pounds Additional Activity Instructions: Nothing in the vagina for 4-6 weeks. You may return to work/school in 6 weeks. Call your doctor if your incision/area has: Continuous Slow Oozing, Sudden Increased Bleeding, Increased Pain/ Swelling, Increased Redness and Foul Smelling Discharge Call your doctor if you observe: Fever of 101 or Higher and Using more than 1 pad per hour (for 2 hours) Suture Line Care: Avoid Pulling/Pushing and Avoid Pinching/Bending Cleanse incision/area with: Keep Dressing Clean & Dry Please Follow Up With: Consuelo Llanos MD When: Call to make an appointment for an incision check in 1-2 [phone]. You will need a post check in 6 weeks. Meaningful Use Info Meaningful Use Meaningful Use Diagnoses (Choose all that apply): None applicable Ischemic Stroke Statin Dosing Therapy Reference: STATIN DOSE THERAPY REFERENCE: * Patients > 75 years receive moderate or high dose statin therapy. * Patients 75 years or YOUNGER should receive HIGH intensity statin dose unless contraindicated. You will be required to document reason for non-treatment if statin daily dose does not meet guidelines. HIGH DOSE STATIN THERAPY DAILY Atorvastatin > than or = to 40 mg Rosuvastatin > than or = to 20 mg Amlodipine + Atorvastatin > than or = to 2.5/40 mg Ezetimibe + Simvastatin 10/80 mg Simvastatin 80mg Discharge Plan Admission Admit Date/Time: 11/21/23 09:34 Primary Reason for Your Visit: delivery and tubal sterilization Attending Provider: Viet,Consuelo Primary Care Provider: Emili Dennis Discharge Orders/Prescriptions Prescriptions: New ibuprofen 600 mg tablet 600 mg PO Q6H PRN (Reason: Pain) 20 Days Qty: 60 1RF oxycodone 5 mg tablet 5 mg PO Q8H PRN PRN (Reason: severe pain) 7 Days Qty: 12 0RF Continued iron 1 tablet PO/SL QODAY NightTime Sleep Aid (diphen) 50 mg/30 mL liquid 12.5 mg PO QHS Discontinued insulin lispro [Humalog KwikPen Insulin] 100 unit/mL insulin pen 30 unit subcut DAILY Patient Comments: take at bedtime No Action Prenatabs FA 1 tab PO/SL DAILY ondansetron 4 mg tablet,disintegrating 4 mg PO Q8H PRN PRN (Reason: Nausea) Qty: 20 0RF promethazine 25 mg tablet 25 mg PO Q6H PRN (Reason: nausea and vomiting) Qty: 20 0RF omeprazole 10 mg capsule,delayed release(DR/EC) 10 mg PO DAILY Referrals / Follow Up: Emili Dennis PA [Primary Care Provider] - Disposition Disposition (needs filled in before D/C Order can be placed): Home, Self Care
[2023-11-26 06:00] LABS: Pathology Specimen OB SEE PATHOLOGY REPORT
== END 2023-11-23 13:10 | disposition home or self-care (01) | DRG 785 ==
PROVIDERS: Admitting Provider Obstetrics & Gynecology; PCP Physician Assistant; Visit Provider Obstetrics & Gynecology
PROC: (CPT 59514; principal; 2023-11-21 11:45)
DX: O34.211 Maternal care for low transverse scar from previous cesarean delivery (principal); O24.424 Gestational diabetes mellitus in childbirth, insulin controlled; O99.214 Obesity complicating childbirth; Z30.2 Encounter for sterilization; Z37.0 Single live birth; Z3A.37 37 weeks gestation of pregnancy; Z87.891 Personal history of nicotine dependence
CPT/HCPCS: 59050; 82962; 85025; 85027; 86780; 86850; 86900; 86901; 88302; 99221; J7120; A4216; G0378; J2405